=== PATIENT | female | born 1965 | race Caucasian/White ===

== ENCOUNTER 2016-08-14 17:46 | Inpatient (IN) ==
--- NOTE | 2016-08-14 18:21 | Emergency Department Note ---
Disposition Clinical Impression: Depression, Auditory hallucinations Disposition: Admitted As Inpatient Condition: Good Referrals: Eli Carrillo, GEODESIST [Partnered Physician] - Forms: ED Satisfaction Letter Time of Disposition: 22:25 Psych HPI - General Chief Complaint: ED Psychiatric Symptoms Stated Complaint: psych eval Time Seen by Provider: 08/14/16 17:59 Source: patient Mode of arrival: ambulatory Limitations: no limitations Nursing Notes Reviewed: Yes Vital Signs Reviewed: Yes - History of Present Illness HPI Narrative: This is a 51-year-old female who states she wants to be evaluated by [facility]. Patient states she feels like her psych medications are messed up and she is having auditory hallucinations and depression. Patient denies any active suicidal or homicidal thoughts. Patient states she has been mildly short of breath but denies any fever or coughing. Patient states she has not had any chest pain. Patient has no other physical complaints. Pt complaint: feels depressed, other (auditory hallucinations) Onset (ago): day(s) - Related Data Home Medications Medication Instructions Recorded Confirmed Albuterol Sulfate [Albuterol 1 - 2 puff IH Q6HR PRN 07/09/16 08/04/16 Inhaler] Aspirin [Lo-Dose Aspirin EC] 81 mg PO DAILY 07/09/16 08/04/16 Atorvastatin [Lipitor] 10 mg PO DAILY 07/09/16 08/04/16 Budesonide/Formoterol 80/4.5 2 puff IH BID 07/09/16 08/04/16 [Symbicort 80/4.5] Escitalopram [Lexapro] 30 mg PO DAILY 07/09/16 08/04/16 Hydroxychloroquine [Plaquenuil] 200 mg PO BID 07/09/16 08/04/16 Levothyroxine [Synthroid] 50 mcg PO DAILY 07/09/16 08/04/16 SitaGLIPtin [Januvia] 100 mg PO DAILY 07/09/16 08/04/16 Topiramate [Topamax] 100 mg PO QAM 07/09/16 08/04/16 Topiramate [Topamax] 200 mg PO HS 07/09/16 08/04/16 OxyCODONE Immed Rel [Roxicodone 5 5 mg PO Q6HR PRN 08/04/16 08/04/16 MG] Previous Rx's Medication Instructions Recorded TraZODone 50 mg PO HS PRN #30 tablet 07/15/16 Ziprasidone [Geodon] 20 mg PO BID #60 capsule 07/15/16 Atorvastatin [Lipitor] 40 mg PO HS #60 tablet 08/07/16 Omeprazole [PriLOSEC] 20 mg PO DAILY #20 cap 08/07/16 Allergies Allergy/AdvReac Type Severity Reaction Status Date / Time carbamazepine [From Tegretol] Allergy See Verified 08/11/16 20:11 Comments divalproex sodium Allergy See Verified 08/11/16 20:11 [From Depakote] Comments [place] Allergy See Verified 08/11/16 20:11 Comments meloxicam [From Mobic] Allergy See Verified 08/11/16 20:11 Comments phenytoin [From Dilantin] Allergy See Verified 08/11/16 20:11 Comments tramadol [From Ultram] Allergy See Verified 08/11/16 20:11 Comments methocarbamol [From Robaxin] AdvReac Dizziness Verified 08/11/16 20:11 NSAIDS (Non-Steroidal AdvReac See Verified 08/11/16 20:11 Anti-Inflamma Comments All systems ED: reviewed and negative except as stated. Constitutional: Denies: fever, chills, weakness, weight change Eyes: Denies: eye pain, eye discharge, vision change ENT ED: Denies: ear pain, throat pain, dental pain, hearing loss, epistaxis, congestion, dysphagia Cardiovascular: Denies: chest pain, palpitations, dyspnea on exertion, edema, syncope Respiratory: Reports: dyspnea. Denies: cough, wheezes, hemoptysis, stridor Gastrointestinal: Denies: abdominal pain, nausea, vomiting, diarrhea, constipation, hematemesis, melena, hematochezia Genitourinary: Denies: dysuria, frequency, hematuria, discharge Musculoskeletal: Denies: back pain, neck pain, arthralgia, myalgia Integumentary: Denies: rash, abrasion, lesions Neurological: Denies: headache, weakness, numbness, paresthesias, confusion, abnormal gait, vertigo Psychiatric: Reports: depression, auditory hallucinations. Denies: anxiety, suicidal thoughts, homicidal thoughts, visual hallucinations Endocrine: Denies: fatigue Hematological/Lymphatic: Denies: easy bleeding, easy bruising Allergic/Immunologic: Denies: facial swelling, urticaria Past Medical History - Past Medical History Attestation: Yes The following information was validated with the patient. Source: patient Medical history: Reports: arthritis, asthma, COPD, coronary artery disease, diabetes, fibromyalgia, GERD, hyperlipidemia, hypertension, kidney stones, migraine, osteoporosis, RA, thyroid disease, TIA, other Surgical history: Reports: appendectomy, hysterectomy, orthopedic, other (. Lumbar spine surgery. Back surgery.), sinus surgery (Tonsillectomy adenoidectomy. Maxillofacial reconstructive surgery.), VIKI/BSO (Ovarian surgery.), other (Vaginal reconstruction surgery.) Psychiatric history: Reports: anxiety, bipolar, depression, PTSD, prior suicide attempt, previous psychiatric hospitalization, other - Social History Smoking Status: Current every day smoker Smokeless Tobacco Status: No Alcohol use: Reports: none Drug use: Reports: none Physical Exam - General Limitations: no limitations General appearance: alert, in no apparent distress - Head Head exam: atraumatic, normocephalic, normal inspection - Eye Eye exam: Present: normal appearance, PERRL, EOMI - ENT ENT exam: normal exam, normal oropharynx, mucous membranes moist - Expanded ENT Exam External ear exam: Present: normal external inspection Mouth exam: Present: normal external inspection Teeth exam: Present: normal inspection Throat exam: Present: normal inspection - Neck Neck exam: Present: normal inspection, full ROM, trachea midline - Chest Chest inspection: Present: normal inspection, symmetric chest wall rise - Respiratory Respiratory exam: Present: normal lung sounds bilaterally - Cardiovascular Cardiovascular exam: Present: normal rhythm, tachycardia, normal heart sounds - Abdominal Exam Abdominal exam: Present: soft, Non-Tender. Absent: tenderness, distention, guarding, rebound, rigidity - Extremities Exam Extremities exam: Present: normal inspection, full ROM. Absent: tenderness, pedal edema - Expanded Upper Extremity Exam Shoulder exam: Present: normal inspection, full ROM Arm exam: Present: normal inspection, full ROM Elbow exam: Present: normal inspection, full ROM Forearm/Wrist exam: Present: normal inspection, full ROM Hand exam: Present: normal inspection, full ROM Vascular exam: Normal: capillary refill, radial pulse - Expanded Lower Extremity Exam Hip/Pelvis exam: Present: normal inspection, full ROM Upper leg exam: Present: normal inspection, full ROM Knee exam: Present: normal inspection, full ROM Lower leg exam: Present: normal inspection, full ROM Ankle exam: Present: normal inspection, full ROM Foot/toe exam: Present: normal inspection, full ROM Neurovascular/Tendon exam: Absent: motor deficit, sensory deficit, tendon deficit - Back Exam Back exam: Present: normal inspection, full ROM. Absent: tenderness - Neurological Exam Neurological exam: Present: alert, oriented X3 - Expanded Neurological Exam Patient oriented to: Present: person, place, time Coma Scale Eye Opening: Spontaneous Coma Scale Motor Response: Obeys Commands Coma Scale Verbal Response: Oriented Coma Scale Total: 15 - Psychiatric Psychiatric exam: Present: depressed, other (auditory hallucinations) - Skin Skin exam: Present: warm, dry, intact, normal color Course - Consultations Consultation #1: 1A evaluated pt and they are going to admit her. Time: 22:25 Vital Signs Temperature 97.4 F L 08/14/16 17:54 Pulse Rate 121 08/14/16 17:54 Respiratory Rate 18 08/14/16 17:54 Blood Pressure 132/90 08/14/16 17:54 O2 Sat by Pulse Oximetry 94 L 08/14/16 17:54 Temperature 97.4 F L 08/14/16 17:54 Pulse Rate 121 08/14/16 18:22 Respiratory Rate 18 08/14/16 18:22 Blood Pressure 132/90 08/14/16 18:22 O2 Sat by Pulse Oximetry 94 L 08/14/16 18:22 Oxygen Delivery Oxygen Delivery Room Air Psych - Medical Records Medical records reviewed: Yes I reviewed the patient's medical records. - Lab Data Lab results reviewed: Yes I reviewed the patient's lab results. Result diagrams: 08/14/16 18:37 08/14/16 18:37 Lab Results 08/14/16 08/14/16 08/14/16 Range/Units 18:37 18:37 18:37 WBC 9.8 (4.3-11.1) K/mcL RBC 5.58 H (3.82-4.97) M/mcL Hgb 17.3 H (11.5-15.4) g/dL Hct 50.4 H (35.3-44.9) % MCV 90.3 (83.0-100.0) fL MCH 31.0 (28.0-33.3) pg MCHC 34.3 (31.6-35.5) g/dL RDW 13.5 (11.5-14.5) % Plt Count 321 (140-400) K/mcL MPV 8.4 L (9.4-12.4) fL Immature Gran % 0.3 (0-4) % Seg Neutrophils % 58.4 % Lymphocytes % 34.3 % Monocytes % 6.4 % Eosinophils % 0.2 % Basophils % 0.4 % Neutrophils # 5.7 (1.6-8.9) K/mcL Lymphocytes # 3.4 (0.6-4.6) K/mcL Monocytes # 0.6 (0.0-1.3) K/mcL Eosinophils # 0.0 (0.0-0.6) K/mcL Basophils # 0.0 (0.0-0.2) K/mcL D-Dimer (0-500) ng/mLFEU Sodium 140 (136-145) mEq/L Potassium 3.3 L (3.5-4.5) mEq/L Chloride 106 (98-109) mEq/L Carbon Dioxide 23 (19-29) mEq/L BUN 10 (7-20) mg/dL Creatinine 0.94 (0.57-1.11) mg/dL Est GFR ( Amer) > 60 (> 60) Est GFR (Non-Af Amer) > 60 (> 60) BUN/Creatinine Ratio 11 (6-26) Glucose 142 H (70-99) mg/dL Calculated Osmolality 291 (280-300) Calcium 9.9 (8.6-10.8) mg/dL Total Bilirubin (0.2-1.2) mg/dL Direct Bilirubin (0.0-0.5) mg/dL Indirect Bilirubin (0.0-1.2) mg/dL AST (5-34) Units/L ALT (0-55) Units/L Alkaline Phosphatase (38-126) Units/L Troponin I (0-0.03) ng/mL B-Natriuretic Peptide < 10 (0-100) pg/mL Serum Total Protein (6.0-8.3) g/dL Albumin (3.5-5.0) g/dL Globulin (2.4-3.5) g/dL Albumin/Globulin Ratio (1.1-2.2) TSH (0.350-4.840) mcIU/mL Serum , Qual (Negative) Urine Color (Yellow) Urine Clarity (Clear) Urine pH (5.0-8.0) pH Units Ur Specific [place] (1.010-1.025) Urine Protein (Neg-Trace) mg/dL Urine Glucose (UA) (Normal) mg/dL Urine Ketones (Negative) mg/dL Urine Blood (Negative) Urine Nitrite (Negative) Urine Bilirubin (Negative) Urine Urobilinogen (Normal) mg/dL Ur Leukocyte Esterase (Negative) Urine Microscopic RBC (0-3) per hpf Urine Microscopic WBC (0-3) per hpf Ur Squamous Epith Cells (None-Few) per lpf Urine Bacteria (None-Few) per hpf Hyaline Casts (None-Few) per lpf Ur Culture Indicated? (NO) Salicylates (15-30) mg/dL Urine Opiates Screen (Styhkf=264) ng/mL Acetaminophen < 1.0 L (10-30) mcg/mL Ur Barbiturates Screen (Khcnvj=264) ng/mL Ur Phencyclidine Scrn (Cutoff=25) ng/mL Ur Amphetamines Screen (Awqelm=8760) ng/mL U Benzodiazepines Scrn (Mkuixe=625) ng/mL Urine Cocaine Screen (Cutoff= 300) ng/mL U Marijuana (THC) Screen (Cutoff = 50) ng/mL Ethyl Alcohol (0-10) mg/dL 08/14/16 08/14/16 08/14/16 Range/Units 18:37 18:37 18:37 WBC (4.3-11.1) K/mcL RBC (3.82-4.97) M/mcL Hgb (11.5-15.4) g/dL Hct (35.3-44.9) % MCV (83.0-100.0) fL MCH (28.0-33.3) pg MCHC (31.6-35.5) g/dL RDW (11.5-14.5) % Plt Count (140-400) K/mcL MPV (9.4-12.4) fL Immature Gran % (0-4) % Seg Neutrophils % % Lymphocytes % % Monocytes % % Eosinophils % % Basophils % % Neutrophils # (1.6-8.9) K/mcL Lymphocytes # (0.6-4.6) K/mcL Monocytes # (0.0-1.3) K/mcL Eosinophils # (0.0-0.6) K/mcL Basophils # (0.0-0.2) K/mcL D-Dimer (0-500) ng/mLFEU Sodium (136-145) mEq/L Potassium (3.5-4.5) mEq/L Chloride (98-109) mEq/L Carbon Dioxide (19-29) mEq/L BUN (7-20) mg/dL Creatinine (0.57-1.11) mg/dL Est GFR ( Amer) (> 60) Est GFR (Non-Af Amer) (> 60) BUN/Creatinine Ratio (6-26) Glucose (70-99) mg/dL Calculated Osmolality (280-300) Calcium (8.6-10.8) mg/dL Total Bilirubin 0.3 (0.2-1.2) mg/dL Direct Bilirubin 0.1 (0.0-0.5) mg/dL Indirect Bilirubin 0.2 (0.0-1.2) mg/dL AST 15 (5-34) Units/L ALT 15 (0-55) Units/L Alkaline Phosphatase 65 (38-126) Units/L Troponin I 0.00 (0-0.03) ng/mL B-Natriuretic Peptide (0-100) pg/mL Serum Total Protein 8.2 (6.0-8.3) g/dL Albumin 4.2 (3.5-5.0) g/dL Globulin 4.0 H (2.4-3.5) g/dL Albumin/Globulin Ratio 1.1 (1.1-2.2) TSH 5.099 H (0.350-4.840) mcIU/mL Serum , Qual Negative (Negative) Urine Color (Yellow) Urine Clarity (Clear) Urine pH (5.0-8.0) pH Units Ur Specific [place] (1.010-1.025) Urine Protein (Neg-Trace) mg/dL Urine Glucose (UA) (Normal) mg/dL Urine Ketones (Negative) mg/dL Urine Blood (Negative) Urine Nitrite (Negative) Urine Bilirubin (Negative) Urine Urobilinogen (Normal) mg/dL Ur Leukocyte Esterase (Negative) Urine Microscopic RBC (0-3) per hpf Urine Microscopic WBC (0-3) per hpf Ur Squamous Epith Cells (None-Few) per lpf Urine Bacteria (None-Few) per hpf Hyaline Casts (None-Few) per lpf Ur Culture Indicated? (NO) Salicylates < 5.0 L (15-30) mg/dL Urine Opiates Screen (Rwrulm=646) ng/mL Acetaminophen (10-30) mcg/mL Ur Barbiturates Screen (Jtpjcc=935) ng/mL Ur Phencyclidine Scrn (Cutoff=25) ng/mL Ur Amphetamines Screen (Svriax=2417) ng/mL U Benzodiazepines Scrn (Mimakl=477) ng/mL Urine Cocaine Screen (Cutoff= 300) ng/mL U Marijuana (THC) Screen (Cutoff = 50) ng/mL Ethyl Alcohol < 10 (0-10) mg/dL 08/14/16 08/14/16 08/14/16 Range/Units 18:37 19:00 19:00 WBC (4.3-11.1) K/mcL RBC (3.82-4.97) M/mcL Hgb (11.5-15.4) g/dL Hct (35.3-44.9) % MCV (83.0-100.0) fL MCH (28.0-33.3) pg MCHC (31.6-35.5) g/dL RDW (11.5-14.5) % Plt Count (140-400) K/mcL MPV (9.4-12.4) fL Immature Gran % (0-4) % Seg Neutrophils % % Lymphocytes % % Monocytes % % Eosinophils % % Basophils % % Neutrophils # (1.6-8.9) K/mcL Lymphocytes # (0.6-4.6) K/mcL Monocytes # (0.0-1.3) K/mcL Eosinophils # (0.0-0.6) K/mcL Basophils # (0.0-0.2) K/mcL D-Dimer < 215 (0-500) ng/mLFEU Sodium (136-145) mEq/L Potassium (3.5-4.5) mEq/L Chloride (98-109) mEq/L Carbon Dioxide (19-29) mEq/L BUN (7-20) mg/dL Creatinine (0.57-1.11) mg/dL Est GFR ( Amer) (> 60) Est GFR (Non-Af Amer) (> 60) BUN/Creatinine Ratio (6-26) Glucose (70-99) mg/dL Calculated Osmolality (280-300) Calcium (8.6-10.8) mg/dL Total Bilirubin (0.2-1.2) mg/dL Direct Bilirubin (0.0-0.5) mg/dL Indirect Bilirubin (0.0-1.2) mg/dL AST (5-34) Units/L ALT (0-55) Units/L Alkaline Phosphatase (38-126) Units/L Troponin I (0-0.03) ng/mL B-Natriuretic Peptide (0-100) pg/mL Serum Total Protein (6.0-8.3) g/dL Albumin (3.5-5.0) g/dL Globulin (2.4-3.5) g/dL Albumin/Globulin Ratio (1.1-2.2) TSH (0.350-4.840) mcIU/mL Serum , Qual (Negative) Urine Color Yellow (Yellow) Urine Clarity Clear (Clear) Urine pH 6.0 (5.0-8.0) pH Units Ur Specific [place] 1.008 L (1.010-1.025) Urine Protein Negative (Neg-Trace) mg/dL Urine Glucose (UA) Normal (Normal) mg/dL Urine Ketones 15 H (Negative) mg/dL Urine Blood Negative (Negative) Urine Nitrite Negative (Negative) Urine Bilirubin Negative (Negative) Urine Urobilinogen Normal (Normal) mg/dL Ur Leukocyte Esterase Trace H (Negative) Urine Microscopic RBC 0-3 (0-3) per hpf Urine Microscopic WBC 5-15 H (0-3) per hpf Ur Squamous Epith Cells Many H (None-Few) per lpf Urine Bacteria Few (None-Few) per hpf Hyaline Casts None Seen (None-Few) per lpf Ur Culture Indicated? YES A (NO) Salicylates (15-30) mg/dL Urine Opiates Screen Negative (Nfcezy=185) ng/mL Acetaminophen (10-30) mcg/mL Ur Barbiturates Screen Negative (Fdedfy=992) ng/mL Ur Phencyclidine Scrn Negative (Cutoff=25) ng/mL Ur Amphetamines Screen Negative (Juymnm=5449) ng/mL U Benzodiazepines Scrn Negative (Pihdop=010) ng/mL Urine Cocaine Screen Negative (Cutoff= 300) ng/mL U Marijuana (THC) Screen Negative (Cutoff = 50) ng/mL Ethyl Alcohol (0-10) mg/dL - EKG Data EKG attestation: Yes I reviewed and interpreted this EKG. EKG shows normal: sinus rhythm Rate: tachycardia (113) Rhythm: NSR Foster/QRS: normal Interpretation: nonspecific ST-T wave changes Psychiatric Medical Clearance - Medical Clearance Checklist Medical History: No Social History Section defined Current Vitals: Last Vital Signs Temp 97.4 F L 08/14/16 17:54 Pulse 121 08/14/16 18:22 Resp 18 08/14/16 18:22 BP 132/90 08/14/16 18:22 Pulse Ox 94 L 08/14/16 18:22 Psychiatric Lab Panel: Drug Levels and Toxicity 08/14/16 08/14/16 08/14/16 18:37 18:37 19:00 Urine Opiates Screen Negative Acetaminophen < 1.0 L Ur Barbiturates Screen Negative Ur Phencyclidine Scrn Negative Ur Amphetamines Screen Negative U Benzodiazepines Scrn Negative Urine Cocaine Screen Negative U Marijuana (THC) Screen Negative Ethyl Alcohol < 10 Abnormal Labs: Abnormal lab results RBC 5.58 M/mcL (3.82-4.97) H 08/14/16 18:37 Hgb 17.3 g/dL (11.5-15.4) H 08/14/16 18:37 Hct 50.4 % (35.3-44.9) H 08/14/16 18:37 MPV 8.4 fL (9.4-12.4) L 08/14/16 18:37 Potassium 3.3 mEq/L (3.5-4.5) L 08/14/16 18:37 Glucose 142 mg/dL (70-99) H 08/14/16 18:37 Globulin 4.0 g/dL (2.4-3.5) H 08/14/16 18:37 TSH 5.099 mcIU/mL (0.350-4.840) H 08/14/16 18:37 Ur Specific [place] 1.008 (1.010-1.025) L 08/14/16 19:00 Urine Ketones 15 mg/dL (Negative) H 08/14/16 19:00 Ur Leukocyte Esterase Trace (Negative) H 08/14/16 19:00 Urine Microscopic WBC 5-15 per hpf (0-3) H 08/14/16 19:00 Ur Squamous Epith Cells Many per lpf (None-Few) H 08/14/16 19:00 Ur Culture Indicated? YES (NO) A 08/14/16 19:00 Salicylates < 5.0 mg/dL (15-30) L 08/14/16 18:37 Acetaminophen < 1.0 mcg/mL (10-30) L 08/14/16 18:37 Statement of Medical Clearance: I have evaluated the patient, reviewed diagnostic information, and certify that the patient's medical condition is sufficiently stable that transfer to the psychiatric unit does not pose a significant risk of deterioration.
[2016-08-14 18:54] LABS: Basophils % 0.4 %; Eosinophils % 0.2 %; Hematocrit 50.4 % (35.3-44.9); Hemoglobin 17.3 g/dL (11.5-15.4); Immature Granulocytes % 0.3 % (0-4); Lymphocytes # 3.4 K/mcL (0.6-4.6); Lymphocytes % 34.3 %; Mean Corpuscular HGB Conc 34.3 g/dL (31.6-35.5); Mean Corpuscular Volume 90.3 fL (83.0-100.0); Mean Platelet Volume 8.4 fL (9.4-12.4); Monocytes # 0.6 K/mcL (0.0-1.3); Monocytes % 6.4 %; Neutrophils # 5.7 K/mcL (1.6-8.9); Platelet Count 321 K/mcL (140-400); Red Blood Count 5.58 M/mcL (3.82-4.97); Red Cell Distribution Width 13.5 % (11.5-14.5); Segmented Neutrophils % 58.4 %
[2016-08-14 19:10] LABS: Alanine Aminotransferase 15 Units/L (0-55); Albumin 4.2 g/dL (3.5-5.0); Albumin/Globulin Ratio 1.1 (1.1-2.2); Alkaline Phosphatase 65 Units/L (38-126); Aspartate Amino Transferase 15 Units/L (5-34); BUN/Creatinine Ratio 11 (6-26); Bilirubin,Direct 0.1 mg/dL (0.0-0.5); Bilirubin,Indirect 0.2 mg/dL (0.0-1.2); Bilirubin,Total 0.3 mg/dL (0.2-1.2); Blood Urea Nitrogen 10 mg/dL (7-20); Calcium 9.9 mg/dL (8.6-10.8); Carbon Dioxide 23 mEq/L (19-29); Chloride 106 mEq/L (98-109); Glucose 142 mg/dL (70-99); Osmolality,Calculated 291 (280-300); Potassium 3.3 mEq/L (3.5-4.5); Sodium 140 mEq/L (136-145); Total Protein 8.2 g/dL (6.0-8.3); eGFR For African Americans > 60 (> 60); eGFR For Non-African Americans > 60 (> 60)
[2016-08-14 19:11] LABS: Acetaminophen < 1.0 mcg/mL (10-30); Ethanol < 10 mg/dL (0-10); Salicylate < 5.0 mg/dL (15-30)
[2016-08-14 19:12] LABS: Bilirubin,Urine Negative (Negative); Blood,Urine Negative (Negative); Clarity,Urine Clear (Clear); Color,Urine Yellow (Yellow); Glucose,Urine (UA) Normal (Normal); Ketones,Urine 15 mg/dL (Negative); Leukocyte Esterase,Urine Trace (Negative); Nitrite,Urine Negative (Negative); Protein,Urine Negative (Neg-Trace); Specific Gravity,Urine 1.008 (1.010-1.025); Urobilinogen,Urine Normal (Normal)
[2016-08-14 19:17] LABS: Amphetamine Screen,Urine Negative ng/mL (Cutoff=1000); Bacteria,Urine Few per hpf (None-Few); Barbiturate Screen,Urine Negative ng/mL (Cutoff=200); Benzodiazepines Screen,Urine Negative ng/mL (Cutoff=200); Cannabinoid Screen,Urine Negative ng/mL (Cutoff = 50); Cocaine Screen,Urine Negative ng/mL (Cutoff= 300); Hyaline Casts,Urine None Seen per lpf (None-Few); Opiate Screen,Urine Negative ng/mL (Cutoff=300); Phencyclidine Screen,Urine Negative ng/mL (Cutoff=25); Squamous Epithelial Cell,Urine Many per lpf (None-Few)
[2016-08-14 19:31] LABS: Thyroid Stimulating Hormone 5.099 mcIU/mL (0.350-4.840)
[2016-08-14 19:35] LABS: RBC,Urine 0-3 per hpf (0-3)
[2016-08-15] MEDS ORDERED: Haloperidol Lactate 5 MG/ML VIAL IM PRN (02:33)
[2016-08-15] MEDS ORDERED: Mag Hydrox/Al Hydrox/Simeth 30 ML UDC PO PRN (02:33)
[2016-08-15] MEDS ORDERED: *HR* LORazepam 2 MG/ML VIAL IM PRN (02:33)
[2016-08-15] MEDS ORDERED: *HR* LORazepam 1 MG TABLET PO PRN (02:33)
[2016-08-15] MEDS ORDERED: Acetaminophen 325 MG TABLET PO PRN (02:33)
[2016-08-15] MEDS ORDERED: MOM Conc 10 ML UD.LIQ PO PRN (02:33)
[2016-08-15] MEDS: Topiramate 100 MG TABLET PO SCH ×2 (09:40→21:34)
[2016-08-15] MEDS: *HR* SitaGLIPtin 100 MG TABLET PO SCH (09:40)
[2016-08-15] MEDS: Nicotine 21 MG PATCH.TD24 TD SCH (09:40)
[2016-08-15] MEDS: Aspirin Enteric Coated 81 MG Tablet PO SCH (09:40)
[2016-08-15] MEDS: Ziprasidone 20 MG CAPSULE PO SCH ×2 (09:40→21:34)
[2016-08-15] MEDS: Budesonide/Formoterol 80/4.5 MDI IH SCH (09:42)
--- NOTE | 2016-08-15 10:47 | Psychiatry History & Physical ---
Date of Encounter: 08/15/16 Time of Encounter: 10:40 History of Present Illness Patient Stated Chief Complaint: "I am not sure" Medicare Admission Attestation: For traditional Medicare patients the provided hospital inpatient services are reasonable and necessary and in the case of services not specified as inpatient -only under 42 CFR 419.22 (n), that they are appropriately provided as inpatient services in accordance 42 CFR 412.3. For Critical Access Hospital the patient may reasonably be expected to be discharged or transferred to a hospital within 96 hours after admission to the Critical Access Hospital. Admitted From: Emergency Dept Plans for Post Hospital Care: Home History of Present Illness: Ms. Ash is a 51 year old female who is known to us from recent hospitalization. She is noted to have a diagnosis of bipolar disorder. Patient was back in the emergency department with complaint of hearing voices. Patient was confused and endorsing auditory hallucinations. Patient has not been compliant with her medications especially the Geodon and been noticing a relapse of her psychotic symptoms. Patient was overwhelmed and anxious and kept responding with her answers "I do not know" and "I am not sure". A detailed account of history is unable to be gathered since patient is not very cooperative and forthcoming during the interview. Most of the history is gathered from her previous records, from her recent hospitalization. She did endorse depressed mood with sadness hopeless and helpless feelings. She was unable to identify any trigger or precipitating factor for her recent bout of depression and hallucinations other than being noncompliant with her medications. Since patient is reporting of auditory hallucinations and is decompensating and deteriorating it was decided to hospitalize her at [facility] for stabilization Past Med Surg Social Fam HX - Past Medical History Medical history: arthritis, asthma, COPD, coronary artery disease, diabetes, fibromyalgia, GERD, hyperlipidemia, hypertension, kidney stones, migraine, osteoporosis, RA, thyroid disease, TIA, other - Past Psychiatric History Psychiatric history: Reports: anxiety, bipolar, depression, previous psychiatric hospitalization Past psychiatric history details: The patient is noted to have a diagnosis of bipolar disorder. Patient was recently hospitalized with us approximately a month ago. Family psychiatric history: Yes Family Psychiatric History Details: Mother had bipolar disorder and father also has mental health problems. Family History of Suicide: Completed - Past Surgical History Surgical History: appendectomy, hysterectomy, orthopedic, other, sinus surgery, VIKI/BSO, other - Social History Smoking Status: Current every day smoker Smokeless Tobacco Status: No Alcohol use: none Drug use: none Occupational status: disabled Current living situation: Home Activity Level: Independent ambulation Recent Out of Country Travel Within the Last 8 Weeks: No Exposure or Possible Exposure to Illness During Travel: No Medications & Allergies Albuterol Sulfate [Albuterol Inhaler] 1 - 2 puff IH Q6HR PRN 07/09/16 [History] Aspirin [Lo-Dose Aspirin EC] 81 mg PO DAILY 07/09/16 [History] Budesonide/Formoterol 80/4.5 [Symbicort 80/4.5] 2 puff IH BID 07/09/16 [History ] Escitalopram [Lexapro] 30 mg PO DAILY 07/09/16 [History] Hydroxychloroquine [Plaquenuil] 200 mg PO BID 07/09/16 [History] Levothyroxine [Synthroid] 50 mcg PO DAILY 07/09/16 [History] SitaGLIPtin [Januvia] 100 mg PO DAILY 07/09/16 [History] Topiramate [Topamax] 100 mg PO QAM 07/09/16 [History] Topiramate [Topamax] 200 mg PO HS 07/09/16 [History] TraZODone 50 mg PO HS PRN #30 tablet 07/15/16 [Rx] Ziprasidone [Geodon] 20 mg PO BID #60 capsule 07/15/16 [Rx] OxyCODONE Immed Rel [Roxicodone 5 MG] 5 mg PO Q6HR PRN 08/04/16 [History] Atorvastatin [Lipitor] 40 mg PO HS #60 tablet 08/07/16 [Rx] Omeprazole [PriLOSEC] 20 mg PO DAILY #20 cap 08/07/16 [Rx] Allergies carbamazepine [From Tegretol] Allergy (Verified 08/11/16 20:11) See Comments UNABLE TO VERIFY REACTION- NOT LISTED ON PATIENT'S ECW LAST APPT. AND PATIENT UNABLE TO CONFIRM- ALL ALLERGIES/REACTIONS OBTAINED FROM PATIENT'S PCP: DR. VELEZ divalproex sodium [From Depakote] Allergy (Verified 08/11/16 20:11) See Comments UNABLE TO VERIFY REACTION- NOT LISTED ON PATIENT'S ECW LAST APPT. AND PATIENT UNABLE TO CONFIRM- ALL ALLERGIES/REACTIONS OBTAINED FROM PATIENT'S PCP: DR. VELEZ [place] Allergy (Verified 08/11/16 20:11) See Comments UNABLE TO VERIFY REACTION- NOT LISTED ON PATIENT'S ECW LAST APPT. AND PATIENT UNABLE TO CONFIRM- ALL ALLERGIES/REACTIONS OBTAINED FROM PATIENT'S PCP: DR. VELEZ meloxicam [From Mobic] Allergy (Verified 08/11/16 20:11) See Comments UNABLE TO VERIFY REACTION- NOT LISTED ON PATIENT'S ECW LAST APPT. AND PATIENT UNABLE TO CONFIRM- ALL ALLERGIES/REACTIONS OBTAINED FROM PATIENT'S PCP: DR. VELEZ phenytoin [From Dilantin] Allergy (Verified 08/11/16 20:11) See Comments UNABLE TO VERIFY REACTION- NOT LISTED ON PATIENT'S ECW LAST APPT. AND PATIENT UNABLE TO CONFIRM- ALL ALLERGIES/REACTIONS OBTAINED FROM PATIENT'S PCP: DR. VELEZ tramadol [From Ultram] Allergy (Verified 08/11/16 20:11) See Comments UNABLE TO VERIFY REACTION- NOT LISTED ON PATIENT'S ECW LAST APPT. AND PATIENT UNABLE TO CONFIRM- ALL ALLERGIES/REACTIONS OBTAINED FROM PATIENT'S PCP: DR. VELEZ methocarbamol [From Robaxin] Adverse Reaction (Verified 08/11/16 20:11) Dizziness NSAIDS (Non-Steroidal Anti-Inflamma Adverse Reaction (Verified 08/11/16 20:11) See Comments ELEVATED LIVER ENZYMES Review of Systems Constitutional: Denies: fever, chills, weakness, weight change Eyes: Denies: eye pain, vision change Ears, Nose, Throat: Denies: ear pain, throat pain, dental pain, hearing loss, congestion Cardiovascular: Denies: chest pain, palpitations, dyspnea on exertion Respiratory: Denies: cough, dyspnea, wheezes Gastrointestinal: Denies: abdominal pain, nausea, vomiting, diarrhea, constipation Genitourinary male: Denies: urgency, dysuria, frequency, genital lesions Genitourinary female: Denies: urgency, dysuria, frequency, abnormal menses, dyspareunia Musculoskeletal: Denies: joint swelling, joint pain Integumentary: Denies: rash, lesions, pruritus Neurological: Denies: headache, weakness, numbness, memory loss Psychiatric: Reports: depression, anxiety, auditory hallucinations, difficulty concentrating, hopelessness Endocrine: Denies: fatigue, heat or cold intolerance Hematologic/Lymphatic: Denies: easy bruising, lymphadenopathy Allergic/Immunologic: Denies: urticaria, itchy eyes Mental Status Exam Patient orientation: Yes Person, Yes Time, Yes Place Level of alertness: Other (At times appears confused and kept on referring as " I do not know") Patient appearance: Disheveled Behavior: nervous, anxious, dramatic Psychomotor activity: Normal Eye contact: Maintains Eye Contact Mood description: Depressed, Anxious Affect description: dysphoric, anxious Speech pattern: Normal rate, Normal rhythm, Normal tone Speech volume: Normal Thought process: Disorganized Thought content: Yes Intact Perceptual disturbances: Yes Auditory hallucinations Memory description: Grossly Intact Patient reliability: Not Reliable Historian Intelligence estimate: Average Judgment: Limited Insight: Minimal Results - Vital Signs Vital signs: Temp Pulse Resp BP Pulse Ox 98.7 F 103 20 132/91 96 08/15/16 09:00 08/15/16 09:00 08/15/16 09:00 08/15/16 09:00 08/14/16 23:39 - Labs Labs: Laboratory Last Values WBC 9.8 K/mcL (4.3-11.1) 08/14/16 18:37 RBC 5.58 M/mcL (3.82-4.97) H 08/14/16 18:37 Hgb 17.3 g/dL (11.5-15.4) H 08/14/16 18:37 Hct 50.4 % (35.3-44.9) H 08/14/16 18:37 MCV 90.3 fL (83.0-100.0) 08/14/16 18:37 MCH 31.0 pg (28.0-33.3) 08/14/16 18:37 MCHC 34.3 g/dL (31.6-35.5) 08/14/16 18:37 RDW 13.5 % (11.5-14.5) 08/14/16 18:37 Plt Count 321 K/mcL (140-400) 08/14/16 18:37 MPV 8.4 fL (9.4-12.4) L 08/14/16 18:37 Immature Gran % 0.3 % (0-4) 08/14/16 18:37 Seg Neutrophils % 58.4 % 08/14/16 18:37 Lymphocytes % 34.3 % 08/14/16 18:37 Monocytes % 6.4 % 08/14/16 18:37 Eosinophils % 0.2 % 08/14/16 18:37 Basophils % 0.4 % 08/14/16 18:37 Neutrophils # 5.7 K/mcL (1.6-8.9) 08/14/16 18:37 Lymphocytes # 3.4 K/mcL (0.6-4.6) 08/14/16 18:37 Monocytes # 0.6 K/mcL (0.0-1.3) 08/14/16 18:37 Eosinophils # 0.0 K/mcL (0.0-0.6) 08/14/16 18:37 Basophils # 0.0 K/mcL (0.0-0.2) 08/14/16 18:37 D-Dimer < 215 ng/mLFEU (0-500) 08/14/16 18:37 Sodium 140 mEq/L (136-145) 08/14/16 18:37 Potassium 3.3 mEq/L (3.5-4.5) L 08/14/16 18:37 Chloride 106 mEq/L (98-109) 08/14/16 18:37 Carbon Dioxide 23 mEq/L (19-29) 08/14/16 18:37 BUN 10 mg/dL (7-20) 08/14/16 18:37 Creatinine 0.94 mg/dL (0.57-1.11) 08/14/16 18:37 Est GFR ( Amer) > 60 (> 60) 08/14/16 18:37 Est GFR (Non-Af Amer) > 60 (> 60) 08/14/16 18:37 BUN/Creatinine Ratio 11 (6-26) 08/14/16 18:37 Glucose 142 mg/dL (70-99) H 08/14/16 18:37 POC Glucose 130 (58-89) H 08/15/16 08:36 Calculated Osmolality 291 (280-300) 08/14/16 18:37 Calcium 9.9 mg/dL (8.6-10.8) 08/14/16 18:37 Total Bilirubin 0.3 mg/dL (0.2-1.2) 08/14/16 18:37 Direct Bilirubin 0.1 mg/dL (0.0-0.5) 08/14/16 18:37 Indirect Bilirubin 0.2 mg/dL (0.0-1.2) 08/14/16 18:37 AST 15 Units/L (5-34) 08/14/16 18:37 ALT 15 Units/L (0-55) 08/14/16 18:37 Alkaline Phosphatase 65 Units/L (38-126) 08/14/16 18:37 Troponin I 0.00 ng/mL (0-0.03) 08/14/16 18:37 B-Natriuretic Peptide < 10 pg/mL (0-100) 08/14/16 18:37 Serum Total Protein 8.2 g/dL (6.0-8.3) 08/14/16 18:37 Albumin 4.2 g/dL (3.5-5.0) 08/14/16 18:37 Globulin 4.0 g/dL (2.4-3.5) H 08/14/16 18:37 Albumin/Globulin Ratio 1.1 (1.1-2.2) 08/14/16 18:37 TSH 5.099 mcIU/mL (0.350-4.840) H 08/14/16 18:37 Serum , Qual Negative (Negative) 08/14/16 18:37 Urine Color Yellow (Yellow) 08/14/16 19:00 Urine Clarity Clear (Clear) 08/14/16 19:00 Urine pH 6.0 pH Units (5.0-8.0) 08/14/16 19:00 Ur Specific [place] 1.008 (1.010-1.025) L 08/14/16 19:00 Urine Protein Negative mg/dL (Neg-Trace) 08/14/16 19:00 Urine Glucose (UA) Normal mg/dL (Normal) 08/14/16 19:00 Urine Ketones 15 mg/dL (Negative) H 08/14/16 19:00 Urine Blood Negative (Negative) 08/14/16 19:00 Urine Nitrite Negative (Negative) 08/14/16 19:00 Urine Bilirubin Negative (Negative) 08/14/16 19:00 Urine Urobilinogen Normal mg/dL (Normal) 08/14/16 19:00 Ur Leukocyte Esterase Trace (Negative) H 08/14/16 19:00 Urine Microscopic RBC 0-3 per hpf (0-3) 08/14/16 19:00 Urine Microscopic WBC 5-15 per hpf (0-3) H 08/14/16 19:00 Ur Squamous Epith Cells Many per lpf (None-Few) H 08/14/16 19:00 Urine Bacteria Few per hpf (None-Few) 08/14/16 19:00 Hyaline Casts None Seen per lpf (None-Few) 08/14/16 19:00 Ur Culture Indicated? YES (NO) A 08/14/16 19:00 Salicylates < 5.0 mg/dL (15-30) L 08/14/16 18:37 Urine Opiates Screen Negative ng/mL (Srwheu=954) 08/14/16 19:00 Acetaminophen < 1.0 mcg/mL (10-30) L 08/14/16 18:37 Ur Barbiturates Screen Negative ng/mL (Toeftd=111) 08/14/16 19:00 Ur Phencyclidine Scrn Negative ng/mL (Cutoff=25) 08/14/16 19:00 Ur Amphetamines Screen Negative ng/mL (Eupgfp=0081) 08/14/16 19:00 U Benzodiazepines Scrn Negative ng/mL (Jbjgpn=829) 08/14/16 19:00 Urine Cocaine Screen Negative ng/mL (Cutoff= 300) 08/14/16 19:00 U Marijuana (THC) Screen Negative ng/mL (Cutoff = 50) 08/14/16 19:00 Ethyl Alcohol < 10 mg/dL (0-10) 08/14/16 18:37 Assessment and Plan (1) Bipolar disorder Current visit: No Status: Chronic Plan: Admit inpatient for safety and stabilization, Close observation, Suicide Precautions per unit protocol, Encourage participation in unit milieu, Group Therapy, Monitor sleep, Monitor appetite, Other Additional Plan: We will restart patient's home medications which include Lexapro and Geodon and Topamax for her bipolar disorder. We will also emphasize on compliance and adherence. Risks, benefits, side effects, alternatives discussed w/pt: Yes Patient agreeable to treatment: Yes Plans for Post Hospital Care: Home Estimated Length of Stay (Days): 4 Qualifiers: Active/Remission status: currently active Current bipolar episode type: depressed Current episode severity: severe Psychotic features: with psychotic features Qualified Code(s): F31.5 - Bipolar disorder, current episode depressed, severe, with psychotic features
[2016-08-16] MEDS: Budesonide/Formoterol 80/4.5 MDI IH SCH ×3 (03:03→21:17)
[2016-08-16] MEDS: Ziprasidone 20 MG CAPSULE PO SCH ×2 (09:19→20:14)
[2016-08-16] MEDS: *HR* SitaGLIPtin 100 MG TABLET PO SCH (09:19)
[2016-08-16] MEDS: Aspirin Enteric Coated 81 MG Tablet PO SCH (09:19)
[2016-08-16] MEDS: Topiramate 100 MG TABLET PO SCH ×2 (09:19→20:15)
[2016-08-16] MEDS: Nicotine 21 MG PATCH.TD24 TD SCH (09:21)
--- NOTE | 2016-08-16 11:28 | Psychiatry Progress Note ---
Date of Encounter: 08/16/16 Time of Encounter: 10:22 Subjective Interval history: Patient seen and interviewed. Slight improvement to a point where she is able to verbalize her ongoing challenges and stressors. Patient did endorse him feeling extremely lonely and hopeless at home. She reported that holidays were tough because no family member was around and she was all by herself. She did report of having a daughter but she is very busy and does not have time for her. Patient also has siblings but she is not closer attached to them. She reported that loneliness is the biggest challenge and that she is dealing in her life. Patient is open to starting some groups or volunteer work or latter-day activities upon discharge from the hospital. Still endorsing some voices and anxiety. Patient is tearful and hopeless. Denies any suicidal ideations but unable to verbalize a safety plan. Patient is encouraged to attend groups and work on a safety plan. Tolerating medications fairly well. Review of Systems Psychiatric: Reports: depression, anxiety, auditory hallucinations, difficulty concentrating, hopelessness Objective: Exam Patient orientation: Yes Person, Yes Time, Yes Place Level of alertness: Other (At times appears confused and kept on referring as " I do not know") Patient appearance: Disheveled Behavior: nervous, anxious, dramatic Psychomotor activity: Normal Eye contact: Maintains Eye Contact Mood description: Depressed, Anxious Affect description: dysphoric, anxious Speech pattern: Normal rate, Normal rhythm, Normal tone Speech volume: Normal Thought process: Disorganized Thought content: Yes Intact, No Suicidal ideation, No Homicidal ideation, No Overt delusions Perceptual disturbances: Yes Auditory hallucinations Judgment: Limited Insight: Minimal Results - Vital Signs Vital Signs: Temp Pulse Resp BP Pulse Ox 98.5 F 107 20 135/100 96 08/16/16 09:00 08/16/16 09:00 08/16/16 09:00 08/16/16 09:00 08/14/16 23:39 - Labs Labs: Laboratory Results - last 24 hr 08/15/16 08/16/16 20:49 09:18 POC Glucose 96 H 156 H Assessment and Plan (1) Bipolar disorder Current visit: No Status: Chronic Plan: Continue hospitalization, Close observation, Suicide Precautions per unit protocol, Encourage participation in unit milieu, Group Therapy, Monitor sleep, Monitor appetite Additional Plan: We will increase Geodon to 40 mg twice a day for her auditory hallucinations and mood stabilization Risks, benefits, side effects, alternatives discussed w/pt: Yes Patient agreeable to treatment: Yes Qualifiers: Active/Remission status: currently active Current bipolar episode type: depressed Current episode severity: severe Psychotic features: with psychotic features Qualified Code(s): F31.5 - Bipolar disorder, current episode depressed, severe, with psychotic features Consult Discharge Plan - Plan Referrals: NO,PCP [Primary Care Provider] -
[2016-08-16] MEDS: hydrOXYzine pamoate 25 MG CAPSULE PO PRN (20:14)
[2016-08-16] MEDS: traZODone 50 MG TABLET PO PRN (20:15)
[2016-08-17] MEDS: Ziprasidone 20 MG CAPSULE PO SCH ×2 (08:46→21:27)
[2016-08-17] MEDS: Aspirin Enteric Coated 81 MG Tablet PO SCH (08:46)
[2016-08-17] MEDS: Topiramate 100 MG TABLET PO SCH ×2 (08:47→21:27)
[2016-08-17] MEDS: *HR* SitaGLIPtin 100 MG TABLET PO SCH (08:48)
[2016-08-17] MEDS: Nicotine 21 MG PATCH.TD24 TD SCH (08:49)
[2016-08-17] MEDS: Budesonide/Formoterol 80/4.5 MDI IH SCH ×2 (10:03→21:26)
--- NOTE | 2016-08-17 12:12 | Electrocardiograph Report ---
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
[2016-08-17] MEDS: traZODone 50 MG TABLET PO PRN (21:26)
[2016-08-18] MEDS: Nicotine 21 MG PATCH.TD24 TD SCH (08:52)
[2016-08-18] MEDS: Ziprasidone 20 MG CAPSULE PO SCH ×2 (08:52→21:10)
[2016-08-18] MEDS: *HR* SitaGLIPtin 100 MG TABLET PO SCH (08:53)
[2016-08-18] MEDS: Aspirin Enteric Coated 81 MG Tablet PO SCH (08:53)
[2016-08-18] MEDS: Topiramate 100 MG TABLET PO SCH ×2 (08:53→21:11)
[2016-08-18] MEDS: Budesonide/Formoterol 80/4.5 MDI IH SCH ×2 (09:24→21:12)
--- NOTE | 2016-08-18 12:24 | Psychiatry Progress Note ---
Date of Encounter: 08/17/16 Time of Encounter: 15:45 Subjective Interval history: Patient was seen for follow-up. Nursing staff report she is complaining of anxiety and feeling confused. Review of labs show elevated TSH indicating noncompliance with medication. She reports her sleep is adequate and denied any suicidal ideation. concerned about being lonely and lack of support. She is tolerating her medication and denies any side effects. Review of Systems Psychiatric: Reports: depression, anxiety, confusion, difficulty concentrating, mood swings Objective: Exam Patient orientation: Yes Person, Yes Time, Yes Place Level of alertness: Alert, Other (At times appears confused and kept on referring as "I do not know") Patient appearance: Well Groomed, Disheveled Behavior: cooperative, nervous, anxious, dramatic Psychomotor activity: Normal Eye contact: Maintains Eye Contact Mood description: Depressed, Anxious Affect description: labile, blunted, anxious Speech pattern: Normal rate, Normal rhythm, Normal tone, Coherent Speech volume: Normal Thought process: Logical, Goal Oriented, Circumstantial Thought content: Yes Intact, No Suicidal ideation, No Homicidal ideation, No Overt delusions Perceptual disturbances: Yes Auditory hallucinations Judgment: Limited Insight: Minimal Results - Vital Signs Vital Signs: Temp Pulse Resp BP Pulse Ox 98.0 F 75 14 113/81 96 08/18/16 09:00 08/18/16 09:00 08/18/16 09:00 08/18/16 09:00 08/14/16 23:39 - Labs Labs: Laboratory Results - last 24 hr 08/17/16 08/18/16 19:44 08:15 POC Glucose 109 H 99 H Assessment and Plan (1) Auditory hallucinations Current visit: Yes Status: Resolved Plan: Continue hospitalization, Close observation, Encourage participation in unit milieu Risks, benefits, side effects, alternatives discussed w/pt: Yes Patient agreeable to treatment: Yes (2) Depression Current visit: Yes Status: Chronic Plan: Continue hospitalization, Close observation, Encourage participation in unit milieu Qualifiers: Depression Type: major depressive disorder Active/Remission status: in partial remission Consult Discharge Plan - Plan Referrals: NO,PCP [Primary Care Provider] -
--- NOTE | 2016-08-18 15:55 | Psychiatry Progress Note ---
Date of Encounter: 08/18/16 Time of Encounter: 15:00 Subjective Interval history: Patient was seen for follow-up and reports by nursing staff that she is less confused she is more interactive and participating in unit activities compliant was his mood was her medication her discharge plans are ongoing T search was elevated and patient admits to missing her medication on and off she denies any problems and she believes that she is feeling better and not depressed and anxious to be discharged. Review of Systems Psychiatric: Reports: depression, anxiety, mood swings. Denies: confusion, difficulty concentrating, hopelessness Objective: Exam Patient orientation: Yes Person, Yes Time, Yes Place Level of alertness: Alert Patient appearance: Well Groomed, Disheveled Behavior: cooperative, nervous, anxious, dramatic Psychomotor activity: Normal Eye contact: Maintains Eye Contact Mood description: Euthymic/stable, Anxious Affect description: congruent with mood, euthymic, anxious Speech pattern: Normal rate, Normal rhythm, Normal tone, Coherent Speech volume: Normal Thought process: Logical, Goal Oriented, Circumstantial Thought content: Yes Intact, No Suicidal ideation, No Homicidal ideation, No Overt delusions Perceptual disturbances: No Auditory hallucinations Judgment: Good Insight: Partial Results - Vital Signs Vital Signs: Temp Pulse Resp BP Pulse Ox 98.0 F 75 14 113/81 96 08/18/16 09:00 08/18/16 09:00 08/18/16 09:00 08/18/16 09:00 08/14/16 23:39 - Labs Labs: Laboratory Results - last 24 hr 08/17/16 08/18/16 19:44 08:15 POC Glucose 109 H 99 H Assessment and Plan (1) Auditory hallucinations Current visit: Yes Status: Resolved Plan: Continue hospitalization, Close observation, Encourage participation in unit milieu Risks, benefits, side effects, alternatives discussed w/pt: Yes Patient agreeable to treatment: Yes (2) Depression Current visit: Yes Status: Chronic Plan: Continue hospitalization, Close observation, Encourage participation in unit milieu Qualifiers: Depression Type: major depressive disorder Active/Remission status: in partial remission Consult Discharge Plan - Plan Referrals: Akil Ghotra [facility] Darrion Whitney [Outside] - 08/20/16 3:00 pm (The above appointment is with Ashley Ortega, psychiatric prescriber.) Darío Reinoso [Outside] - 09/01/16 1:30 pm (Kane samano appointment is with Arlene Perry for counseling.)
[2016-08-18] MEDS: traZODone 50 MG TABLET PO PRN (21:10)
[2016-08-19] MEDS: hydrOXYzine pamoate 25 MG CAPSULE PO PRN (00:09)
[2016-08-19] MEDS: Budesonide/Formoterol 80/4.5 MDI IH SCH (09:02)
[2016-08-19] MEDS: Ziprasidone 20 MG CAPSULE PO SCH (09:03)
[2016-08-19] MEDS: Aspirin Enteric Coated 81 MG Tablet PO SCH (09:03)
[2016-08-19] MEDS: Topiramate 100 MG TABLET PO SCH (09:04)
[2016-08-19] MEDS: *HR* SitaGLIPtin 100 MG TABLET PO SCH (09:04)
[2016-08-19 09:09] VITALS: BP 116/80
[2016-08-19] MEDS: Nicotine 21 MG PATCH.TD24 TD SCH (09:09)
--- NOTE | 2016-08-19 11:16 | Discharge Summary ---
Date of Encounter: 08/19/16 Time of Encounter: 11:10 Diagnosis - Discharge Diagnosis (1) Auditory hallucinations Status: Resolved (2) Depression Status: Chronic Qualifiers: Depression Type: major depressive disorder Major depression recurrence: recurrent Active/Remission status: in partial remission Qualified Code(s): F33.41 - Major depressive disorder, recurrent, in partial remission Medications - Discharge Medications Prescriptions: Ziprasidone [Geodon] 40 mg PO BID #60 capsule Albuterol Sulfate [Albuterol Inhaler] 1 - 2 puff IH Q6HR PRN 07/09/16 [History] Aspirin [Lo-Dose Aspirin EC] 81 mg PO DAILY 07/09/16 [History] Budesonide/Formoterol 80/4.5 [Symbicort 80/4.5] 2 puff IH BID 07/09/16 [History ] Escitalopram [Lexapro] 30 mg PO DAILY 07/09/16 [History] Hydroxychloroquine [Plaquenuil] 200 mg PO BID 07/09/16 [History] Levothyroxine [Synthroid] 50 mcg PO DAILY 07/09/16 [History] SitaGLIPtin [Januvia] 100 mg PO DAILY 07/09/16 [History] Topiramate [Topamax] 100 mg PO QAM 07/09/16 [History] Topiramate [Topamax] 200 mg PO HS 07/09/16 [History] TraZODone 50 mg PO HS PRN #30 tablet 07/15/16 [Rx] OxyCODONE Immed Rel [Roxicodone 5 MG] 5 mg PO Q6HR PRN 08/04/16 [History] Atorvastatin [Lipitor] 40 mg PO HS #60 tablet 08/07/16 [Rx] Omeprazole [PriLOSEC] 20 mg PO DAILY #20 cap 08/07/16 [Rx] Ziprasidone [Geodon] 40 mg PO BID #60 capsule 08/19/16 [Rx] Allergies carbamazepine [From Tegretol] Allergy (Verified 08/11/16 20:11) See Comments UNABLE TO VERIFY REACTION- NOT LISTED ON PATIENT'S ECW LAST APPT. AND PATIENT UNABLE TO CONFIRM- ALL ALLERGIES/REACTIONS OBTAINED FROM PATIENT'S PCP: DR. VELEZ divangelproex sodium [From Depakote] Allergy (Verified 08/11/16 20:11) See Comments UNABLE TO VERIFY REACTION- NOT LISTED ON PATIENT'S ECW LAST APPT. AND PATIENT UNABLE TO CONFIRM- ALL ALLERGIES/REACTIONS OBTAINED FROM PATIENT'S PCP: DR. VELEZ [place] Allergy (Verified 08/11/16 20:11) See Comments UNABLE TO VERIFY REACTION- NOT LISTED ON PATIENT'S ECW LAST APPT. AND PATIENT UNABLE TO CONFIRM- ALL ALLERGIES/REACTIONS OBTAINED FROM PATIENT'S PCP: DR. VELEZ meloxicam [From Mobic] Allergy (Verified 08/11/16 20:11) See Comments UNABLE TO VERIFY REACTION- NOT LISTED ON PATIENT'S ECW LAST APPT. AND PATIENT UNABLE TO CONFIRM- ALL ALLERGIES/REACTIONS OBTAINED FROM PATIENT'S PCP: DR. VELEZ phenytoin [From Dilantin] Allergy (Verified 08/11/16 20:11) See Comments UNABLE TO VERIFY REACTION- NOT LISTED ON PATIENT'S ECW LAST APPT. AND PATIENT UNABLE TO CONFIRM- ALL ALLERGIES/REACTIONS OBTAINED FROM PATIENT'S PCP: DR. VELEZ tramadol [From Ultram] Allergy (Verified 08/11/16 20:11) See Comments UNABLE TO VERIFY REACTION- NOT LISTED ON PATIENT'S ECW LAST APPT. AND PATIENT UNABLE TO CONFIRM- ALL ALLERGIES/REACTIONS OBTAINED FROM PATIENT'S PCP: DR. VELEZ methocarbamol [From Robaxin] Adverse Reaction (Verified 08/11/16 20:11) Dizziness NSAIDS (Non-Steroidal Anti-Inflamma Adverse Reaction (Verified 08/11/16 20:11) See Comments ELEVATED LIVER ENZYMES Provider Date of admission: 08/15/16 02:23 Primary care physician: PCP NO Discharging clinician: Kameron Navas Assessment and Plan - Patient/Caregiver Discharge Instructions Activity: resume usual activities as tolerated Diet: regular diet - Follow up Plan Follow up with: Akil Ghotra [facility] Darrion Whitney [Outside] - 08/20/16 3:00 pm (The above appointment is with Ashley Ortega, psychiatric prescriber.) Darío Reinoso [Outside] - 09/01/16 1:30 pm (Kane samano appointment is with Arlene Perry for counseling.) Overall status at discharge: Stable Disposition: Home, Self-Care Hospital Course Hospital course: Ms. Ash is a 51 year old female with long history of bipolar disorder presented to the emergency department complaining of auditory hallucinations also has been noncompliant with medication. On admission patient medication was restarted including Geodon Topamax and Lexapro she responded well to medication she was reported to have clear mental status Discharge she was reported prior to this as feeling confused and with "foggy. Prior to discharge she denied any hallucination denied any suicidal ideation she was educated about compliance with medication also it was noted that her TSH was elevated most likely due to noncompliance with her medication this was brought to her attention and she was encouraged to maintain her medication as prescribed. - Time Spent with Patient Total time spent providing and/or coordinating discharge services: Less than 30 minutes Quality - Multiple Antipsychotics Patient discharged on 2 or more antipsychotic medications: No Procedures - Procedures Procedures: Medication Management, Crisis Stabilization, Supportive Therapy, Group Therapy, Psychoeducational Therapy Mental Status Exam - Mental Status Exam Patient orientation: Yes Person, Yes Time, Yes Place Level of alertness: Alert Patient appearance: Well Groomed, Disheveled Behavior: cooperative, nervous, anxious, dramatic Psychomotor activity: Normal Eye contact: Maintains Eye Contact Mood description: Euthymic/stable, Anxious Affect description: congruent with mood, euthymic, anxious Speech pattern: Normal rate, Normal rhythm, Normal tone, Coherent Speech Volume: Normal Thought process: Logical, Goal Oriented, Circumstantial Thought Content: Yes Intact, No Suicidal ideation, No Homicidal ideation, No Overt delusions Perceptual Disturbances: No Auditory hallucinations Judgment: Good Insight: Partial
--- NOTE | 2016-08-19 13:16 | Physician Discharge Referral ---
Home Health/Hosp Referral Info Transfer to: Home Health Attending Provider: BRANDY Provider in Charge Post Discharge: PCP - Diagnosis (1) Auditory hallucinations Priority: Primary Status: Resolved (2) Depression Priority: Secondary Status: Chronic - Respiratory Orders Smoking Cessation: Smoking cessation has been advised. For more information, call the [place] Tobacco Quit Line at 6-623-TFPP-NOW. - Diet/Nutrition Diet/Nutrition Orders: Regular - Activity Activity Orders: Up ad sol - Services Needed Following services are medically necessary services: Nursing, Home Health Aide - Transfer Medications Prescriptions: Ziprasidone [Geodon] 40 mg PO BID #60 capsule Home Medications: Albuterol Sulfate [Albuterol Inhaler] 1 - 2 puff IH Q6HR PRN 07/09/16 [History] Aspirin [Lo-Dose Aspirin EC] 81 mg PO DAILY 07/09/16 [History] Budesonide/Formoterol 80/4.5 [Symbicort 80/4.5] 2 puff IH BID 07/09/16 [History ] Escitalopram [Lexapro] 30 mg PO DAILY 07/09/16 [History] Hydroxychloroquine [Plaquenuil] 200 mg PO BID 07/09/16 [History] Levothyroxine [Synthroid] 50 mcg PO DAILY 07/09/16 [History] SitaGLIPtin [Januvia] 100 mg PO DAILY 07/09/16 [History] Topiramate [Topamax] 100 mg PO QAM 07/09/16 [History] Topiramate [Topamax] 200 mg PO HS 07/09/16 [History] TraZODone 50 mg PO HS PRN #30 tablet 07/15/16 [Rx] OxyCODONE Immed Rel [Roxicodone 5 MG] 5 mg PO Q6HR PRN 08/04/16 [History] Atorvastatin [Lipitor] 40 mg PO HS #60 tablet 08/07/16 [Rx] Omeprazole [PriLOSEC] 20 mg PO DAILY #20 cap 08/07/16 [Rx] Ziprasidone [Geodon] 40 mg PO BID #60 capsule 08/19/16 [Rx] Allergies/Adverse Reactions: Allergies carbamazepine [From Tegretol] Allergy (Verified 08/11/16 20:11) See Comments UNABLE TO VERIFY REACTION- NOT LISTED ON PATIENT'S ECW LAST APPT. AND PATIENT UNABLE TO CONFIRM- ALL ALLERGIES/REACTIONS OBTAINED FROM PATIENT'S PCP: DR. VELEZ divalproex sodium [From Depakote] Allergy (Verified 08/11/16 20:11) See Comments UNABLE TO VERIFY REACTION- NOT LISTED ON PATIENT'S ECW LAST APPT. AND PATIENT UNABLE TO CONFIRM- ALL ALLERGIES/REACTIONS OBTAINED FROM PATIENT'S PCP: DR. VELEZ [place] Allergy (Verified 08/11/16 20:11) See Comments UNABLE TO VERIFY REACTION- NOT LISTED ON PATIENT'S ECW LAST APPT. AND PATIENT UNABLE TO CONFIRM- ALL ALLERGIES/REACTIONS OBTAINED FROM PATIENT'S PCP: DR. VELEZ meloxicam [From Mobic] Allergy (Verified 08/11/16 20:11) See Comments UNABLE TO VERIFY REACTION- NOT LISTED ON PATIENT'S ECW LAST APPT. AND PATIENT UNABLE TO CONFIRM- ALL ALLERGIES/REACTIONS OBTAINED FROM PATIENT'S PCP: DR. VELEZ phenytoin [From Dilantin] Allergy (Verified 08/11/16 20:11) See Comments UNABLE TO VERIFY REACTION- NOT LISTED ON PATIENT'S ECW LAST APPT. AND PATIENT UNABLE TO CONFIRM- ALL ALLERGIES/REACTIONS OBTAINED FROM PATIENT'S PCP: DR. VELEZ tramadol [From Ultram] Allergy (Verified 08/11/16 20:11) See Comments UNABLE TO VERIFY REACTION- NOT LISTED ON PATIENT'S ECW LAST APPT. AND PATIENT UNABLE TO CONFIRM- ALL ALLERGIES/REACTIONS OBTAINED FROM PATIENT'S PCP: DR. VELEZ methocarbamol [From Robaxin] Adverse Reaction (Verified 08/11/16 20:11) Dizziness NSAIDS (Non-Steroidal Anti-Inflamma Adverse Reaction (Verified 08/11/16 20:11) See Comments ELEVATED LIVER ENZYMES Certification: Further, I certify that my clinical findings support that this patient is homebound (i.e. absences from home require considerable and taxing effort and are for medical reasons or jewish services or infrequently or short duration when for other reasons) because: Homebound Reason: Altered mental status requiring supervision when leaving home Attestation: My signature below is to certify that this patient is under my care and that I, or nurse practitioner, or a physician's doctor's assistant working with me, has a face-to -face encounter with this patient.
== END 2016-08-19 13:00 | disposition home or self-care (01) | DRG 885 ==
LOC: 1ANU 17:46 → EMEROO 17:46 → 1ANU 08-15 → SUATTDRO 08-15 02:23
PROVIDERS: ADMIT Psychiatry & Neurology Psychiatry; ATTEND Psychiatry & Neurology Psychiatry

== ENCOUNTER 2017-01-06 12:27 | Inpatient (IN) ==
--- NOTE | 2017-01-06 12:42 | Emergency Department Note ---
Disposition Clinical Impression: Suicidal ideation Depression Qualifiers: Depression Type: unspecified Qualified Code(s): F32.9 - Major depressive disorder, single episode, unspecified Disposition: Admitted As Inpatient Condition: Fair Referrals: NO,PCP [Primary Care Provider] - Forms: ED Satisfaction Letter Time of Disposition: 15:52 Psych HPI - General Chief Complaint: ED Psychiatric Symptoms Stated Complaint: "not taking meds, gonna hurt self" Time Seen by Provider: 01/06/17 12:36 Source: patient Mode of arrival: ambulatory Nursing Notes Reviewed: Yes Vital Signs Reviewed: Yes - History of Present Illness HPI Narrative: 51-year-old who has a history of depression and schizophrenia who comes in stating she's not been taking her medicines. Patient is tearful states she is confused on her medicines as they've been changed multiple times. The patient states that she feels suicidal and feels like she wants to cut her wrist. Pt complaint: suicidal ideation, feels depressed If medical clearance, reason: psychiatric condition Onset (ago): Just [employer] Duration: constant History of similar episodes: Yes Improves with: none Worsens with: none Context: significant life stressor Alleged intoxication: No Associated Psychiatric Symptoms: depression, suicidal ideation Treatments prior to arrival: none - Related Data Home Medications Medication Instructions Recorded Confirmed Albuterol Sulfate [Albuterol 2 puff IH Q6HR PRN 07/09/16 01/06/17 Inhaler] Aspirin [Lo-Dose Aspirin EC] 81 mg PO DAILY 07/09/16 01/06/17 Hydroxychloroquine [Plaquenuil] 200 mg PO BID 07/09/16 01/06/17 Levothyroxine [Synthroid] 50 mcg PO QAM 07/09/16 01/06/17 SitaGLIPtin [Januvia] 100 mg PO DAILY 07/09/16 01/06/17 Topiramate [Topamax] 200 mg PO DAILY 07/09/16 01/06/17 Ergocalciferol (VITAMIN D2) 50,000 unit PO QWEEK 01/06/17 01/06/17 [Vitamin D2] FLUoxetine HCl [Prozac] 40 mg PO QAM 01/06/17 01/06/17 Quetiapine Fumarate [SEROquel] 25 mg PO HS 01/06/17 01/06/17 Trazodone HCl 100 mg PO HS 01/06/17 01/06/17 Ziprasidone HCl [Geodon] 80 mg PO BID 01/06/17 01/06/17 lamoTRIgine [Lamictal] 25 mg PO DAILY 01/06/17 01/06/17 Previous Rx's Medication Instructions Recorded Atorvastatin [Lipitor] 40 mg PO HS #60 tablet 08/07/16 Allergies Allergy/AdvReac Type Severity Reaction Status Date / Time carbamazepine [From Tegretol] Allergy See Verified 08/11/16 20:11 Comments divalproex sodium Allergy See Verified 08/11/16 20:11 [From Depakote] Comments [place] Allergy See Verified 08/11/16 20:11 Comments meloxicam [From Mobic] Allergy See Verified 08/11/16 20:11 Comments phenytoin [From Dilantin] Allergy See Verified 08/11/16 20:11 Comments tramadol [From Ultram] Allergy See Verified 08/11/16 20:11 Comments methocarbamol [From Robaxin] AdvReac Dizziness Verified 08/11/16 20:11 NSAIDS (Non-Steroidal AdvReac See Verified 08/11/16 20:11 Anti-Inflamma Comments Constitutional: Denies: fever, chills, weakness, weight change Eyes: Denies: eye pain, eye discharge, vision change ENT ED: Denies: ear pain, throat pain, dental pain, hearing loss, epistaxis, congestion, dysphagia Cardiovascular: Denies: chest pain, palpitations, dyspnea on exertion, edema, syncope Respiratory: Denies: cough, dyspnea, wheezes, hemoptysis, stridor Gastrointestinal: Denies: abdominal pain, nausea, vomiting, diarrhea, constipation, hematemesis, melena, hematochezia Genitourinary: Denies: dysuria, frequency, hematuria, discharge Musculoskeletal: Denies: back pain, neck pain, arthralgia, myalgia Integumentary: Denies: rash, abrasion, lesions Neurological: Denies: headache, weakness, numbness, paresthesias, confusion, abnormal gait, vertigo Psychiatric: Reports: depression, suicidal thoughts. Denies: anxiety, homicidal thoughts, auditory hallucinations, visual hallucinations Endocrine: Denies: fatigue Hematological/Lymphatic: Denies: easy bleeding, easy bruising Allergic/Immunologic: Denies: facial swelling, urticaria Past Medical History - Past Medical History Medical history: Reports: arthritis, asthma, COPD, coronary artery disease, diabetes, fibromyalgia, GERD, hyperlipidemia, hypertension, kidney stones, migraine, osteoporosis, RA, thyroid disease, TIA, other Surgical history: Reports: appendectomy, hysterectomy, orthopedic, other, sinus surgery, VIKI/BSO, other Psychiatric history: Reports: anxiety, bipolar, depression, previous psychiatric hospitalization - Social History Smoking Status: Former smoker Smokeless Tobacco Status: No Alcohol use: Reports: none Drug use: Reports: none Physical Exam - General Limitations: no limitations General appearance: alert, in no apparent distress - Head Head exam: atraumatic, normocephalic, normal inspection - Eye Eye exam: Present: normal appearance, PERRL, EOMI - ENT ENT exam: normal exam, normal oropharynx, mucous membranes moist - Neck Neck exam: Present: normal inspection, full ROM, trachea midline - Chest Chest inspection: Present: normal inspection, symmetric chest wall rise - Respiratory Respiratory exam: Present: normal lung sounds bilaterally - Cardiovascular Cardiovascular exam: Present: regular rate, normal rhythm, normal heart sounds - Abdominal Exam Abdominal exam: Present: soft, Non-Tender. Absent: tenderness, distention, guarding, rebound, rigidity - Extremities Exam Extremities exam: Present: normal inspection, full ROM. Absent: tenderness, pedal edema - Expanded Lower Extremity Exam Neurovascular/Tendon exam: Absent: motor deficit, sensory deficit, tendon deficit Gait: observed and normal - Back Exam Back exam: Present: normal inspection, full ROM. Absent: tenderness - Neurological Exam Neurological exam: Present: alert, oriented X3 - Psychiatric Psychiatric exam: Present: depressed - Skin Skin exam: Present: warm, dry, intact, normal color Course - Reevaluation(s) Reevaluation #1: The patient is much calmer now her heart rate is 88, BP 140/78 Time: 15:50 Reevaluation #2: Patient complains of right sided chest pain that is tender at the junction of the ribs in the sternum. We did obtain an EKG that shows some T-wave inversion anteriorly however previous EKG done on 12/13/2016 showed similar findings. Clinically she does not appear that this is related to cardiac disease that she is tender it's right side at the joint of the rib and sternum. Time: 17:09 - Consultations Consultation #1: Discussed with1A ,admit. Time: 15:50 Vital Signs Temperature 97.9 F 01/06/17 12:32 Pulse Rate 120 01/06/17 12:32 Respiratory Rate 22 01/06/17 12:32 Blood Pressure 165/118 01/06/17 12:32 O2 Sat by Pulse Oximetry 96 01/06/17 12:32 Temperature 97.9 F 01/06/17 12:32 Pulse Rate 99 01/06/17 16:00 Respiratory Rate 18 01/06/17 16:00 Blood Pressure 106/72 01/06/17 16:00 O2 Sat by Pulse Oximetry 96 01/06/17 16:00 Oxygen Delivery Oxygen Delivery Room Air Psych - Lab Data Result diagrams: 01/06/17 12:52 01/06/17 12:52 Lab Results 01/06/17 01/06/17 01/06/17 Range/Units 12:52 12:52 12:55 WBC 8.4 (4.3-11.1) K/mcL RBC 5.24 H (3.82-4.97) M/mcL Hgb 16.0 H (11.5-15.4) g/dL Hct 46.8 H (35.3-44.9) % MCV 89.3 (83.0-100.0) fL MCH 30.5 (28.0-33.3) pg MCHC 34.2 (31.6-35.5) g/dL RDW 13.0 (11.5-14.5) % Plt Count 344 (140-400) K/mcL MPV 8.1 L (9.4-12.4) fL Immature Gran % 0.4 (0-4) % Seg Neutrophils % 61.2 % Lymphocytes % 28.9 % Monocytes % 8.5 % Eosinophils % 0.4 % Basophils % 0.6 % Neutrophils # 5.2 (1.6-8.9) K/mcL Lymphocytes # 2.4 (0.6-4.6) K/mcL Monocytes # 0.7 (0.0-1.3) K/mcL Eosinophils # 0.0 (0.0-0.6) K/mcL Basophils # 0.1 (0.0-0.2) K/mcL Sodium 140 (136-145) mEq/L Potassium 3.6 (3.5-4.5) mEq/L Chloride 104 (98-109) mEq/L Carbon Dioxide 23 (19-29) mEq/L BUN 8 (7-20) mg/dL Creatinine 0.72 (0.57-1.11) mg/dL Est GFR ( Amer) > 60 (> 60) Est GFR (Non-Af Amer) > 60 (> 60) BUN/Creatinine Ratio 11 (6-26) Glucose 96 (70-99) mg/dL Calculated Osmolality 288 (280-300) Calcium 9.7 (8.6-10.8) mg/dL Urine Color Dark Yellow (Yellow) Urine Clarity Cloudy A (Clear) Urine pH 6.0 (5.0-8.0) pH Units Ur Specific [place] > 1.030 H (1.010-1.025) Urine Protein 30 H (Neg-Trace) mg/dL Urine Glucose (UA) Normal (Normal) mg/dL Urine Ketones >=160 H (Negative) mg/dL Urine Blood Negative (Negative) Urine Nitrite Negative (Negative) Urine Bilirubin Small H (Negative) Urine Urobilinogen Normal (Normal) mg/dL Ur Leukocyte Esterase Negative (Negative) Urine Microscopic WBC 3-5 H (0-3) per hpf Ur Squamous Epith Cells Moderate H (None-Few) per lpf Urine Bacteria Few (None-Few) per hpf Urine Mucus Moderate H (Few) Urine Test (Negative) Salicylates < 5.0 L (15-30) mg/dL Urine Opiates Screen (Oihcrr=915) ng/mL Acetaminophen < 1.0 L (10-30) mcg/mL Ur Barbiturates Screen (Xwmmmq=244) ng/mL Ur Phencyclidine Scrn (Cutoff=25) ng/mL Ur Amphetamines Screen (Alryie=7437) ng/mL U Benzodiazepines Scrn (Xfhgbj=371) ng/mL Urine Cocaine Screen (Cutoff= 300) ng/mL U Marijuana (THC) Screen (Cutoff = 50) ng/mL Ethyl Alcohol < 10 (0-10) mg/dL 01/06/17 01/06/17 Range/Units 12:55 12:55 WBC (4.3-11.1) K/mcL RBC (3.82-4.97) M/mcL Hgb (11.5-15.4) g/dL Hct (35.3-44.9) % MCV (83.0-100.0) fL MCH (28.0-33.3) pg MCHC (31.6-35.5) g/dL RDW (11.5-14.5) % Plt Count (140-400) K/mcL MPV (9.4-12.4) fL Immature Gran % (0-4) % Seg Neutrophils % % Lymphocytes % % Monocytes % % Eosinophils % % Basophils % % Neutrophils # (1.6-8.9) K/mcL Lymphocytes # (0.6-4.6) K/mcL Monocytes # (0.0-1.3) K/mcL Eosinophils # (0.0-0.6) K/mcL Basophils # (0.0-0.2) K/mcL Sodium (136-145) mEq/L Potassium (3.5-4.5) mEq/L Chloride (98-109) mEq/L Carbon Dioxide (19-29) mEq/L BUN (7-20) mg/dL Creatinine (0.57-1.11) mg/dL Est GFR ( Amer) (> 60) Est GFR (Non-Af Amer) (> 60) BUN/Creatinine Ratio (6-26) Glucose (70-99) mg/dL Calculated Osmolality (280-300) Calcium (8.6-10.8) mg/dL Urine Color (Yellow) Urine Clarity (Clear) Urine pH (5.0-8.0) pH Units Ur Specific [place] (1.010-1.025) Urine Protein (Neg-Trace) mg/dL Urine Glucose (UA) (Normal) mg/dL Urine Ketones (Negative) mg/dL Urine Blood (Negative) Urine Nitrite (Negative) Urine Bilirubin (Negative) Urine Urobilinogen (Normal) mg/dL Ur Leukocyte Esterase (Negative) Urine Microscopic WBC (0-3) per hpf Ur Squamous Epith Cells (None-Few) per lpf Urine Bacteria (None-Few) per hpf Urine Mucus (Few) Urine Test Negative (Negative) Salicylates (15-30) mg/dL Urine Opiates Screen Negative (Sdntmt=492) ng/mL Acetaminophen (10-30) mcg/mL Ur Barbiturates Screen Negative (Hdneat=377) ng/mL Ur Phencyclidine Scrn Negative (Cutoff=25) ng/mL Ur Amphetamines Screen Negative (Hnwjfe=2452) ng/mL U Benzodiazepines Scrn Negative (Axcxta=083) ng/mL Urine Cocaine Screen Negative (Cutoff= 300) ng/mL U Marijuana (THC) Screen Negative (Cutoff = 50) ng/mL Ethyl Alcohol (0-10) mg/dL Psychiatric Medical Clearance - Medical Clearance Checklist Does the patient have a NEW psychiatric condition?: No Any abnormalities indicating possible medical illness?: No Any history of medical issues?: No Medical History: No Social History Section defined Any abnormal vital signs prior to transfer?: No Current Vitals: Last Vital Signs Temp 97.9 F 01/06/17 12:32 Pulse 99 01/06/17 16:00 Resp 18 01/06/17 16:00 BP 106/72 01/06/17 16:00 Pulse Ox 96 01/06/17 16:00 Is the patient intoxicated or cognitively impaired?: No Psychiatric Lab Panel: Drug Levels and Toxicity 01/06/17 01/06/17 12:52 12:55 Urine Opiates Screen Negative Acetaminophen < 1.0 L Ur Barbiturates Screen Negative Ur Phencyclidine Scrn Negative Ur Amphetamines Screen Negative U Benzodiazepines Scrn Negative Urine Cocaine Screen Negative U Marijuana (THC) Screen Negative Ethyl Alcohol < 10 Any abnormalities on the physical exam?: No Any abnormal labs?: No Abnormal Labs: Abnormal lab results RBC 5.24 M/mcL (3.82-4.97) H 01/06/17 12:52 Hgb 16.0 g/dL (11.5-15.4) H 01/06/17 12:52 Hct 46.8 % (35.3-44.9) H 01/06/17 12:52 MPV 8.1 fL (9.4-12.4) L 01/06/17 12:52 Urine Clarity Cloudy (Clear) A 01/06/17 12:55 Ur Specific [place] > 1.030 (1.010-1.025) H 01/06/17 12:55 Urine Protein 30 mg/dL (Neg-Trace) H 01/06/17 12:55 Urine Ketones >=160 mg/dL (Negative) H 01/06/17 12:55 Urine Bilirubin Small (Negative) H 01/06/17 12:55 Urine Microscopic WBC 3-5 per hpf (0-3) H 01/06/17 12:55 Ur Squamous Epith Cells Moderate per lpf (None-Few) H 01/06/17 12:55 Urine Mucus Moderate (Few) H 01/06/17 12:55 Salicylates < 5.0 mg/dL (15-30) L 01/06/17 12:52 Acetaminophen < 1.0 mcg/mL (10-30) L 01/06/17 12:52 Does the patient require durable medical equiptment?: No Is the patient ambulatory?: Yes Is the patient a fall risk?: No Has the patient been medically cleared?: Yes Any acute medical condition require Tx prior to transfer?: No Statement of Medical Clearance: I have evaluated the patient, reviewed diagnostic information, and certify that the patient's medical condition is sufficiently stable that transfer to the psychiatric unit does not pose a significant risk of deterioration.
[2017-01-06 13:02] LABS: Basophils # 0.1 K/mcL (0.0-0.2); Basophils % 0.6 %; Eosinophils % 0.4 %; Hematocrit 46.8 % (35.3-44.9); Immature Granulocytes % 0.4 % (0-4); Lymphocytes # 2.4 K/mcL (0.6-4.6); Lymphocytes % 28.9 %; Mean Corpuscular HGB Conc 34.2 g/dL (31.6-35.5); Mean Corpuscular Hemoglobin 30.5 pg (28.0-33.3); Mean Corpuscular Volume 89.3 fL (83.0-100.0); Mean Platelet Volume 8.1 fL (9.4-12.4); Monocytes # 0.7 K/mcL (0.0-1.3); Monocytes % 8.5 %; Neutrophils # 5.2 K/mcL (1.6-8.9); Platelet Count 344 K/mcL (140-400); Red Blood Count 5.24 M/mcL (3.82-4.97); Segmented Neutrophils % 61.2 %
[2017-01-06 13:09] LABS: Bilirubin,Urine Small (Negative); Blood,Urine Negative (Negative); Clarity,Urine Cloudy (Clear); Color,Urine Dark Yellow (Yellow); Glucose,Urine (UA) Normal (Normal); Ketones,Urine >=160 mg/dL (Negative); Leukocyte Esterase,Urine Negative (Negative); Nitrite,Urine Negative (Negative); Protein,Urine 30 mg/dL (Neg-Trace); Specific Gravity,Urine > 1.030 (1.010-1.025); Urobilinogen,Urine Normal (Normal)
[2017-01-06 13:13] LABS: Amphetamine Screen,Urine Negative ng/mL (Cutoff=1000); Barbiturate Screen,Urine Negative ng/mL (Cutoff=200); Benzodiazepines Screen,Urine Negative ng/mL (Cutoff=200); Cannabinoid Screen,Urine Negative ng/mL (Cutoff = 50); Cocaine Screen,Urine Negative ng/mL (Cutoff= 300); Opiate Screen,Urine Negative ng/mL (Cutoff=300); Phencyclidine Screen,Urine Negative ng/mL (Cutoff=25)
[2017-01-06 13:19] LABS: Bacteria,Urine Few per hpf (None-Few); Mucus,Urine Moderate (Few); Squamous Epithelial Cell,Urine Moderate per lpf (None-Few)
[2017-01-06 13:19] LABS: Acetaminophen < 1.0 mcg/mL (10-30); BUN/Creatinine Ratio 11 (6-26); Blood Urea Nitrogen 8 mg/dL (7-20); Calcium 9.7 mg/dL (8.6-10.8); Carbon Dioxide 23 mEq/L (19-29); Chloride 104 mEq/L (98-109); Ethanol < 10 mg/dL (0-10); Glucose 96 mg/dL (70-99); Osmolality,Calculated 288 (280-300); Potassium 3.6 mEq/L (3.5-4.5); Salicylate < 5.0 mg/dL (15-30); Sodium 140 mEq/L (136-145); eGFR For African Americans > 60 (> 60); eGFR For Non-African Americans > 60 (> 60)
[2017-01-06] MEDS ORDERED: *HR* LORazepam 2 MG/ML VIAL IM PRN (17:39)
[2017-01-06] MEDS ORDERED: MOM Conc 10 ML UD.LIQ PO PRN (17:39)
[2017-01-06] MEDS ORDERED: hydrOXYzine pamoate 25 MG CAPSULE PO PRN (17:39)
[2017-01-06] MEDS ORDERED: Haloperidol Lactate 5 MG/ML VIAL IM PRN (17:39)
[2017-01-06] MEDS ORDERED: traZODone 50 MG TABLET PO PRN (17:39)
[2017-01-06] MEDS ORDERED: *HR* LORazepam 1 MG TABLET PO PRN (17:39)
[2017-01-06] MEDS: Nicotine 21 MG PATCH.TD24 TD SCH (19:03)
[2017-01-06] MEDS: Ziprasidone 80 MG CAPSULE PO SCH (21:33)
[2017-01-06] MEDS: traZODone 50 MG TABLET PO SCH (21:33)
[2017-01-06] MEDS: Ibuprofen 400 MG TABLET PO PRN (21:34)
[2017-01-07] MEDS: Ibuprofen 400 MG TABLET PO PRN ×2 (05:43→20:36)
[2017-01-07] MEDS: *HR* SitaGLIPtin 100 MG TABLET PO SCH (09:01)
[2017-01-07] MEDS: Ziprasidone 80 MG CAPSULE PO SCH ×2 (09:02→20:36)
[2017-01-07] MEDS: lamoTRIgine 25 MG TABLET PO SCH (09:02)
[2017-01-07] MEDS: Aspirin Enteric Coated 81 MG Tablet PO SCH (09:02)
[2017-01-07] MEDS: Topiramate 100 MG TABLET PO SCH (09:02)
[2017-01-07] MEDS: FLUoxetine 20 MG CAPSULE PO SCH (09:03)
[2017-01-07] MEDS: Nicotine 21 MG PATCH.TD24 TD SCH (09:04)
[2017-01-07] MEDS: Mag Hydrox/Al Hydrox/Simeth 30 ML UDC PO PRN (10:00)
--- NOTE | 2017-01-07 10:57 | Psychiatry History & Physical ---
Date of Encounter: 01/07/17 Time of Encounter: 10:45 History of Present Illness Patient Stated Chief Complaint: Suicidal ideation and auditory hallucination Medicare Admission Attestation: For traditional Medicare patients the provided hospital inpatient services are reasonable and necessary and in the case of services not specified as inpatient -only under 42 CFR 419.22 (n), that they are appropriately provided as inpatient services in accordance 42 CFR 412.3. For Critical [facility] the patient may reasonably be expected to be discharged or transferred to a hospital within 96 hours after admission to the Critical Access Hospital. Admitted From: Emergency Dept History of Present Illness: Ms. Ash is a 51 year old female admitted from the emergency department for suicidal ideation and auditory hallucinations and paranoia. Patient had long history of bipolar disorder and psychosis and has been off her medication for over a month she experienced auditory hallucination and paranoid delusions and suicidal ideation. Patient has been hospitalized several times in the past most recently in August 2016 with similar presentation. She is followed up as outpatient at [facility]. She reports feeling fearful and confused and came to the hospital to be safe. Past Med Surg Social Fam HX - Past Medical History Medical history: arthritis, asthma, COPD, coronary artery disease, diabetes, fibromyalgia, GERD, hyperlipidemia, hypertension, kidney stones, migraine, osteoporosis, RA, thyroid disease, TIA, other - Past Psychiatric History Psychiatric history: Reports: bipolar, depression, schizophrenia, previous psychiatric hospitalization Past psychiatric history details: Recent pop recent hospitalization in August 2016 - Past Surgical History Surgical History: appendectomy, hysterectomy, orthopedic, other, sinus surgery, VIKI/BSO, other - Social History Smoking Status: Former smoker Smokeless Tobacco Status: No Alcohol use: none Drug use: none Medications & Allergies Albuterol Sulfate [Albuterol Inhaler] 2 puff IH Q6HR PRN 07/09/16 [History] Aspirin [Lo-Dose Aspirin EC] 81 mg PO DAILY 07/09/16 [History] Hydroxychloroquine [Plaquenuil] 200 mg PO BID 07/09/16 [History] Levothyroxine [Synthroid] 50 mcg PO QAM 07/09/16 [History] SitaGLIPtin [Januvia] 100 mg PO DAILY 07/09/16 [History] Topiramate [Topamax] 200 mg PO DAILY 07/09/16 [History] Atorvastatin [Lipitor] 40 mg PO HS #60 tablet 08/07/16 [Rx] Ergocalciferol (VITAMIN D2) [Vitamin D2] 50,000 unit PO QWEEK 01/06/17 [History] FLUoxetine HCl [Prozac] 40 mg PO QAM 01/06/17 [History] Quetiapine Fumarate [SEROquel] 25 mg PO HS 01/06/17 [History] Trazodone HCl 100 mg PO HS 01/06/17 [History] Ziprasidone HCl [Geodon] 80 mg PO BID 01/06/17 [History] lamoTRIgine [Lamictal] 25 mg PO DAILY 01/06/17 [History] Allergies carbamazepine [From Tegretol] Allergy (Verified 08/11/16 20:11) See Comments UNABLE TO VERIFY REACTION- NOT LISTED ON PATIENT'S ECW LAST APPT. AND PATIENT UNABLE TO CONFIRM- ALL ALLERGIES/REACTIONS OBTAINED FROM PATIENT'S PCP: DR. VELEZ divalproex sodium [From Depakote] Allergy (Verified 08/11/16 20:11) See Comments UNABLE TO VERIFY REACTION- NOT LISTED ON PATIENT'S ECW LAST APPT. AND PATIENT UNABLE TO CONFIRM- ALL ALLERGIES/REACTIONS OBTAINED FROM PATIENT'S PCP: DR. VELEZ [place] Allergy (Verified 08/11/16 20:11) See Comments UNABLE TO VERIFY REACTION- NOT LISTED ON PATIENT'S ECW LAST APPT. AND PATIENT UNABLE TO CONFIRM- ALL ALLERGIES/REACTIONS OBTAINED FROM PATIENT'S PCP: DR. VELEZ meloxicam [From Mobic] Allergy (Verified 08/11/16 20:11) See Comments UNABLE TO VERIFY REACTION- NOT LISTED ON PATIENT'S ECW LAST APPT. AND PATIENT UNABLE TO CONFIRM- ALL ALLERGIES/REACTIONS OBTAINED FROM PATIENT'S PCP: DR. VELEZ phenytoin [From Dilantin] Allergy (Verified 08/11/16 20:11) See Comments UNABLE TO VERIFY REACTION- NOT LISTED ON PATIENT'S ECW LAST APPT. AND PATIENT UNABLE TO CONFIRM- ALL ALLERGIES/REACTIONS OBTAINED FROM PATIENT'S PCP: DR. VELEZ tramadol [From Ultram] Allergy (Verified 08/11/16 20:11) See Comments UNABLE TO VERIFY REACTION- NOT LISTED ON PATIENT'S ECW LAST APPT. AND PATIENT UNABLE TO CONFIRM- ALL ALLERGIES/REACTIONS OBTAINED FROM PATIENT'S PCP: DR. VELEZ methocarbamol [From Robaxin] Adverse Reaction (Verified 08/11/16 20:11) Dizziness NSAIDS (Non-Steroidal Anti-Inflamma Adverse Reaction (Verified 08/11/16 20:11) See Comments ELEVATED LIVER ENZYMES Review of Systems Psychiatric: Reports: abnormal sleep pattern, suicidal ideation, auditory hallucinations, confusion, mood swings Mental Status Exam Patient orientation: Yes Person, Yes Time, Yes Place Level of alertness: Alert, Sedated Patient appearance: Appropriate, Well Groomed, Unkempt, Disheveled, Bizarre Behavior: calm, cooperative, anxious, suspicious, distractible Psychomotor activity: Slowed Eye contact: Minimal Contact Mood description: Anxious Affect description: congruent with mood, constricted Speech pattern: Normal rate, Normal rhythm, Normal tone, Slowed, Delayed, Disorganized Speech volume: Normal Thought process: Tangential, Thought Blocking, Disorganized Thought content: Yes Suicidal ideation, No Homicidal ideation, No Overt delusions Perceptual disturbances: Yes Auditory hallucinations, No Visual hallucinations Attention span: Capable of Focused Attention Memory description: Grossly Intact Patient reliability: Reliable Historian Intelligence estimate: Average Judgment: Limited Insight: Partial Results - Vital Signs Vital signs: Temp Pulse Resp BP Pulse Ox 97.5 F L 103 18 130/95 96 01/07/17 09:00 01/07/17 09:00 01/07/17 09:00 01/07/17 09:00 01/06/17 16:00 - Labs Labs: Laboratory Last Values WBC 8.4 K/mcL (4.3-11.1) 01/06/17 12:52 RBC 5.24 M/mcL (3.82-4.97) H 01/06/17 12:52 Hgb 16.0 g/dL (11.5-15.4) H 01/06/17 12:52 Hct 46.8 % (35.3-44.9) H 01/06/17 12:52 MCV 89.3 fL (83.0-100.0) 01/06/17 12:52 MCH 30.5 pg (28.0-33.3) 01/06/17 12:52 MCHC 34.2 g/dL (31.6-35.5) 01/06/17 12:52 RDW 13.0 % (11.5-14.5) 01/06/17 12:52 Plt Count 344 K/mcL (140-400) 01/06/17 12:52 MPV 8.1 fL (9.4-12.4) L 01/06/17 12:52 Immature Gran % 0.4 % (0-4) 01/06/17 12:52 Seg Neutrophils % 61.2 % 01/06/17 12:52 Lymphocytes % 28.9 % 01/06/17 12:52 Monocytes % 8.5 % 01/06/17 12:52 Eosinophils % 0.4 % 01/06/17 12:52 Basophils % 0.6 % 01/06/17 12:52 Neutrophils # 5.2 K/mcL (1.6-8.9) 01/06/17 12:52 Lymphocytes # 2.4 K/mcL (0.6-4.6) 01/06/17 12:52 Monocytes # 0.7 K/mcL (0.0-1.3) 01/06/17 12:52 Eosinophils # 0.0 K/mcL (0.0-0.6) 01/06/17 12:52 Basophils # 0.1 K/mcL (0.0-0.2) 01/06/17 12:52 Sodium 140 mEq/L (136-145) 01/06/17 12:52 Potassium 3.6 mEq/L (3.5-4.5) 01/06/17 12:52 Chloride 104 mEq/L (98-109) 01/06/17 12:52 Carbon Dioxide 23 mEq/L (19-29) 01/06/17 12:52 BUN 8 mg/dL (7-20) 01/06/17 12:52 Creatinine 0.72 mg/dL (0.57-1.11) 01/06/17 12:52 Est GFR ( Amer) > 60 (> 60) 01/06/17 12:52 Est GFR (Non-Af Amer) > 60 (> 60) 01/06/17 12:52 BUN/Creatinine Ratio 11 (6-26) 01/06/17 12:52 Glucose 96 mg/dL (70-99) 01/06/17 12:52 POC Glucose 126 (58-89) H 01/07/17 08:35 Calculated Osmolality 288 (280-300) 01/06/17 12:52 Calcium 9.7 mg/dL (8.6-10.8) 01/06/17 12:52 Urine Color Dark Yellow (Yellow) 01/06/17 12:55 Urine Clarity Cloudy (Clear) A 01/06/17 12:55 Urine pH 6.0 pH Units (5.0-8.0) 01/06/17 12:55 Ur Specific [place] > 1.030 (1.010-1.025) H 01/06/17 12:55 Urine Protein 30 mg/dL (Neg-Trace) H 01/06/17 12:55 Urine Glucose (UA) Normal mg/dL (Normal) 01/06/17 12:55 Urine Ketones >=160 mg/dL (Negative) H 01/06/17 12:55 Urine Blood Negative (Negative) 01/06/17 12:55 Urine Nitrite Negative (Negative) 01/06/17 12:55 Urine Bilirubin Small (Negative) H 01/06/17 12:55 Urine Urobilinogen Normal mg/dL (Normal) 01/06/17 12:55 Ur Leukocyte Esterase Negative (Negative) 01/06/17 12:55 Urine Microscopic WBC 3-5 per hpf (0-3) H 01/06/17 12:55 Ur Squamous Epith Cells Moderate per lpf (None-Few) H 01/06/17 12:55 Urine Bacteria Few per hpf (None-Few) 01/06/17 12:55 Urine Mucus Moderate (Few) H 01/06/17 12:55 Urine Test Negative (Negative) 01/06/17 12:55 Salicylates < 5.0 mg/dL (15-30) L 01/06/17 12:52 Urine Opiates Screen Negative ng/mL (Qauifm=071) 01/06/17 12:55 Acetaminophen < 1.0 mcg/mL (10-30) L 01/06/17 12:52 Ur Barbiturates Screen Negative ng/mL (Kmaiba=325) 01/06/17 12:55 Ur Phencyclidine Scrn Negative ng/mL (Cutoff=25) 01/06/17 12:55 Ur Amphetamines Screen Negative ng/mL (Jwxttj=6195) 01/06/17 12:55 U Benzodiazepines Scrn Negative ng/mL (Pxqmdc=246) 01/06/17 12:55 Urine Cocaine Screen Negative ng/mL (Cutoff= 300) 01/06/17 12:55 U Marijuana (THC) Screen Negative ng/mL (Cutoff = 50) 01/06/17 12:55 Ethyl Alcohol < 10 mg/dL (0-10) 01/06/17 12:52 Assessment and Plan (1) Bipolar disorder Current visit: No Status: Chronic Plan: Admit inpatient for safety and stabilization, Close observation, Suicide Precautions per unit protocol, Encourage participation in unit milieu, Group Therapy, Monitor sleep, Monitor appetite Additional Plan: Will restart patient on medication after verification by pharmacy and will continue to monitor. Risks, benefits, side effects, alternatives discussed w/pt: Yes Patient agreeable to treatment: Yes Qualifiers: Active/Remission status: currently active Current bipolar episode type: depressed Current episode severity: severe Psychotic features: with psychotic features Qualified Code(s): F31.5 - Bipolar disorder, current episode depressed, severe, with psychotic features
--- NOTE | 2017-01-07 12:28 | Electrocardiograph Report ---
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
[2017-01-07] MEDS: traZODone 50 MG TABLET PO SCH (20:36)
[2017-01-08] MEDS: Ziprasidone 80 MG CAPSULE PO SCH ×2 (09:02→20:12)
[2017-01-08] MEDS: FLUoxetine 20 MG CAPSULE PO SCH (09:02)
[2017-01-08] MEDS: *HR* SitaGLIPtin 100 MG TABLET PO SCH (09:03)
[2017-01-08] MEDS: Aspirin Enteric Coated 81 MG Tablet PO SCH (09:03)
[2017-01-08] MEDS: lamoTRIgine 25 MG TABLET PO SCH (09:03)
[2017-01-08] MEDS: Topiramate 100 MG TABLET PO SCH (09:03)
[2017-01-08] MEDS: Nicotine 21 MG PATCH.TD24 TD SCH (09:03)
--- NOTE | 2017-01-08 13:51 | Psychiatry Progress Note ---
Date of Encounter: 01/08/17 Time of Encounter: 13:30 Subjective Interval history: Patient is seen for follow-up. Staff reports she is seclusive to room, not participating and activities. She was restarted on her medication and she is tolerating them without any side effects. She reports better sleep and she is less confused. I reviewed her medication with her. She was encouraged to participate in activities and groups. Review of Systems Psychiatric: Reports: abnormal sleep pattern, suicidal ideation, auditory hallucinations, confusion, mood swings Objective: Exam Patient orientation: Yes Person, Yes Time, Yes Place Level of alertness: Alert, Sedated Patient appearance: Appropriate, Well Groomed Behavior: calm, cooperative, anxious, guarded, withdrawn Psychomotor activity: Slowed Eye contact: Maintains Eye Contact Mood description: Anxious Affect description: congruent with mood, constricted Speech pattern: Normal rate, Normal rhythm, Normal tone, Impoverished Speech volume: Normal Thought process: Linear, Goal Oriented, Slowed Thinking Thought content: No Suicidal ideation, No Homicidal ideation, No Overt delusions Perceptual disturbances: No Auditory hallucinations, No Visual hallucinations Judgment: Fair Insight: Partial Results - Vital Signs Vital Signs: Temp Pulse Resp BP Pulse Ox 98.5 F 94 16 110/85 96 01/08/17 09:00 01/08/17 09:00 01/08/17 09:00 01/08/17 09:00 01/06/17 16:00 - Labs Labs: Laboratory Results - last 24 hr 01/08/17 06:02 POC Glucose 113 H Assessment and Plan (1) Bipolar disorder Current visit: No Status: Chronic Plan: Continue hospitalization, Close observation, Suicide Precautions per unit protocol, Encourage participation in unit milieu, Group Therapy, Monitor sleep, Monitor appetite Risks, benefits, side effects, alternatives discussed w/pt: Yes Patient agreeable to treatment: Yes Qualifiers: Active/Remission status: currently active Current bipolar episode type: depressed Current episode severity: severe Psychotic features: with psychotic features Qualified Code(s): F31.5 - Bipolar disorder, current episode depressed, severe, with psychotic features Consult Discharge Plan - Plan [facility] 8:00 am (The above appointment is with Arlene Perry for counseling. You will also see Ale Shay, psychiatric prescriber, 02/18/2017 at 11:00am.)
[2017-01-08] MEDS: traZODone 50 MG TABLET PO SCH (20:12)
[2017-01-08] MEDS: Ibuprofen 400 MG TABLET PO PRN (20:12)
[2017-01-09] MEDS: Ibuprofen 400 MG TABLET PO PRN (04:12)
[2017-01-09] MEDS: *HR* SitaGLIPtin 100 MG TABLET PO SCH (08:25)
[2017-01-09] MEDS: lamoTRIgine 25 MG TABLET PO SCH (08:25)
[2017-01-09] MEDS: FLUoxetine 20 MG CAPSULE PO SCH (08:26)
[2017-01-09] MEDS: Ziprasidone 80 MG CAPSULE PO SCH ×2 (08:31→21:13)
[2017-01-09] MEDS: Aspirin Enteric Coated 81 MG Tablet PO SCH (08:31)
[2017-01-09] MEDS: Nicotine 21 MG PATCH.TD24 TD SCH (08:31)
[2017-01-09] MEDS: Topiramate 100 MG TABLET PO SCH (08:31)
[2017-01-09] MEDS: Mag Hydrox/Al Hydrox/Simeth 30 ML UDC PO PRN (09:27)
--- NOTE | 2017-01-09 13:44 | Psychiatry Progress Note ---
Date of Encounter: 01/09/17 Time of Encounter: 13:00 Subjective Interval history: Patient is seen for follow-up. She reports feeling better and sleeping better. Her appetite is improving. Her affect is brighter and mood is not depressed. She denied any hallucination or suicidal ideation. She participated in activities and compliant with medication. She is sedated on and off with the start of medication. She was off medication for several weeks prior to admission. Review of Systems Psychiatric: Reports: abnormal sleep pattern, suicidal ideation, auditory hallucinations, confusion, mood swings Objective: Exam Patient orientation: Yes Person, Yes Time, Yes Place Level of alertness: Alert, Sedated Patient appearance: Appropriate, Well Groomed Behavior: calm, cooperative, guarded Psychomotor activity: Normal Eye contact: Maintains Eye Contact Mood description: Euthymic/stable, Anxious Affect description: congruent with mood, full range Speech pattern: Normal rate, Normal rhythm, Normal tone, Slowed Speech volume: Normal Thought process: Linear, Goal Oriented, Slowed Thinking Thought content: No Suicidal ideation, No Homicidal ideation, No Overt delusions Perceptual disturbances: No Auditory hallucinations, No Visual hallucinations Judgment: Fair Insight: Partial Results - Vital Signs Vital Signs: Temp Pulse Resp BP Pulse Ox 97.0 F L 96 14 103/78 96 01/09/17 09:00 01/09/17 09:00 01/09/17 09:00 01/09/17 09:00 01/06/17 16:00 - Labs Labs: Laboratory Results - last 24 hr 01/08/17 01/09/17 16:37 06:56 POC Glucose 101 H 126 H Assessment and Plan (1) Bipolar disorder Current visit: No Status: Chronic Plan: Continue hospitalization, Close observation, Suicide Precautions per unit protocol, Encourage participation in unit milieu, Group Therapy, Monitor sleep, Monitor appetite Risks, benefits, side effects, alternatives discussed w/pt: Yes Patient agreeable to treatment: Yes Qualifiers: Active/Remission status: currently active Current bipolar episode type: depressed Current episode severity: severe Psychotic features: with psychotic features Qualified Code(s): F31.5 - Bipolar disorder, current episode depressed, severe, with psychotic features Consult Discharge Plan - Plan Referrals: [facility] [Outside] - 01/14/17 8:00 am (The above appointment is with Arlene Perry for counseling. You will also see Ale Shay, psychiatric prescriber, 02/18/2017 at 11:00am. This is the first available appointment. You may contact the office regularly to check for cancellations that would allow you to be seen sooner.)
[2017-01-09] MEDS: traZODone 50 MG TABLET PO SCH (21:13)
[2017-01-10] MEDS: FLUoxetine 20 MG CAPSULE PO SCH (09:10)
[2017-01-10] MEDS: Nicotine 21 MG PATCH.TD24 TD SCH (09:10)
[2017-01-10] MEDS: Aspirin Enteric Coated 81 MG Tablet PO SCH (09:11)
[2017-01-10] MEDS: *HR* SitaGLIPtin 100 MG TABLET PO SCH (09:11)
[2017-01-10] MEDS: lamoTRIgine 25 MG TABLET PO SCH (09:11)
[2017-01-10] MEDS: Ziprasidone 80 MG CAPSULE PO SCH ×2 (09:11→21:06)
[2017-01-10] MEDS: Topiramate 100 MG TABLET PO SCH (09:11)
[2017-01-10] MEDS: Mag Hydrox/Al Hydrox/Simeth 30 ML UDC PO PRN (09:22)
--- NOTE | 2017-01-10 10:36 | Psychiatry Progress Note ---
Date of Encounter: 01/10/17 Time of Encounter: 10:35 Subjective Interval history: Patient is here for follow-up. She reports feeling tired and sleeping longer hours. Otherwise her mood is better and denies suicidal ideation and denied any paranoia or hallucinations. She is less isolated and more interactive. Review of Systems Psychiatric: Reports: abnormal sleep pattern, suicidal ideation, auditory hallucinations, confusion, mood swings Objective: Exam Patient orientation: Yes Person, Yes Time, Yes Place Level of alertness: Alert, Sedated Patient appearance: Appropriate, Well Groomed Behavior: calm, cooperative Psychomotor activity: Slowed Eye contact: Maintains Eye Contact Mood description: Euthymic/stable Affect description: congruent with mood, full range Speech pattern: Normal rate, Normal rhythm, Normal tone Speech volume: Normal Thought process: Linear, Goal Oriented Thought content: No Suicidal ideation, No Homicidal ideation, No Overt delusions Perceptual disturbances: No Auditory hallucinations, No Visual hallucinations Judgment: Fair Insight: Partial Results - Vital Signs Vital Signs: Temp Pulse Resp BP Pulse Ox 97.4 F L 93 18 119/85 96 01/10/17 08:00 01/10/17 08:00 01/10/17 08:00 01/10/17 08:00 01/06/17 16:00 - Labs Labs: Laboratory Results - last 24 hr 01/09/17 01/10/17 21:11 09:17 POC Glucose 139 H 163 H Assessment and Plan (1) Bipolar disorder Current visit: No Status: Chronic Plan: Continue hospitalization, Close observation, Suicide Precautions per unit protocol, Encourage participation in unit milieu, Group Therapy, Monitor sleep, Monitor appetite Additional Plan: We will discontinue Seroquel Risks, benefits, side effects, alternatives discussed w/pt: Yes Patient agreeable to treatment: Yes Qualifiers: Active/Remission status: currently active Current bipolar episode type: depressed Current episode severity: severe Psychotic features: with psychotic features Qualified Code(s): F31.5 - Bipolar disorder, current episode depressed, severe, with psychotic features Consult Discharge Plan - Plan Referrals: [facility] [Outside] - 01/14/17 8:00 am (The above appointment is with Arlene Perry for counseling. You will also see Ale Shay, psychiatric prescriber, 02/18/2017 at 11:00am. This is the first available appointment. You may contact the office regularly to check for cancellations that would allow you to be seen sooner.)
[2017-01-10] MEDS: traZODone 50 MG TABLET PO SCH (21:06)
[2017-01-10] MEDS: Ibuprofen 400 MG TABLET PO PRN (21:06)
[2017-01-11] MEDS: Nicotine 21 MG PATCH.TD24 TD SCH (08:30)
[2017-01-11] MEDS: Topiramate 100 MG TABLET PO SCH (08:30)
[2017-01-11] MEDS: lamoTRIgine 25 MG TABLET PO SCH (08:30)
[2017-01-11] MEDS: *HR* SitaGLIPtin 100 MG TABLET PO SCH (08:30)
[2017-01-11] MEDS: Aspirin Enteric Coated 81 MG Tablet PO SCH (08:30)
[2017-01-11] MEDS: Ziprasidone 80 MG CAPSULE PO SCH (08:30)
[2017-01-11] MEDS: FLUoxetine 20 MG CAPSULE PO SCH (08:30)
[2017-01-11 09:37] VITALS: BP 109/75
--- NOTE | 2017-01-11 12:28 | Physician Discharge Referral ---
- Diagnosis (1) Bipolar disorder Status: Chronic - Respiratory Orders Smoking Cessation: Smoking cessation has been advised. For more information, call the [place] Tobacco Quit Line at 5-447-BODC-NOW. - Services Needed Following services are medically necessary services: Nursing, Home Health Aide - Transfer Medications Home Medications: Albuterol Sulfate [Albuterol Inhaler] 2 puff IH Q6HR PRN 07/09/16 [History] Aspirin [Lo-Dose Aspirin EC] 81 mg PO DAILY 07/09/16 [History] Hydroxychloroquine [Plaquenuil] 200 mg PO BID 07/09/16 [History] Levothyroxine [Synthroid] 50 mcg PO QAM 07/09/16 [History] SitaGLIPtin [Januvia] 100 mg PO DAILY 07/09/16 [History] Topiramate [Topamax] 200 mg PO DAILY 07/09/16 [History] Atorvastatin [Lipitor] 40 mg PO HS #60 tablet 08/07/16 [Rx] Ergocalciferol (VITAMIN D2) [Vitamin D2] 50,000 unit PO QWEEK 01/06/17 [History] FLUoxetine HCl [Prozac] 40 mg PO QAM 01/06/17 [History] Quetiapine Fumarate [SEROquel] 25 mg PO HS 01/06/17 [History] Trazodone HCl 100 mg PO HS 01/06/17 [History] Ziprasidone HCl [Geodon] 80 mg PO BID 01/06/17 [History] lamoTRIgine [Lamictal] 25 mg PO DAILY 01/06/17 [History] Allergies/Adverse Reactions: Allergies carbamazepine [From Tegretol] Allergy (Verified 08/11/16 20:11) See Comments UNABLE TO VERIFY REACTION- NOT LISTED ON PATIENT'S ECW LAST APPT. AND PATIENT UNABLE TO CONFIRM- ALL ALLERGIES/REACTIONS OBTAINED FROM PATIENT'S PCP: DR. VELEZ divalproex sodium [From Depakote] Allergy (Verified 08/11/16 20:11) See Comments UNABLE TO VERIFY REACTION- NOT LISTED ON PATIENT'S ECW LAST APPT. AND PATIENT UNABLE TO CONFIRM- ALL ALLERGIES/REACTIONS OBTAINED FROM PATIENT'S PCP: DR. VELEZ [place] Allergy (Verified 08/11/16 20:11) See Comments UNABLE TO VERIFY REACTION- NOT LISTED ON PATIENT'S ECW LAST APPT. AND PATIENT UNABLE TO CONFIRM- ALL ALLERGIES/REACTIONS OBTAINED FROM PATIENT'S PCP: DR. VELEZ meloxicam [From Mobic] Allergy (Verified 08/11/16 20:11) See Comments UNABLE TO VERIFY REACTION- NOT LISTED ON PATIENT'S ECW LAST APPT. AND PATIENT UNABLE TO CONFIRM- ALL ALLERGIES/REACTIONS OBTAINED FROM PATIENT'S PCP: DR. VELEZ phenytoin [From Dilantin] Allergy (Verified 08/11/16 20:11) See Comments UNABLE TO VERIFY REACTION- NOT LISTED ON PATIENT'S ECW LAST APPT. AND PATIENT UNABLE TO CONFIRM- ALL ALLERGIES/REACTIONS OBTAINED FROM PATIENT'S PCP: DR. VELEZ tramadol [From Ultram] Allergy (Verified 08/11/16 20:11) See Comments UNABLE TO VERIFY REACTION- NOT LISTED ON PATIENT'S ECW LAST APPT. AND PATIENT UNABLE TO CONFIRM- ALL ALLERGIES/REACTIONS OBTAINED FROM PATIENT'S PCP: DR. VELEZ methocarbamol [From Robaxin] Adverse Reaction (Verified 08/11/16 20:11) Dizziness NSAIDS (Non-Steroidal Anti-Inflamma Adverse Reaction (Verified 08/11/16 20:11) See Comments ELEVATED LIVER ENZYMES Certification: Further, I certify that my clinical findings support that this patient is homebound (i.e. absences from home require considerable and taxing effort and are for medical reasons or zoroastrianism services or infrequently or short duration when for other reasons) because: psychiatric disability. Homebound Reason: Patient requires assistance of a person or device to safely leave home Attestation: My signature below is to certify that this patient is under my care and that I, or nurse practitioner, or a physician's assistant printer floor covering working with me, has a face-to -face encounter with this patient.
--- NOTE | 2017-01-11 12:40 | Discharge Summary ---
Date of Encounter: 01/11/17 Time of Encounter: 12:30 Diagnosis - Discharge Diagnosis (1) Bipolar disorder Status: Chronic Qualifiers: Active/Remission status: currently active Current bipolar episode type: depressed Current episode severity: severe Psychotic features: with psychotic features Qualified Code(s): F31.5 - Bipolar disorder, current episode depressed, severe, with psychotic features Medications - Discharge Medications Prescriptions: FLUoxetine HCl [Prozac] 40 mg PO QAM #30 capsule lamoTRIgine [Lamictal] 25 mg PO DAILY #30 tablet Omeprazole [PriLOSEC] 40 mg PO DAILY@0630 #30 capsule. Topiramate [Topamax] 200 mg PO DAILY #30 tablet Trazodone HCl 100 mg PO HS #30 tablet Ziprasidone HCl [Geodon] 80 mg PO BID #60 capsule Albuterol Sulfate [Albuterol Inhaler] 2 puff IH Q6HR PRN 07/09/16 [History] Aspirin [Lo-Dose Aspirin EC] 81 mg PO DAILY 07/09/16 [History] Hydroxychloroquine [Plaquenuil] 200 mg PO BID 07/09/16 [History] Levothyroxine [Synthroid] 50 mcg PO QAM 07/09/16 [History] SitaGLIPtin [Januvia] 100 mg PO DAILY 07/09/16 [History] Atorvastatin [Lipitor] 40 mg PO HS #60 tablet 08/07/16 [Rx] Ergocalciferol (VITAMIN D2) [Vitamin D2] 50,000 unit PO QWEEK 01/06/17 [History] FLUoxetine HCl [Prozac] 40 mg PO QAM #30 capsule 01/11/17 [Rx] Omeprazole [PriLOSEC] 40 mg PO DAILY@0630 #30 capsule. 01/11/17 [Rx] Topiramate [Topamax] 200 mg PO DAILY #30 tablet 01/11/17 [Rx] Trazodone HCl 100 mg PO HS #30 tablet 01/11/17 [Rx] Ziprasidone HCl [Geodon] 80 mg PO BID #60 capsule 01/11/17 [Rx] lamoTRIgine [Lamictal] 25 mg PO DAILY #30 tablet 01/11/17 [Rx] Allergies carbamazepine [From Tegretol] Allergy (Verified 08/11/16 20:11) See Comments UNABLE TO VERIFY REACTION- NOT LISTED ON PATIENT'S ECW LAST APPT. AND PATIENT UNABLE TO CONFIRM- ALL ALLERGIES/REACTIONS OBTAINED FROM PATIENT'S PCP: DR. VELEZ divalproex sodium [From Depakote] Allergy (Verified 08/11/16 20:11) See Comments UNABLE TO VERIFY REACTION- NOT LISTED ON PATIENT'S ECW LAST APPT. AND PATIENT UNABLE TO CONFIRM- ALL ALLERGIES/REACTIONS OBTAINED FROM PATIENT'S PCP: DR. VELEZ [place] Allergy (Verified 08/11/16 20:11) See Comments UNABLE TO VERIFY REACTION- NOT LISTED ON PATIENT'S ECW LAST APPT. AND PATIENT UNABLE TO CONFIRM- ALL ALLERGIES/REACTIONS OBTAINED FROM PATIENT'S PCP: DR. VELEZ meloxicam [From Mobic] Allergy (Verified 08/11/16 20:11) See Comments UNABLE TO VERIFY REACTION- NOT LISTED ON PATIENT'S ECW LAST APPT. AND PATIENT UNABLE TO CONFIRM- ALL ALLERGIES/REACTIONS OBTAINED FROM PATIENT'S PCP: DR. VELEZ phenytoin [From Dilantin] Allergy (Verified 08/11/16 20:11) See Comments UNABLE TO VERIFY REACTION- NOT LISTED ON PATIENT'S ECW LAST APPT. AND PATIENT UNABLE TO CONFIRM- ALL ALLERGIES/REACTIONS OBTAINED FROM PATIENT'S PCP: DR. VELEZ tramadol [From Ultram] Allergy (Verified 08/11/16 20:11) See Comments UNABLE TO VERIFY REACTION- NOT LISTED ON PATIENT'S ECW LAST APPT. AND PATIENT UNABLE TO CONFIRM- ALL ALLERGIES/REACTIONS OBTAINED FROM PATIENT'S PCP: DR. VELEZ methocarbamol [From Robaxin] Adverse Reaction (Verified 08/11/16 20:11) Dizziness NSAIDS (Non-Steroidal Anti-Inflamma Adverse Reaction (Verified 08/11/16 20:11) See Comments ELEVATED LIVER ENZYMES Provider Date of admission: 01/06/17 17:20 Primary care physician: PCP NO Consults: 01/06/17 18:10 Consult to Pastoral Services [CONS] Routine Comment: Discharging clinician: Kameron Navas Assessment and Plan - Patient/Caregiver Discharge Instructions Activity: resume usual activities as tolerated Diet: regular diet - Follow up Plan Follow up with: Darío Reinoso [Outside] - 01/14/17 8:00 am (The above appointment is with Arlene Perry for counseling. You will also see Ale Shay, psychiatric prescriber, 02/18/2017 at 11:00am. This is the first available appointment. You may contact the office regularly to check for cancellations that would allow you to be seen sooner.) Functional capacity at discharge: independent ambulation Overall status at discharge: Stable Disposition: Home, Self-Care Hospital Course Hospital course: Ms. Ash is a 51 year old female admitted suicidal ideation and noncompliance with medication. For details of admission please see H&P On the units patient was started on her medication, she tolerated the medication but complained of feeling tired and sleepy. Seroquel was discontinued and patient also was given omeprazole for GERD. Patient reported improved energy level and she was able to participate in some activities and denied any suicidal ideation or auditory hallucinations. Prior to discharge patient was medically stable, nonsuicidal not psychotic and future oriented. Her discharge plan and disposition to longer-term care was completed by social work. - Time Spent with Patient Total time spent providing and/or coordinating discharge services: Greater than 30 minutes Quality - Multiple Antipsychotics Patient discharged on 2 or more antipsychotic medications: No Procedures - Procedures Procedures: Medication Management, Crisis Stabilization, Supportive Therapy, Group Therapy, Psychoeducational Therapy Mental Status Exam - Mental Status Exam Patient orientation: Yes Person, Yes Time, Yes Place Level of alertness: Alert Patient appearance: Appropriate, Well Groomed Behavior: calm, cooperative Psychomotor activity: Normal Eye contact: Maintains Eye Contact Mood description: Euthymic/stable Affect description: congruent with mood, full range Speech pattern: Normal rate, Normal rhythm, Normal tone Speech Volume: Normal Thought process: Linear, Goal Oriented Thought Content: No Suicidal ideation, No Homicidal ideation, No Overt delusions Perceptual Disturbances: No Auditory hallucinations, No Visual hallucinations Judgment: Limited Insight: Partial
== END 2017-01-11 13:55 | disposition home or self-care (01) | DRG 885 ==
LOC: EMEROO 12:27 → 1ANU 17:20
PROVIDERS: ADMIT Psychiatry & Neurology Psychiatry; ATTEND Psychiatry & Neurology Psychiatry

== ENCOUNTER 2017-02-19 11:38 | Observation (INO) ==
[2017-02-19] MEDS ORDERED: Aspirin 81 MG TAB.CHEW PO ONE (11:47)
--- NOTE | 2017-02-19 11:51 | Emergency Department Note ---
Disposition Clinical Impression: Chest pain Qualifiers: Chest pain type: unspecified Qualified Code(s): R07.9 - Chest pain, unspecified Disposition: Admitted As Inpatient Condition: Fair Referrals: NO,PCP [Non-Partnered Physician] - Forms: ED Satisfaction Letter Time of Disposition: 13:28 Chest Pain HPI - General Chief Complaint: ED Chest Pain Stated Complaint: "chest pain/sob" Time Seen by Provider: 02/19/17 11:41 Source: patient Mode of arrival: ambulatory Limitations: no limitations Vital Signs Reviewed: Yes Nursing Notes Reviewed: Yes - History of Present Illness HPI Narrative: 51-year-old with a history of previous MN 5 years ago who comes in complaining of chest pain. She describes it as pressure-like chest pain across her chest. The patient states she was seen 2 days ago for facial pressure was diagnosed with sinusitis and placed on antibiotics. Pt complaint: chest pain Onset (ago): [employer] Duration: constant Onset: during rest Pain Location: substernal, left chest Severity: moderate Quality: tightness, aching, heaviness Pain Radiation: none Improves with: nothing Worsens with: nothing Context: recent illness Treatments prior to arrival chest pain: aspirin - Related Data Home Medications Medication Instructions Recorded Confirmed Albuterol Sulfate [Albuterol 2 puff IH Q6HR PRN 07/09/16 01/06/17 Inhaler] Aspirin [Lo-Dose Aspirin EC] 81 mg PO DAILY 07/09/16 01/06/17 Hydroxychloroquine [Plaquenuil] 200 mg PO BID 07/09/16 01/06/17 Levothyroxine [Synthroid] 50 mcg PO QAM 07/09/16 01/06/17 SitaGLIPtin [Januvia] 100 mg PO DAILY 07/09/16 01/06/17 Ergocalciferol (VITAMIN D2) 50,000 unit PO QWEEK 01/06/17 01/06/17 [Vitamin D2] Previous Rx's Medication Instructions Recorded Atorvastatin [Lipitor] 40 mg PO HS #60 tablet 08/07/16 FLUoxetine HCl [Prozac] 40 mg PO QAM #30 capsule 01/11/17 Omeprazole [PriLOSEC] 40 mg PO DAILY@0630 #30 capsule. 01/11/17 Topiramate [Topamax] 200 mg PO DAILY #30 tablet 01/11/17 Trazodone HCl 100 mg PO HS #30 tablet 01/11/17 Ziprasidone HCl [Geodon] 80 mg PO BID #60 capsule 01/11/17 lamoTRIgine [Lamictal] 25 mg PO DAILY #30 tablet 01/11/17 Allergies Allergy/AdvReac Type Severity Reaction Status Date / Time carbamazepine [From Tegretol] Allergy See Verified 08/11/16 20:11 Comments divalproex sodium Allergy See Verified 08/11/16 20:11 [From Depakote] Comments Protivin Allergy See Verified 08/11/16 20:11 Comments meloxicam [From Mobic] Allergy See Verified 08/11/16 20:11 Comments phenytoin [From Dilantin] Allergy See Verified 08/11/16 20:11 Comments tramadol [From Ultram] Allergy See Verified 08/11/16 20:11 Comments methocarbamol [From Robaxin] AdvReac Dizziness Verified 08/11/16 20:11 NSAIDS (Non-Steroidal AdvReac See Verified 08/11/16 20:11 Anti-Inflamma Comments All systems ED: reviewed and negative except as stated. Constitutional: Denies: fever, chills, weakness, weight change Eyes: Denies: eye pain, eye discharge, vision change ENT ED: Denies: ear pain, throat pain, dental pain, hearing loss, epistaxis, congestion, dysphagia Cardiovascular: Reports: chest pain. Denies: palpitations, dyspnea on exertion , edema, syncope Respiratory: Denies: cough, dyspnea, wheezes, hemoptysis, stridor Gastrointestinal: Denies: abdominal pain, nausea, vomiting, diarrhea, constipation, hematemesis, melena, hematochezia Genitourinary: Denies: dysuria, frequency, hematuria, discharge Musculoskeletal: Denies: back pain, neck pain, arthralgia, myalgia Integumentary: Denies: rash, abrasion, lesions Neurological: Denies: headache, weakness, numbness, paresthesias, confusion, abnormal gait, vertigo Psychiatric: Denies: anxiety, depression, suicidal thoughts, homicidal thoughts , auditory hallucinations, visual hallucinations Endocrine: Denies: fatigue Hematological/Lymphatic: Denies: easy bleeding, easy bruising Allergic/Immunologic: Denies: facial swelling, urticaria Chest Pain PMH - Past Medical History Medical history: Reports: arthritis, asthma, COPD, coronary artery disease, diabetes, fibromyalgia, GERD, hyperlipidemia, hypertension, migraine, osteoporosis, RA, thyroid disease, TIA, other Surgical history: Reports: appendectomy, hysterectomy, orthopedic, other, sinus surgery, VIKI/BSO, other Psychiatric history: Reports: bipolar, depression, previous psychiatric hospitalization - Social History Smoking Status: Current every day smoker Alcohol use: Reports: none Drug use: Reports: none Physical Exam - General Limitations: no limitations General appearance: alert, in no apparent distress - Head Head exam: atraumatic, normocephalic, normal inspection - Eye Eye exam: Present: normal appearance, PERRL, EOMI - ENT ENT exam: normal exam, normal oropharynx, mucous membranes moist - Neck Neck exam: Present: normal inspection, full ROM, trachea midline - Chest Chest inspection: Present: normal inspection, symmetric chest wall rise - Respiratory Respiratory exam: Present: normal lung sounds bilaterally - Cardiovascular Cardiovascular exam: Present: regular rate, normal rhythm, normal heart sounds - Abdominal Exam Abdominal exam: Present: soft, Non-Tender. Absent: tenderness, distention, guarding, rebound, rigidity - Extremities Exam Extremities exam: Present: normal inspection, full ROM. Absent: tenderness, pedal edema - Expanded Lower Extremity Exam Neurovascular/Tendon exam: Absent: motor deficit, sensory deficit, tendon deficit Gait: observed and normal - Back Exam Back exam: Present: normal inspection, full ROM. Absent: tenderness - Neurological Exam Neurological exam: Present: alert, oriented X3 - Psychiatric Psychiatric exam: Present: normal affect, normal mood - Skin Skin exam: Present: warm, dry, intact, normal color Course - Reevaluation(s) Reevaluation #1: 51-year-old female comes in with some intermittent chest pain over the last day with pressure in her head. She does have a history of an MN 5 years ago. We did obtain a workup for the chest pain her EKG showed no acute change initial troponin was negative chest x-ray was clear. Patient will be admitted for rule out. Time: 13:27 - Consultations Consultation #1: Discussed with , admit. Time: 13:27 Vital Signs Temperature 97.8 F 02/19/17 11:42 Pulse Rate 79 02/19/17 11:42 Respiratory Rate 18 02/19/17 11:42 Blood Pressure 114/77 02/19/17 11:42 O2 Sat by Pulse Oximetry 96 02/19/17 11:42 Temperature 97.8 F 02/19/17 11:42 Pulse Rate 82 02/19/17 11:42 Respiratory Rate 18 02/19/17 11:42 Blood Pressure 114/77 02/19/17 11:42 O2 Sat by Pulse Oximetry 97 02/19/17 11:47 Oxygen Delivery Oxygen Delivery Room Air Chest Pain - Lab Data Lab results reviewed: Yes I reviewed the patient's lab results. Result diagrams: 02/19/17 12:22 02/19/17 12:22 Lab Results 02/19/17 02/19/17 02/19/17 Range/Units 12:22 12:22 12:22 WBC 9.7 (4.3-11.1) K/mcL RBC 4.94 (3.82-4.97) M/mcL Hgb 15.2 (11.5-15.4) g/dL Hct 45.2 H (35.3-44.9) % MCV 91.5 (83.0-100.0) fL MCH 30.8 (28.0-33.3) pg MCHC 33.6 (31.6-35.5) g/dL RDW 14.0 (11.5-14.5) % Plt Count 305 (140-400) K/mcL MPV 8.1 L (9.4-12.4) fL Immature Gran % 0.4 (0-4) % Seg Neutrophils % 69.4 % Lymphocytes % 22.3 % Monocytes % 6.1 % Eosinophils % 1.3 % Basophils % 0.5 % Neutrophils # 6.7 (1.6-8.9) K/mcL Lymphocytes # 2.2 (0.6-4.6) K/mcL Monocytes # 0.6 (0.0-1.3) K/mcL Eosinophils # 0.1 (0.0-0.6) K/mcL Basophils # 0.1 (0.0-0.2) K/mcL PT 12.6 H (9.4-12.1) Seconds INR 1.2 APTT 32.4 (26.0-36.0) Seconds Sodium 138 (136-145) mEq/L Potassium 4.1 (3.5-4.5) mEq/L Chloride 108 (98-109) mEq/L Carbon Dioxide 24 (19-29) mEq/L BUN 8 (7-20) mg/dL Creatinine 0.86 (0.57-1.11) mg/dL Est GFR ( Amer) > 60 (> 60) Est GFR (Non-Af Amer) > 60 (> 60) BUN/Creatinine Ratio 9 (6-26) Glucose 103 H (70-99) mg/dL Calculated Osmolality 285 (280-300) Calcium 9.2 (8.6-10.8) mg/dL Troponin I (0-0.03) ng/mL 02/19/17 Range/Units 12:22 WBC (4.3-11.1) K/mcL RBC (3.82-4.97) M/mcL Hgb (11.5-15.4) g/dL Hct (35.3-44.9) % MCV (83.0-100.0) fL MCH (28.0-33.3) pg MCHC (31.6-35.5) g/dL RDW (11.5-14.5) % Plt Count (140-400) K/mcL MPV (9.4-12.4) fL Immature Gran % (0-4) % Seg Neutrophils % % Lymphocytes % % Monocytes % % Eosinophils % % Basophils % % Neutrophils # (1.6-8.9) K/mcL Lymphocytes # (0.6-4.6) K/mcL Monocytes # (0.0-1.3) K/mcL Eosinophils # (0.0-0.6) K/mcL Basophils # (0.0-0.2) K/mcL PT (9.4-12.1) Seconds INR APTT (26.0-36.0) Seconds Sodium (136-145) mEq/L Potassium (3.5-4.5) mEq/L Chloride (98-109) mEq/L Carbon Dioxide (19-29) mEq/L BUN (7-20) mg/dL Creatinine (0.57-1.11) mg/dL Est GFR ( Amer) (> 60) Est GFR (Non-Af Amer) (> 60) BUN/Creatinine Ratio (6-26) Glucose (70-99) mg/dL Calculated Osmolality (280-300) Calcium (8.6-10.8) mg/dL Troponin I 0.00 (0-0.03) ng/mL - Radiology Data Radiology results reviewed: Yes I reviewed the patient's radiology results. Chest X-Ray 02/19/17 11:47 IMPRESSION: No acute abnormality. D/ / Emile Llanes MD / Emile Llanes MD Interpreting Provider: Emile Llanes MD Head CT 02/19/17 11:47 IMPRESSION: No acute intracranial abnormality. D/ / Wing Dietz MD / Wing Dietz MD Interpreting Provider: Wing Dietz MD - EKG Data EKG attestation: Yes I reviewed and interpreted this EKG. EKG shows normal: sinus rhythm Rate: normal Rhythm: NSR [place]/QRS: normal Interpretation: no acute changes Heart Score - Score History: Moderately Suspicious EKG: Non Specific repolarisation Disturbance Age: 45-65 Risk Factors: Equal/Greater than 3 risk factor or history of atherosclerotic disease Troponin: Less than normal limit HEART Score Total: 5
[2017-02-19 12:34] LABS: Basophils # 0.1 K/mcL (0.0-0.2); Basophils % 0.5 %; Eosinophils # 0.1 K/mcL (0.0-0.6); Eosinophils % 1.3 %; Hematocrit 45.2 % (35.3-44.9); Hemoglobin 15.2 g/dL (11.5-15.4); Immature Granulocytes % 0.4 % (0-4); Lymphocytes # 2.2 K/mcL (0.6-4.6); Lymphocytes % 22.3 %; Mean Corpuscular HGB Conc 33.6 g/dL (31.6-35.5); Mean Corpuscular Hemoglobin 30.8 pg (28.0-33.3); Mean Corpuscular Volume 91.5 fL (83.0-100.0); Mean Platelet Volume 8.1 fL (9.4-12.4); Monocytes # 0.6 K/mcL (0.0-1.3); Monocytes % 6.1 %; Neutrophils # 6.7 K/mcL (1.6-8.9); Platelet Count 305 K/mcL (140-400); Red Blood Count 4.94 M/mcL (3.82-4.97); Segmented Neutrophils % 69.4 %
[2017-02-19 12:47] LABS: BUN/Creatinine Ratio 9 (6-26); Blood Urea Nitrogen 8 mg/dL (7-20); Calcium 9.2 mg/dL (8.6-10.8); Carbon Dioxide 24 mEq/L (19-29); Chloride 108 mEq/L (98-109); Glucose 103 mg/dL (70-99); Osmolality,Calculated 285 (280-300); Potassium 4.1 mEq/L (3.5-4.5); Sodium 138 mEq/L (136-145); eGFR For African Americans > 60 (> 60); eGFR For Non-African Americans > 60 (> 60)
[2017-02-19 12:54] LABS: INR 1.2; Prothrombin Time 12.6 Seconds (9.4-12.1)
[2017-02-19 12:57] LABS: Activated Partial Thrombo Time 32.4 Seconds (26.0-36.0)
--- NOTE | 2017-02-19 15:38 | Internal Med History&Physical ---
Date of Encounter: 02/19/17 Time of Encounter: 15:00 Assessment and Plan (1) Chest pain Current visit: Yes Status: Acute 1 patient was experiencing chest pressure 2 hours before presenting to the ER. Pressure was nonradiating associated symptoms of nausea eventually resolved on its own. Per personal history She does have a past history of NH approximately 5 years ago. She is a smoker as well as diabetes and obese. she did have a stress test in August 2015 which was nondiagnostic echo EF of 6065% with mild diastolic dysfunction. First cardiac troponin was 0 we will continue to cycle troponins 2 we will obtain a cardiac echo 3 continuous cardiac monitoring 4 continue with aspirin and statin 5 check lipid profile 6 nitroglycerin as needed for chest pain 7 oxygen as needed 8 consult cardiology as needed Qualifiers: Chest pain type: unspecified Qualified Code(s): R07.9 - Chest pain, unspecified (2) COPD (chronic obstructive pulmonary disease) Current visit: No Status: Chronic Presently stable we will continue with bronchodilators and oxygen as needed to maintain SPO2 greater than 92% Encourage patient to stop smoking Qualifiers: COPD type: unspecified COPD Qualified Code(s): J44.9 - Chronic obstructive pulmonary disease, unspecified (3) Bipolar disorder Current visit: No Status: Chronic Qualifiers: Active/Remission status: currently active Current bipolar episode type: depressed Current episode severity: severe Psychotic features: with psychotic features Qualified Code(s): F31.5 - Bipolar disorder, current episode depressed, severe, with psychotic features (4) Diabetes mellitus Current visit: No Status: Chronic Accu-Cheks before meals at bedtime with sliding-scale insulin hold Januvia for now and resume once discharged Diabetic diet Qualifiers: Diabetes mellitus type: type 2 Diabetes mellitus complication status: without complication Diabetes mellitus jail insulin use: without 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 Ash is a 51 year old female past medical history of asthma COPD coronary disease diabetes fibromyalgia GERD hyperlipidemia hypertension rheumatoid arthritis thyroid disease and bipolar with previous psychiatric hospitalizations. According to the patient's approximate 2 hours before presenting to the ER patient experienced midsternal chest pressure while she was sitting. Described it as a pressure nonradiating pressure worsens with exertion and relieved with rest. Associated symptom of nausea. She presented to the ER with the above complaints. On arrival to the ER chest x-ray revealed no acute processes lab work was unremarkable troponin was [address]-T wave abnormalities. Patient did complain of a headache which she described as occurring the headache radiated to the base of her head. Been going on for approximately week and she did see urgent care about this and she was given antibiotics for sinus infection. CT of her head was negative. She will be admitted for further workup and evaluation. Presently the patient denies any chest pain this time she continues complaining of a headache no nausea vomiting or visual changes or photophobia. Lung sounds are clear heart sounds are regular S1-S2 with no rubs clicks, murmurs noted abdomen soft and nontender no pedal edema noted cranial nerves II through XII are intact patient is alert appropriate following simple commands. She E with ampicillin this time. I reviewed this case with Dr. Foote who agrees with plan. Past Med Surg Social Fam HX - Past Medical History Medical history: arthritis, asthma, COPD, coronary artery disease, diabetes, fibromyalgia, GERD, hyperlipidemia, hypertension, migraine, osteoporosis, RA, thyroid disease, TIA, other Psychiatric history: bipolar, depression, previous psychiatric hospitalization - Past Surgical History Surgical History: appendectomy, hysterectomy, orthopedic, other, sinus surgery, VIKI/BSO, other - Social History Smoking Status: Current every day smoker Smokeless Tobacco Status: No Alcohol use: none Drug use: none - Family History Mother Living Status: Age at : 55 Cause of : Subarachnoid hemorrhage Father Living Status: Still Living Hx Family Cardiac Disorders: Yes (Coronary artery disease heart disease) Internal Medicine - H&P: Meds Albuterol Sulfate [Albuterol Inhaler] 2 puff IH Q6HR PRN 07/09/16 [History] Aspirin [Lo-Dose Aspirin EC] 81 mg PO DAILY 07/09/16 [History] Hydroxychloroquine [Plaquenuil] 200 mg PO BID 07/09/16 [History] Levothyroxine [Synthroid] 50 mcg PO QAM 07/09/16 [History] SitaGLIPtin [Januvia] 100 mg PO DAILY 07/09/16 [History] Atorvastatin [Lipitor] 40 mg PO HS #60 tablet 08/07/16 [Rx] Ergocalciferol (VITAMIN D2) [Vitamin D2] 50,000 unit PO QWEEK 01/06/17 [History] FLUoxetine HCl [Prozac] 40 mg PO QAM #30 capsule 01/11/17 [Rx] Omeprazole [PriLOSEC] 40 mg PO DAILY@0630 #30 capsule. 01/11/17 [Rx] Topiramate [Topamax] 200 mg PO DAILY #30 tablet 01/11/17 [Rx] Trazodone HCl 100 mg PO HS #30 tablet 01/11/17 [Rx] Fluticasone/Salmeterol [Advair 250-50 Diskus] 1 puff IH BID 02/19/17 [History] Multivitamin [Multi-Day Vitamins] 1 tab PO DAILY 02/19/17 [History] Multivits Min/Iron/FA/Herb#186 [Hair, Skin & Nails Caplet] 1 tab PO DAILY [History] Allergies carbamazepine [From Tegretol] Allergy (Verified 08/11/16 20:11) See Comments UNABLE TO VERIFY REACTION- NOT LISTED ON PATIENT'S ECW LAST APPT. AND PATIENT UNABLE TO CONFIRM- ALL ALLERGIES/REACTIONS OBTAINED FROM PATIENT'S PCP: DR. VELEZ divalproex sodium [From Depakote] Allergy (Verified 08/11/16 20:11) See Comments UNABLE TO VERIFY REACTION- NOT LISTED ON PATIENT'S ECW LAST APPT. AND PATIENT UNABLE TO CONFIRM- ALL ALLERGIES/REACTIONS OBTAINED FROM PATIENT'S PCP: DR. VELEZ [place] Allergy (Verified 08/11/16 20:11) See Comments UNABLE TO VERIFY REACTION- NOT LISTED ON PATIENT'S ECW LAST APPT. AND PATIENT UNABLE TO CONFIRM- ALL ALLERGIES/REACTIONS OBTAINED FROM PATIENT'S PCP: DR. VELEZ meloxicam [From Mobic] Allergy (Verified 08/11/16 20:11) See Comments UNABLE TO VERIFY REACTION- NOT LISTED ON PATIENT'S ECW LAST APPT. AND PATIENT UNABLE TO CONFIRM- ALL ALLERGIES/REACTIONS OBTAINED FROM PATIENT'S PCP: DR. VELEZ phenytoin [From Dilantin] Allergy (Verified 08/11/16 20:11) See Comments UNABLE TO VERIFY REACTION- NOT LISTED ON PATIENT'S ECW LAST APPT. AND PATIENT UNABLE TO CONFIRM- ALL ALLERGIES/REACTIONS OBTAINED FROM PATIENT'S PCP: DR. VELEZ tramadol [From Ultram] Allergy (Verified 08/11/16 20:11) See Comments UNABLE TO VERIFY REACTION- NOT LISTED ON PATIENT'S ECW LAST APPT. AND PATIENT UNABLE TO CONFIRM- ALL ALLERGIES/REACTIONS OBTAINED FROM PATIENT'S PCP: DR. VELEZ methocarbamol [From Robaxin] Adverse Reaction (Verified 08/11/16 20:11) Dizziness NSAIDS (Non-Steroidal Anti-Inflamma Adverse Reaction (Verified 08/11/16 20:11) See Comments ELEVATED LIVER ENZYMES All Systems PM: A 10-system review of systems was performed and is negative for pertinent findings except as documented above in the HPI. - Constitutional Constitutional: no chills, no fever(s), no night sweats - EENT Eyes: no change in vision, no discharge, no pain, no photophobia Nose, mouth and throat: no dysphagia, no nasal discharge, no neck pain, no sore throat - Cardiovascular Cardiovascular ROS IM: chest pain, no diaphoresis, no dyspnea, no lightheadedness, no palpitations, no syncope - Respiratory Respiratory: no cough, no dyspnea, no wheezing, no excessive phlegm production - Gastrointestinal Gastrointestinal: no abdominal pain, no diarrhea, no hematemesis, no hematochezia, no melena, no nausea, no vomiting - Genitourinary Genitourinary: no change in urinary stream, no dysuria, no flank pain, no hematuria - Musculoskeletal Musculoskeletal ROS IM: no numbness, no tingling - Integumentary Integumentary IM: no rash, no unusual bruising - Neurological Neurological ROS: no confusion, no convulsions, no focal weakness, no numbness, no tingling, no tremor(s) - Hematologic/Lymphatic Hematologic/Lymphatic: no easy bruising - Constitutional Vitals: Temp Pulse Resp BP Pulse Ox 97.8 F 77 16 133/87 95 02/19/17 11:42 02/19/17 14:55 02/19/17 14:55 02/19/17 14:55 02/19/17 14:55 General appearance: Present: A&O X 3, answers questions appropriately - Head Head exam: Present: atraumatic, normocephalic - Eye Eye exam: Present: PERRL, conjuntiva pink, sclera anicteric Pupils: Present: PERRL - Neck Neck exam general surgery: Present: supple, trachea midline. Absent: lymphadenopathy - Respiratory Respiratory exam: Present: CTAB. Absent: accessory muscle use, rales, rhonchi, wheezes - Cardiovascular Cardiovascular exam: Present: RRR, +S1, +S2. Absent: diastolic murmur, gallop, rubs, systolic murmur - GI/Abdominal GI/Abdominal exam: Present: normal bowel sounds, soft, no peritoneal signs. Absent: distended, tenderness - Extremities Exam Extremities exam: Present: warm, radial pulses palpable and symetrical. Absent : calf tenderness, cyanotic, pedal edema - Neurological Exam Neurological exam: Present: CN II-XII intact, oriented X3, no focal deficits. Absent: pronater drift, facial droop, speech deficit - Psychiatric Psychiatric exam: Present: flat affect - Skin Skin exam: Present: dry, intact Internal Med - H&P Results - Labs CBC & Chem 7: 02/19/17 12:22 02/19/17 12:22 - EKG Data EKG shows normal: sinus rhythm - Diagnostic Studies Other Images Additional comments: Chest X-Ray 02/19/17 11:47 IMPRESSION: No acute abnormality. D/ / Emile Llanes MD / Emile Llanes MD Interpreting Provider: Emile Llanes MD Head CT 02/19/17 11:47 IMPRESSION: No acute intracranial abnormality. D/ / Wing Dietz MD / Wing Dietz MD Interpreting Provider: Wing Dietz MD - VTE Reasons for not Prescribing Prophylaxis: Treatment not Indicated - Low risk for VTE
[2017-02-19] MEDS ORDERED: Dextrose Gel 15 GM PO PRN ×2 (16:14)
[2017-02-19] MEDS ORDERED: *HR* Dextrose 50 % in Water (Syg) 50 ML SYRINGE IVP PRN (16:14)
[2017-02-19] MEDS ORDERED: D5% in Water 1,000 ML IVC PRN (16:14)
[2017-02-19] MEDS ORDERED: Nicotine 14 MG PATCH.TD24 TD SCH (16:15)
[2017-02-19] MEDS: Insulin LISPRO 300 UNITS/3 ML VIAL SQ SCH (17:03)
[2017-02-19] MEDS ORDERED: Insulin LISPRO 300 UNITS/3 ML VIAL SQ SCH (21:00)
[2017-02-19] MEDS ORDERED: traZODone 50 MG TABLET PO SCH (21:00)
[2017-02-19] MEDS: Budesonide/Formoterol 80/4.5 MDI IH SCH (21:43)
[2017-02-20 00:53] LABS: Basophils # 0.1 K/mcL (0.0-0.2); Basophils % 0.7 %; Eosinophils # 0.2 K/mcL (0.0-0.6); Eosinophils % 2.8 %; Hematocrit 42.5 % (35.3-44.9); Hemoglobin 14.2 g/dL (11.5-15.4); Immature Granulocytes % 0.3 % (0-4); Lymphocytes # 3.5 K/mcL (0.6-4.6); Lymphocytes % 45.5 %; Mean Corpuscular HGB Conc 33.4 g/dL (31.6-35.5); Mean Corpuscular Hemoglobin 30.8 pg (28.0-33.3); Mean Corpuscular Volume 92.2 fL (83.0-100.0); Mean Platelet Volume 8.5 fL (9.4-12.4); Monocytes # 0.6 K/mcL (0.0-1.3); Monocytes % 7.4 %; Neutrophils # 3.3 K/mcL (1.6-8.9); Platelet Count 288 K/mcL (140-400); Red Blood Count 4.61 M/mcL (3.82-4.97); Red Cell Distribution Width 14.1 % (11.5-14.5); Segmented Neutrophils % 43.3 %
[2017-02-20 01:08] LABS: BUN/Creatinine Ratio 10 (6-26); Blood Urea Nitrogen 10 mg/dL (7-20); Carbon Dioxide 27 mEq/L (19-29); Chloride 106 mEq/L (98-109); Chol/HDL Ratio 3.4 (0-4.9); Cholesterol 120 mg/dL (< 200); Glucose 147 mg/dL (70-99); HDL Cholesterol 35 mg/dL (40-59); LDL Cholesterol,Calculated 59 mg/dL (0-99); Magnesium 1.9 mg/dL (1.6-2.6); Osmolality,Calculated 290 (280-300); Potassium 3.8 mEq/L (3.5-4.5); Sodium 139 mEq/L (136-145); Triglycerides 130 mg/dL (< 150); eGFR For African Americans > 60 (> 60); eGFR For Non-African Americans 56 (> 60)
[2017-02-20] MEDS: Insulin LISPRO 300 UNITS/3 ML VIAL SQ SCH ×2 (07:28→12:26)
[2017-02-20] MEDS ORDERED: Aspirin Enteric Coated 81 MG Tablet PO SCH (09:00)
[2017-02-20] MEDS ORDERED: Azithromycin 250 MG TABLET PO SCH (09:00)
[2017-02-20] MEDS ORDERED: FLUoxetine 20 MG CAPSULE PO SCH (09:00)
[2017-02-20] MEDS ORDERED: Multivit/Ca/Min/Fe/FA 1 TAB TABLET PO SCH (09:00)
[2017-02-20] MEDS ORDERED: Topiramate 100 MG TABLET PO SCH (09:00)
--- NOTE | 2017-02-20 11:08 | Discharge Summary ---
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 insulin use: without termite control representative use Qualified Code(s): E11.9 - Type 2 diabetes mellitus without complications (4) Hypothyroidism Priority: Secondary Status: Chronic Qualifiers: Hypothyroidism type: acquired Qualified Code(s): E03.9 - Hypothyroidism, unspecified (5) Mixed connective tissue disease Priority: Secondary Status: Chronic (6) Dyslipidemia Priority: Secondary Status: Chronic (7) Obesity (BMI 30-39.9) Priority: Secondary Status: Chronic (8) GERD (gastroesophageal reflux disease) Priority: Secondary Status: Chronic Qualifiers: Esophagitis presence: esophagitis presence not specified Qualified Code(s) : K21.9 - Gastro-esophageal reflux disease without esophagitis (9) CAD (coronary artery disease) Priority: Secondary Status: Chronic Qualifiers: Coronary Disease-Associated Artery/Lesion type: [place] artery [place] vs. transplanted heart: [place] heart Associated angina: without angina Qualified Code(s): I25.10 - Atherosclerotic heart disease of [place] coronary artery without angina pectoris (10) Tobacco abuse Priority: Secondary Status: Chronic - Discharge Medications Home Medications: Albuterol Sulfate [Albuterol Inhaler] 2 puff IH Q6HR PRN 07/09/16 [History] Aspirin [Lo-Dose Aspirin EC] 81 mg PO DAILY 07/09/16 [History] Hydroxychloroquine [Plaquenuil] 200 mg PO BID 07/09/16 [History] Levothyroxine [Synthroid] 50 mcg PO QAM 07/09/16 [History] SitaGLIPtin [Januvia] 100 mg PO DAILY 07/09/16 [History] Atorvastatin [Lipitor] 40 mg PO HS #60 tablet 08/07/16 [Rx] Ergocalciferol (VITAMIN D2) [Vitamin D2] 50,000 unit PO QWEEK 01/06/17 [History] FLUoxetine HCl [Prozac] 40 mg PO QAM #30 capsule 01/11/17 [Rx] Omeprazole [PriLOSEC] 40 mg PO DAILY@0630 #30 capsule. 01/11/17 [Rx] Topiramate [Topamax] 200 mg PO DAILY #30 tablet 01/11/17 [Rx] Trazodone HCl 100 mg PO HS #30 tablet 01/11/17 [Rx] Azithromycin [Zithromax] 250 mg PO DAILY 02/19/17 [History] Fluticasone/Salmeterol [Advair 250-50 Diskus] 1 puff IH BID 02/19/17 [History] Multivitamin [Multi-Day Vitamins] 1 tab PO DAILY 02/19/17 [History] Multivits Min/Iron/FA/Herb#186 [Hair, Skin and Nails Caplet] 1 tab PO DAILY [History] Nicotine Patch [Nicoderm] 14 mg TD Q24H 02/20/17 [Rx] Allergies/Adverse Reactions: Allergies carbamazepine [From Tegretol] Allergy (Verified 08/11/16 20:11) See Comments UNABLE TO VERIFY REACTION- NOT LISTED ON PATIENT'S ECW LAST APPT. AND PATIENT UNABLE TO CONFIRM- ALL ALLERGIES/REACTIONS OBTAINED FROM PATIENT'S PCP: DR. VELEZ divalproex sodium [From Depakote] Allergy (Verified 08/11/16 20:11) See Comments UNABLE TO VERIFY REACTION- NOT LISTED ON PATIENT'S ECW LAST APPT. AND PATIENT UNABLE TO CONFIRM- ALL ALLERGIES/REACTIONS OBTAINED FROM PATIENT'S PCP: DR. VELEZ [place] Allergy (Verified 08/11/16 20:11) See Comments UNABLE TO VERIFY REACTION- NOT LISTED ON PATIENT'S ECW LAST APPT. AND PATIENT UNABLE TO CONFIRM- ALL ALLERGIES/REACTIONS OBTAINED FROM PATIENT'S PCP: DR. VELEZ meloxicam [From Mobic] Allergy (Verified 08/11/16 20:11) See Comments UNABLE TO VERIFY REACTION- NOT LISTED ON PATIENT'S ECW LAST APPT. AND PATIENT UNABLE TO CONFIRM- ALL ALLERGIES/REACTIONS OBTAINED FROM PATIENT'S PCP: DR. VELEZ phenytoin [From Dilantin] Allergy (Verified 08/11/16 20:11) See Comments UNABLE TO VERIFY REACTION- NOT LISTED ON PATIENT'S ECW LAST APPT. AND PATIENT UNABLE TO CONFIRM- ALL ALLERGIES/REACTIONS OBTAINED FROM PATIENT'S PCP: DR. VELEZ tramadol [From Ultram] Allergy (Verified 08/11/16 20:11) See Comments UNABLE TO VERIFY REACTION- NOT LISTED ON PATIENT'S ECW LAST APPT. AND PATIENT UNABLE TO CONFIRM- ALL ALLERGIES/REACTIONS OBTAINED FROM PATIENT'S PCP: DR. VELEZ methocarbamol [From Robaxin] Adverse Reaction (Verified 08/11/16 20:11) Dizziness NSAIDS (Non-Steroidal Anti-Inflamma Adverse Reaction (Verified 08/11/16 20:11) See Comments ELEVATED LIVER ENZYMES Procedures/tests Complete & Pending: Procedures Performed prior 72 hours Category Date Time Status EV echocardiogram Routine Y 02/19/17 15:34 Completed Date of admission: 02/19/17 13:56 Primary care physician: Mainor Ardon DO Discharging clinician: Scar Vasquez Anticipated date of discharge: 02/20/17 - Patient Status Disposition: Home, Self-Care Condition: Good Functional capacity at discharge: independent ambulation Overall status at discharge: patient is progressing back to baseline - Discharge Instructions Instructions: Chest Pain (DC), Depression (DC), Hypothyroidism (DC), Diabetes Mellitus Type 2 in Adults (DC), Chronic Obstructive Pulmonary Disease (DC) Follow Up With: Mainor Ardon DO [Primary Care Provider] - - Diet and Activity Activity: resume usual activities as tolerated Diet: diabetic diet, low fat, low cholesterol, low salt diet Interval History: See below Hospital course: Ms. Ash is a 51 year old female with PMH of PTSD, depression, bipolar disorder, DM , Hypothyroidism, mixed CTD She presented with multiple complains including chest pain and headache, neck pain, lower extremity pain Patient has had multiple psychiatric hospitalizations and admissions for chest pain in the past. Work up on this admission showed Troponins negative X3, EKG and CXR unremarkable , Head CT unremarkable. At time of review,she denied any complains, and stated she has not had chest pain since her arrival to the hospital Her physical exam is unremarkable and she was ambulatory She had a negative stress test in 07/2016 Her ECHo showed no wall motion abnormalities, LV mild diastolis dysfuntion. No valvular abnormalities Patient is educated and reassured and is stable for discharge to follow up with PCP, Psychiatrist No changed have been made to her medications She is counselled on tobacco cessation for 3 minutes Time spent discussing smoking cessation with patient: 3 to 10 minutes - Time Spent with Patient Total time spent providing and/or coordinating discharge services: Less than 30 minutes - Constitutional Vitals: Temp Pulse Resp BP Pulse Ox 98.0 F 82 14 122/81 92 02/20/17 07:08 02/20/17 07:08 02/20/17 07:08 02/20/17 07:08 02/20/17 07:30 General appearance: Present: A&O X 3, pleasant, no acute distress, answers questions appropriately - Head Head exam: Present: atraumatic, normocephalic - Eye Eye exam: Present: PERRL, conjuntiva pink, sclera anicteric Pupils: Present: PERRL - Neck Neck exam general surgery: Present: supple, trachea midline. Absent: lymphadenopathy - Respiratory Respiratory exam: Present: CTAB. Absent: accessory muscle use, rales, rhonchi, wheezes - Cardiovascular Cardiovascular exam: Present: RRR, +S1, +S2. Absent: diastolic murmur, gallop, rubs, systolic murmur - GI/Abdominal GI/Abdominal exam: Present: normal bowel sounds, soft, no peritoneal signs. Absent: distended, tenderness - Extremities Exam Extremities exam: Present: warm, radial pulses palpable and symetrical. Absent : calf tenderness, cyanotic, pedal edema - Neurological Exam Neurological exam: Present: alert, CN II-XII intact, oriented X3, no focal deficits. Absent: pronater drift, facial droop, speech deficit - Skin Skin exam: Present: dry, intact - VTE Reasons for not Prescribing Prophylaxis: Treatment not Indicated - Low risk for VTE
[2017-02-20 11:15] VITALS: BP 120/79
[2017-02-20] MEDS: Budesonide/Formoterol 80/4.5 MDI IH SCH (12:24)
--- NOTE | 2017-02-20 14:03 | Physician Discharge Referral ---
Home Health/Hosp Referral Info Transfer to: Home Health Attending Provider: Pedro Provider in Charge Post Discharge: PCP - Diagnosis (1) Chest pain Priority: Primary Status: Acute (2) Bipolar disorder Priority: Secondary Status: Chronic (3) Diabetes mellitus Priority: Secondary Status: Chronic (4) Hypothyroidism Priority: Secondary Status: Chronic (5) Mixed connective tissue disease Priority: Secondary Status: Chronic (6) Dyslipidemia Priority: Secondary Status: Chronic (7) Obesity (BMI 30-39.9) Priority: Secondary Status: Chronic (8) GERD (gastroesophageal reflux disease) Priority: Secondary Status: Chronic (9) CAD (coronary artery disease) Priority: Secondary Status: Chronic (10) Tobacco abuse Priority: Secondary Status: Chronic - Respiratory Orders Smoking Cessation: Smoking cessation has been advised. For more information, call the [place] [employer] Quit Line at 4-763-RDLE-NOW. - Diet/Nutrition Diet/Nutrition Orders: Cardiac, No Concentrated Sweets - Services Needed Following services are medically necessary services: Nursing, Home Health Aide - Transfer Medications Home Medications: Albuterol Sulfate [Albuterol Inhaler] 2 puff IH Q6HR PRN 07/09/16 [History] Aspirin [Lo-Dose Aspirin EC] 81 mg PO DAILY 07/09/16 [History] Hydroxychloroquine [Plaquenuil] 200 mg PO BID 07/09/16 [History] Levothyroxine [Synthroid] 50 mcg PO QAM 07/09/16 [History] SitaGLIPtin [Januvia] 100 mg PO DAILY 07/09/16 [History] Atorvastatin [Lipitor] 40 mg PO HS #60 tablet 08/07/16 [Rx] Ergocalciferol (VITAMIN D2) [Vitamin D2] 50,000 unit PO QWEEK 01/06/17 [History] FLUoxetine HCl [Prozac] 40 mg PO QAM #30 capsule 01/11/17 [Rx] Omeprazole [PriLOSEC] 40 mg PO DAILY@0630 #30 capsule. 01/11/17 [Rx] Topiramate [Topamax] 200 mg PO DAILY #30 tablet 01/11/17 [Rx] Trazodone HCl 100 mg PO HS #30 tablet 01/11/17 [Rx] Azithromycin [Zithromax] 250 mg PO DAILY 02/19/17 [History] Fluticasone/Salmeterol [Advair 250-50 Diskus] 1 puff IH BID 02/19/17 [History] Multivitamin [Multi-Day Vitamins] 1 tab PO DAILY 02/19/17 [History] Multivits Min/Iron/FA/Herb#186 [Hair, Skin and Nails Caplet] 1 tab PO DAILY [History] Nicotine Patch [Nicoderm] 14 mg TD Q24H 02/20/17 [Rx] Allergies/Adverse Reactions: Allergies carbamazepine [From Tegretol] Allergy (Verified 08/11/16 20:11) See Comments UNABLE TO VERIFY REACTION- NOT LISTED ON PATIENT'S ECW LAST APPT. AND PATIENT UNABLE TO CONFIRM- ALL ALLERGIES/REACTIONS OBTAINED FROM PATIENT'S PCP: DR. VELEZ divalproex sodium [From Depakote] Allergy (Verified 08/11/16 20:11) See Comments UNABLE TO VERIFY REACTION- NOT LISTED ON PATIENT'S ECW LAST APPT. AND PATIENT UNABLE TO CONFIRM- ALL ALLERGIES/REACTIONS OBTAINED FROM PATIENT'S PCP: DR. VELEZ [place] Allergy (Verified 08/11/16 20:11) See Comments UNABLE TO VERIFY REACTION- NOT LISTED ON PATIENT'S ECW LAST APPT. AND PATIENT UNABLE TO CONFIRM- ALL ALLERGIES/REACTIONS OBTAINED FROM PATIENT'S PCP: DR. VELEZ meloxicam [From Mobic] Allergy (Verified 08/11/16 20:11) See Comments UNABLE TO VERIFY REACTION- NOT LISTED ON PATIENT'S ECW LAST APPT. AND PATIENT UNABLE TO CONFIRM- ALL ALLERGIES/REACTIONS OBTAINED FROM PATIENT'S PCP: DR. VELEZ phenytoin [From Dilantin] Allergy (Verified 08/11/16 20:11) See Comments UNABLE TO VERIFY REACTION- NOT LISTED ON PATIENT'S ECW LAST APPT. AND PATIENT UNABLE TO CONFIRM- ALL ALLERGIES/REACTIONS OBTAINED FROM PATIENT'S PCP: DR. VELEZ tramadol [From Ultram] Allergy (Verified 08/11/16 20:11) See Comments UNABLE TO VERIFY REACTION- NOT LISTED ON PATIENT'S ECW LAST APPT. AND PATIENT UNABLE TO CONFIRM- ALL ALLERGIES/REACTIONS OBTAINED FROM PATIENT'S PCP: DR. VELEZ methocarbamol [From Robaxin] Adverse Reaction (Verified 08/11/16 20:11) Dizziness NSAIDS (Non-Steroidal Anti-Inflamma Adverse Reaction (Verified 08/11/16 20:11) See Comments ELEVATED LIVER ENZYMES Certification: Further, I certify that my clinical findings support that this patient is homebound (i.e. absences from home require considerable and taxing effort and are for medical reasons or episcopal services or infrequently or short duration when for other reasons) because: Homebound Reason: Patient requires assistance of a person or device to safely leave home Attestation: My signature below is to certify that this patient is under my care and that I, or nurse practitioner, or a physician's surgical services assistant working with me, has a face-to -face encounter with this patient.
--- NOTE | 2017-02-22 06:17 | Electrocardiograph Report ---
[place] [id number] Test Date: 2017-02-19 Pat Name: Aiyana Ash Department: 104 Room: 3B Gender: F Lisw: EULA : 1965 Requested By: Shimon Vail Order Number: [id number] Reading MD: Pepe Adler MD Measurements Intervals [place] Rate: 80 P: 12 GA: 164 QRS: 18 QRSD: 91 T: 5 QT: 410 QTc: 447 Interpretive Statements SINUS RHYTHM Electronically Signed On 02-22-2017 6:16:28 EDT by Pepe Adler MD
== END 2017-02-20 12:42 | disposition home or self-care (01) ==
LOC: 3BNU 11:38 → EMEROO 11:38 → 3BNU 13:58
PROVIDERS: ADMIT Internal Medicine; ATTEND Nurse Practitioner Family

== ENCOUNTER 2017-06-18 10:21 | Inpatient (IN) ==
[2017-06-18] MEDS ORDERED: Ipratropium/Albuterol Neb 3 ML IH ONE (10:32)
[2017-06-18 10:48] LABS: Basophils % 0.2 %; Eosinophils % 0.1 %; Hematocrit 43.4 % (35.3-44.9); Hemoglobin 14.6 g/dL (11.5-15.4); Immature Granulocytes % 0.8 % (0-4); Lymphocytes # 1.4 K/mcL (0.6-4.6); Lymphocytes % 9.6 %; Mean Corpuscular HGB Conc 33.6 g/dL (31.6-35.5); Mean Corpuscular Hemoglobin 30.9 pg (28.0-33.3); Mean Corpuscular Volume 91.9 fL (83.0-100.0); Mean Platelet Volume 8.1 fL (9.4-12.4); Monocytes # 0.9 K/mcL (0.0-1.3); Monocytes % 6.2 %; Neutrophils # 12.1 K/mcL (1.6-8.9); Platelet Count 354 K/mcL (140-400); Red Blood Count 4.72 M/mcL (3.82-4.97); Red Cell Distribution Width 13.9 % (11.5-14.5); Segmented Neutrophils % 83.1 %
[2017-06-18 11:01] LABS: BUN/Creatinine Ratio 15 (6-26); Blood Urea Nitrogen 13 mg/dL (7-20); Calcium 8.6 mg/dL (8.6-10.8); Carbon Dioxide 20 mEq/L (19-29); Chloride 109 mEq/L (98-109); Glucose 212 mg/dL (70-99); Osmolality,Calculated 292 (280-300); Potassium 3.7 mEq/L (3.5-4.5); Sodium 138 mEq/L (136-145); eGFR For African Americans > 60 (> 60); eGFR For Non-African Americans > 60 (> 60)
[2017-06-18] MEDS ORDERED: 0.9 % Sodium Chloride 1,000 ML IVC ONE (11:34)
[2017-06-18] MEDS ORDERED: methylPREDNISolone 125 MG/2 ML VIAL IVP ONE (11:34)
--- NOTE | 2017-06-18 13:29 | Emergency Department Note ---
Disposition Clinical Impression: COPD exacerbation, SOB (shortness of breath), Requires supplemental oxygen Disposition: Admitted As Inpatient General Adult HPI - General Chief complaint: ED Shortness of Breath/Dyspnea Stated complaint: pneumonia Time Seen by Provider: 06/18/17 10:29 Source: patient Limitations: no limitations Nursing Notes Reviewed: Yes Vital Signs Reviewed: Yes - History of Present Illness HPI Narrative: 51-year-old female past medical history of COPD and recent diagnosis of COPD exacerbation by urgent care in which she was given Levaquin, prednisone for outpatient management presents to the emergency department with increasing shortness of breath, and cough. Patient states that she is not on any nasal cannula oxygen at home. Patient denies any history of blood clot, hemoptysis, unilateral leg swelling, history of cancer, but does admit to having a recent operation to have a spinal stimulator removed. Pain Scale: 0 - Related Data Home Medications Medication Instructions Recorded Confirmed Aspirin [Lo-Dose Aspirin EC] 81 mg PO DAILY 07/09/16 06/18/17 Hydroxychloroquine [Plaquenuil] 200 mg PO BID 07/09/16 06/18/17 Levothyroxine [Synthroid] 50 mcg PO QAM 07/09/16 06/18/17 Ergocalciferol (VITAMIN D2) 50,000 unit PO QWEEK 01/06/17 06/18/17 [Vitamin D2] Omeprazole [PriLOSEC] 40 mg PO DAILY 05/27/17 06/18/17 Topiramate [Topamax] 100 mg PO BID 05/27/17 06/18/17 Guaifenesin/Dm/Pseudoephedrine 1 tab PO Q6H PRN 06/18/17 06/18/17 [Capmist Dm Tablet] guaiFENesin [Guaifenesin] 10 ml PO Q6H PRN 06/18/17 06/18/17 levoFLOXacin [Levofloxacin] 750 mg PO DAILY 06/18/17 06/18/17 Previous Rx's Medication Instructions Recorded Atorvastatin [Lipitor] 40 mg PO HS #60 tablet 08/07/16 Trazodone HCl 100 mg PO HS #30 tablet 01/11/17 Loratadine [Allergy Relief] 10 mg PO DAILY #30 tablet 05/26/17 FLUoxetine HCl [Prozac] 40 mg PO DAILY #60 capsule 06/02/17 Ziprasidone [Geodon] 80 mg PO BID #60 capsule 06/02/17 Allergies Allergy/AdvReac Type Severity Reaction Status Date / Time carbamazepine [From Tegretol] Allergy See Verified 06/18/17 10:25 Comments divalproex sodium Allergy See Verified 06/18/17 10:25 [From Depakote] Comments [place] Allergy See Verified 06/18/17 10:25 Comments meloxicam [From Mobic] Allergy See Verified 06/18/17 10:25 Comments phenytoin [From Dilantin] Allergy See Verified 06/18/17 10:25 Comments tramadol [From Ultram] Allergy See Verified 06/18/17 10:25 Comments methocarbamol [From Robaxin] AdvReac Dizziness Verified 06/18/17 10:25 NSAIDS (Non-Steroidal AdvReac See Verified 06/18/17 10:25 Anti-Inflamma Comments All systems ED: reviewed and negative except as stated. Review of Systems: As Per HPI Constitutional: Reports: fever Respiratory: Reports: cough, dyspnea, wheezes, sputum production. Denies: hemoptysis Musculoskeletal: Denies: back pain Past Medical History - Past Medical History Medical history: Reports: arthritis, asthma, COPD, coronary artery disease, fibromyalgia, GERD, hyperlipidemia, hypertension, migraine, RA, thyroid disease , TIA, other Surgical history: Reports: appendectomy, hysterectomy, orthopedic, other, VIKI/ BSO Psychiatric history: Reports: bipolar, depression, prior suicide attempt, previous psychiatric hospitalization - Social History Smoking Status: Current every day smoker Smokeless Tobacco Status: No Alcohol use: Reports: none Drug use: Reports: none Physical Exam General: 51-year-old female who appears to be in moderate respiratory distress, bent over, tachypneic, tachycardic Head: autraumatic, EOMI, no conjuncitval pallor, no scleral icterus, Mouth: oral mucous membranes moist Neck: neck soft, trachea midline Chest:: Equal chest wall rise Lungs: Decreased breath sounds on the right lower lobe, diffuse rhonchi Heart: normal heart sounds, tachycardia and rhythm, Abdomen: soft, non-tender, no rigidity, no guarding, no rebdound tenderness Lower Extremities: no pedal edema, calves non-tender Integumentary: Skin warm, dry, and intact Neuro: Alert Psych: normal affect, normal mood - General Limitations: no limitations General appearance: alert, in no apparent distress Course Vital Signs Temperature 97.5 F L 06/18/17 10:26 Pulse Rate 102 06/18/17 10:26 Respiratory Rate 18 06/18/17 10:26 Blood Pressure 129/82 06/18/17 10:26 O2 Sat by Pulse Oximetry 94 06/18/17 10:26 Temperature 97.7 F 06/18/17 18:36 Pulse Rate 97 06/18/17 18:36 Respiratory Rate 20 06/18/17 18:36 Blood Pressure 124/85 06/18/17 18:36 O2 Sat by Pulse Oximetry 97 06/18/17 18:36 Oxygen Delivery Oxygen Delivery Room Air Medical Decision Making - MDM Narrative Medical decision making narrative: 51-year-old female presents to the emergency department with what appears to be acute respiratory distress. Oxygen saturation initially was 94% on 2 L of oxygen via nasal cannula. Patient does admit having COPD and recent diagnosis of a COPD exacerbation and pneumonia in our urgent care clinic. There was concern for possible blood clot in the lung. We did obtain a d-dimer and this was not elevated. However, due to lack of a positive chest x-ray revealing pneumonia, it became more apparent that the patient was at moderate to high risk of having a pulmonary embolus as she was tachycardic, had a recent surgery , oxygen saturation was below 95%. CTA of the chest was obtained and this did not reveal any pneumonia or coronary embolus. While talking to the patient about her negative workup in the emergency department, her oxygen saturation went to about 90% in conversation while on 2 L. As this patient does not have any oxygen at home, I think it is important to admit this patient for an exacerbation of COPD as this patient is obviously failed outpatient management and has a new oxygen requirement. I fear that if we sent her home she could bounce back to our emergency department again with worsening symptoms. I spoke with the hospitalist regarding my concern he agreed to accept the patient for admission. I spoke with the patient as well and she agreed to be admitted to the hospital. Patient was hemodynamically stable and not in any acute distress while on 2 L of nasal cannula. Patient was provided 125 mg of Solu-Medrol here in the emergency Department as well as 3 DuoNebs. Patient stated that these helped her feel a little better and improved her aeration, however clinically, she still appeared to be short of breath. Patient does have a leukocytosis here in the emergency department of 40.6. I think this may be due to just therefore she has been given as she has been on prednisone for the past few days. Chest X-Ray 06/18/17 10:32 IMPRESSION: Mild cardiomegaly. No acute cardiopulmonary process. D/ / 06/18/2017 11:37:54 Ashish Patel MD / [facility] Interpreting Provider: Ashish Patel MD Chest CTA 06/18/17 11:34 IMPRESSION: 1. No CT evidence of a pulmonary embolism. 2. No acute abnormality of the thoracic aorta. 3. No acute intrapulmonary findings. 4. Multiple stable scattered subcentimeter pulmonary nodules throughout both lungs demonstrate near 1 year of stability, most consistent with a benign granuloma. D/ / 06/18/2017 13:17:54 Baljit Morales MD / [facility] Interpreting Provider: Baljit Morales MD Vital Signs Temperature 97.5 F L 06/18/17 10:26 Pulse Rate 102 06/18/17 10:26 Respiratory Rate 18 06/18/17 10:26 Blood Pressure 129/82 06/18/17 10:26 O2 Sat by Pulse Oximetry 94 06/18/17 10:26 Temperature 97.7 F 06/18/17 18:36 Pulse Rate 97 06/18/17 18:36 Respiratory Rate 20 06/18/17 18:36 Blood Pressure 124/85 06/18/17 18:36 O2 Sat by Pulse Oximetry 97 06/18/17 18:36 Oxygen Delivery Oxygen Delivery Room Air - Medical Records Medical records reviewed: Yes I reviewed the patient's medical records. - Lab Data Lab results reviewed: Yes I reviewed the patient's lab results. Result diagrams: 06/18/17 10:40 06/18/17 10:40 Lab Results 06/18/17 06/18/17 06/18/17 Range/Units 10:40 10:40 10:40 WBC 14.6 H (4.3-11.1) K/mcL RBC 4.72 (3.82-4.97) M/mcL Hgb 14.6 (11.5-15.4) g/dL Hct 43.4 (35.3-44.9) % MCV 91.9 (83.0-100.0) fL MCH 30.9 (28.0-33.3) pg MCHC 33.6 (31.6-35.5) g/dL RDW 13.9 (11.5-14.5) % Plt Count 354 (140-400) K/mcL MPV 8.1 L (9.4-12.4) fL Immature Gran % 0.8 (0-4) % Seg Neutrophils % 83.1 % Lymphocytes % 9.6 % Monocytes % 6.2 % Eosinophils % 0.1 % Basophils % 0.2 % Neutrophils # 12.1 H (1.6-8.9) K/mcL Lymphocytes # 1.4 (0.6-4.6) K/mcL Monocytes # 0.9 (0.0-1.3) K/mcL Eosinophils # 0.0 (0.0-0.6) K/mcL Basophils # 0.0 (0.0-0.2) K/mcL D-Dimer 406 (0-500) ng/mLFEU Sodium 138 (136-145) mEq/L Potassium 3.7 (3.5-4.5) mEq/L Chloride 109 (98-109) mEq/L Carbon Dioxide 20 (19-29) mEq/L BUN 13 (7-20) mg/dL Creatinine 0.85 (0.57-1.11) mg/dL Est GFR ( Amer) > 60 (> 60) Est GFR (Non-Af Amer) > 60 (> 60) BUN/Creatinine Ratio 15 (6-26) Glucose 212 H (70-99) mg/dL Calculated Osmolality 292 (280-300) Calcium 8.6 (8.6-10.8) mg/dL Troponin I (0-0.03) ng/mL 06/18/17 Range/Units 10:40 WBC (4.3-11.1) K/mcL RBC (3.82-4.97) M/mcL Hgb (11.5-15.4) g/dL Hct (35.3-44.9) % MCV (83.0-100.0) fL MCH (28.0-33.3) pg MCHC (31.6-35.5) g/dL RDW (11.5-14.5) % Plt Count (140-400) K/mcL MPV (9.4-12.4) fL Immature Gran % (0-4) % Seg Neutrophils % % Lymphocytes % % Monocytes % % Eosinophils % % Basophils % % Neutrophils # (1.6-8.9) K/mcL Lymphocytes # (0.6-4.6) K/mcL Monocytes # (0.0-1.3) K/mcL Eosinophils # (0.0-0.6) K/mcL Basophils # (0.0-0.2) K/mcL D-Dimer (0-500) ng/mLFEU Sodium (136-145) mEq/L Potassium (3.5-4.5) mEq/L Chloride (98-109) mEq/L Carbon Dioxide (19-29) mEq/L BUN (7-20) mg/dL Creatinine (0.57-1.11) mg/dL Est GFR ( Amer) (> 60) Est GFR (Non-Af Amer) (> 60) BUN/Creatinine Ratio (6-26) Glucose (70-99) mg/dL Calculated Osmolality (280-300) Calcium (8.6-10.8) mg/dL Troponin I 0.01 (0-0.03) ng/mL - Radiology Data Radiology results reviewed: Yes I reviewed the patient's radiology results. - EKG Data EKG #1 EKG attestation: Yes I reviewed and interpreted this EKG. EKG results narrative: EKG #110:48 Ventricular rate 99 bpm, [place] interval 156 seconds, QRS duration 94 ms, QT 381 segs, QTC 437 ms, normal axis. Sinus rhythm with a ventricular rate of 99 bpm. There is no evidence of any ischemic changes noted on this electrocardiogram. This echocardiogram was in comparison to one performed on June 13, 2017. EKG #2 Ventricular rate 92 bpm, [place] interval 156, seconds, QRS duration 89 ms, QT 385 ms , QTC 435 ms There is a new Q-wave in lead 3 with T-wave inversion in lead 3 and is not on the previous electrocardiogram today. This is nonspecific and nondiagnostic in nature. Attestation Statement - Attestation Attestation: I, Bryon Zuniga DO, examined this patient [id number] and my medical decision-making was reviewed with Dr. Trent Barron, Resident Physician. I agree with the documented findings, disposition and treatment plan as described except to the extent set forth below. Please see my progress notes for details. 51-year-old female presents emergency room for evaluation of shortness of breath. Patient has been seen once in the emergency room a week ago as well as as an outpatient at an urgent care for similar issues. One week ago she had a pump removed from her back. The surgical procedure was uncomplicated. She had detailed workup completed at that time in the emergency room and discharged home. The last several days she went to an urgent care for productive cough shortness of breath and sputum should start on antibiotics and treated for pneumonia. Patient does have baseline COPD. Detailed workup and evaluation completed today looking for pulmonary emboli, source of hypoxia, cardiac related disease in source. Patient does have persistence of hypoxia in the emergency room. She does not use oxygen at home. Currently she has responded to breathing treatments but is still tachycardic and tachypnea Times. Angiography completed eliminating the risk of pulmonary emboli at this point. Lungs do not show any acute signs of focal consolidation or infection. Patient will be treated symptomatically and admitted for what appears to be a failed outpatient treatment of COPD exacerbation along with shortness of breath and tachycardia. Patient is otherwise resting comfortably in the bed no distress at this time. See detailed documentation of physical exam, medical intervention , medical decision-making and disposition and the resident physician's note. No critical care was applied to this patient during this treatment course and evaluation.
--- NOTE | 2017-06-18 18:17 | Internal Med History&Physical ---
Date of Encounter: 06/18/17 Time of Encounter: 18:13 Assessment and Plan (1) Acute and chronic respiratory failure with hypoxia Current visit: No Status: Acute From COPD exacerbation (2) COPD exacerbation Current visit: Yes Status: Acute Failed to respond to antibiotics and corticosteroids as an outpatient setting. I did review a recent ED visit for psychosis on 06/02, which notes patient was compliant with her medications. This could be medication non-compliance in regards to COPD. She is afebrile with a mild leukocytosis of 14, possibly from steroids. Her X-ray and CTA chest are both negative. Suspect this could be a COPD trigger not associated with infection or a viral process. - Continue Prednisone 40 mg daily - Emperic therapy with Rocephin/Azithromycin - Follow-up sputum/blood cultures, check flu a/b, strep/legionella antigens, mycoplasma Ig - Scheduled Duo Nebs - Follow-up procalcitonin which could be helpful in determining if this is a bacterial infection. (3) Anxiety Current visit: No Status: Acute (4) Bipolar disorder Current visit: No Status: Chronic Recently seen in ED on 06/02 for bizzar behavior and paranoia. Will continue medications that she was recently discharged on. Qualifiers: Active/Remission status: currently active Current bipolar episode type: depressed Current episode severity: severe Psychotic features: with psychotic features Qualified Code(s): F31.5 - Bipolar disorder, current episode depressed, severe, with psychotic features (5) CAD (coronary artery disease) Current visit: No Status: Chronic On lipitor and aspirin Qualifiers: Coronary Disease-Associated Artery/Lesion type: [place] artery [place] vs. transplanted heart: [place] heart Associated angina: without angina Qualified Code(s): I25.10 - Atherosclerotic heart disease of [place] coronary artery without angina pectoris (6) Diabetes mellitus Current visit: No Status: Chronic Diabetic diet and low dose sliding scale. Qualifiers: Diabetes mellitus type: type 2 Diabetes mellitus complication status: without complication Diabetes mellitus assisted insulin use: without intermediate card tender use Qualified Code(s): E11.9 - Type 2 diabetes mellitus without complications (7) Dyslipidemia Current visit: No Status: Chronic on lipitor, diet is cardiac/diabetic (8) GERD (gastroesophageal reflux disease) Current visit: No Status: Chronic continue ppi Qualifiers: Esophagitis presence: esophagitis presence not specified Qualified Code(s) : K21.9 - Gastro-esophageal reflux disease without esophagitis (9) Hypothyroidism Current visit: No Status: Chronic Continue levothyroxin Qualifiers: Hypothyroidism type: acquired Qualified Code(s): E03.9 - Hypothyroidism, unspecified (10) Tobacco abuse Current visit: No Status: Chronic Will offer patient nicotine patch if needed. We did have a brief discussion on smoking cessation and relation to COPD. Internal Medicine - H&P: HPI Chief complaint: Dyspnea Admitted From: Home Plans for Post Hospital Care: Home History of present illness: Patient is a 51 year old female with history of COPD who presented for dyspnea. She initially had complains of non-productive cough and fevers and chills, this progressively lead to dyspnea within past day. She was treated for exacerbation recently as OP with Levaquin and Prednisone. She is a current smoker. She denies chest pain, nausea/vomiting, diaphoresis, leg swelling, orthopnea, tachypnea, palpitations, hemoptysis, sick contacts. She had an echo done in 02/2017 which showed normal EF and wall motion. In the ED a chest x-ray was negative and to rule out a PE, a CTA was done and was negative. Patient was treated with nebulizers and solumedrol. She does not require oxygen at home but in the ED she did become hypoxic with conversation even on 2 L NC. Past Med Surg Social Fam HX - Past Medical History Medical history: arthritis, asthma, COPD, coronary artery disease, fibromyalgia , GERD, hyperlipidemia, hypertension, migraine, RA, thyroid disease, TIA, other Psychiatric history: bipolar, depression, prior suicide attempt, previous psychiatric hospitalization - Past Surgical History Surgical History: appendectomy, hysterectomy, orthopedic, other, VIKI/BSO - Social History Smoking Status: Current every day smoker Smokeless Tobacco Status: No Alcohol use: none Drug use: none - Family History Mother Family Member Ethnicity: Unknown Living Status: Hx Family Cardiac Disorders: Yes (HTN) Hx Family Respiratory Disorders: No Hx Family Cancer: No Hx Family GI Disorders: Yes (ulcerative colitis) Hx Family Endocrine Disorder: No Hx Family Neuromuscular Disorders: Yes (fibromylagia) Hx Family Neurologic Disorders: Yes (brain anerysm) Hx Family HEENT Disorders: No Hx Family Autoimmune Disorders: No Father Family Member Ethnicity: Unknown Living Status: Still Living Hx Family Cardiac Disorders: Yes (I dont know) Hx Family Respiratory Disorders: No Hx Family Cancer: Yes (Stomach) Hx Family GI Disorders: No Hx Family Endocrine Disorder: Yes (diabetes) Hx Family Neuromuscular Disorders: No Hx Family Neurologic Disorders: No Hx Family HEENT Disorders: No Hx Family Autoimmune Disorders: No Internal Medicine - H&P: Meds Aspirin [Lo-Dose Aspirin EC] 81 mg PO DAILY 07/09/16 [History] Hydroxychloroquine [Plaquenuil] 200 mg PO BID 07/09/16 [History] Levothyroxine [Synthroid] 50 mcg PO QAM 07/09/16 [History] Atorvastatin [Lipitor] 40 mg PO HS #60 tablet 08/07/16 [Rx] Ergocalciferol (VITAMIN D2) [Vitamin D2] 50,000 unit PO QWEEK 01/06/17 [History] Trazodone HCl 100 mg PO HS #30 tablet 01/11/17 [Rx] Loratadine [Allergy Relief] 10 mg PO DAILY #30 tablet 05/26/17 [Rx] Omeprazole [PriLOSEC] 40 mg PO DAILY 05/27/17 [History] Topiramate [Topamax] 100 mg PO BID 05/27/17 [History] FLUoxetine HCl [Prozac] 40 mg PO DAILY #60 capsule 06/02/17 [Rx] Ziprasidone [Geodon] 80 mg PO BID #60 capsule 06/02/17 [Rx] Guaifenesin/Dm/Pseudoephedrine [Capmist Dm Tablet] 1 tab PO Q6H PRN 06/18/17 [ History] guaiFENesin [Guaifenesin] 10 ml PO Q6H PRN 06/18/17 [History] levoFLOXacin [Levofloxacin] 750 mg PO DAILY 06/18/17 [History] 3 Allergy/AdvReac Type Severity Reaction Status Date / Time carbamazepine [From Tegretol] Allergy See Verified 06/18/17 10:25 Comments divalproex sodium Allergy See Verified 06/18/17 10:25 [From Depakote] Comments [place] Allergy See Verified 06/18/17 10:25 Comments meloxicam [From Mobic] Allergy See Verified 06/18/17 10:25 Comments phenytoin [From Dilantin] Allergy See Verified 06/18/17 10:25 Comments tramadol [From Ultram] Allergy See Verified 06/18/17 10:25 Comments methocarbamol [From Robaxin] AdvReac Dizziness Verified 06/18/17 10:25 NSAIDS (Non-Steroidal AdvReac See Verified 06/18/17 10:25 Anti-Inflamma Comments All Systems PM: A 10-system review of systems was performed and is negative for pertinent findings except as documented above in the HPI. - Constitutional Constitutional: chills, fever(s) (subjective), no excessive sweating, no fatigue , no night sweats, no weakness, no weight gain - EENT Eyes: no change in vision Nose, mouth and throat: no change in voice, no dysphagia, no sore throat - Cardiovascular Cardiovascular ROS IM: no chest pain, no irregular heart rhythm - Respiratory Respiratory: cough, dyspnea, dyspnea on exertion, wheezing, no hemoptysis, no stridor, no pain on inspiration, no excessive phlegm production - Gastrointestinal Gastrointestinal: no abdominal pain, no diarrhea, no nausea, no vomiting - Musculoskeletal Musculoskeletal ROS IM: no numbness, no tingling - Integumentary Integumentary IM: no rash, no unusual bruising - Neurological Neurological ROS: no confusion, no convulsions, no focal weakness, no numbness, no tingling, no tremor(s) - Constitutional Vitals: Temp Pulse Resp BP Pulse Ox 97.5 F L 100 16 140/95 96 06/18/17 10:26 06/18/17 17:56 06/18/17 15:59 06/18/17 17:56 06/18/17 17:56 General appearance: Present: mild distress, A&O X 3 - Head Head exam: Present: atraumatic, normocephalic - Respiratory Respiratory exam: Present: decreased breath sounds. Absent: accessory muscle use, chest wall tenderness, prolonged expiratory phase, rales, wheezes, tachypnea - Cardiovascular Cardiovascular exam: Present: tachycardia. Absent: clicks, diastolic murmur, distant heart sounds - Extremities Exam Extremities exam: Present: warm, radial pulses palpable and symmetrical. Absent : calf tenderness, cyanotic, pedal edema Internal Med - H&P Results - Labs CBC & Chem 7: 06/18/17 10:40 06/18/17 10:40
[2017-06-18] MEDS ORDERED: Bupivacaine/EPI 1:200k 0.25%PF 30 ML VIAL ONE (18:25)
[2017-06-18] MEDS ORDERED: Acetaminophen 325 MG TABLET PO PRN (18:36)
[2017-06-18] MEDS ORDERED: Naloxone 0.4 MG/ML INJ IVP PRN (18:36)
--- NOTE | 2017-06-18 18:54 | Electrocardiograph Report ---
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
[2017-06-18] MEDS ORDERED: Ipratropium/Albuterol Neb 3 ML ONE (20:40)
[2017-06-18] MEDS: Ipratropium/Albuterol Neb 3 ML IH SCH (20:41)
[2017-06-18] MEDS ORDERED: GuaiFENesin Liq 200 MG/10 ML UDC PO PRN (20:46)
[2017-06-18] MEDS ORDERED: traZODone 50 MG TABLET PO SCH (21:00)
[2017-06-18] MEDS ORDERED: TRAZODONE HCL 100 MG PO SCH (21:00)
[2017-06-18] MEDS: Ziprasidone 80 MG CAPSULE PO SCH (21:23)
[2017-06-18] MEDS: traZODone 50 MG TABLET PO SCH (21:23)
[2017-06-18] MEDS: Azithromycin 250 MG TABLET PO SCH (21:23)
[2017-06-18] MEDS: cefTRIAXone 1,000 MG in Water for inj. (sterile) 10 ML IVP SCH (21:23)
[2017-06-18] MEDS: Topiramate 100 MG TABLET PO SCH (21:24)
[2017-06-19] MEDS: *HR* Enoxaparin 40 MG/0.4 ML SYRINGE SQ SCH (05:13)
[2017-06-19] MEDS: Ipratropium/Albuterol Neb 3 ML IH SCH ×4 (05:18→23:10)
[2017-06-19 06:43] LABS: Basophils % 0.1 %; Eosinophils % 0.1 %; Hematocrit 41.8 % (35.3-44.9); Hemoglobin 13.8 g/dL (11.5-15.4); Immature Granulocytes % 0.6 % (0-4); Lymphocytes # 2.8 K/mcL (0.6-4.6); Lymphocytes % 14.6 %; Mean Corpuscular Hemoglobin 30.6 pg (28.0-33.3); Mean Corpuscular Volume 92.7 fL (83.0-100.0); Mean Platelet Volume 8.4 fL (9.4-12.4); Monocytes # 1.4 K/mcL (0.0-1.3); Monocytes % 7.5 %; Neutrophils # 14.7 K/mcL (1.6-8.9); Platelet Count 364 K/mcL (140-400); Red Blood Count 4.51 M/mcL (3.82-4.97); Red Cell Distribution Width 14.3 % (11.5-14.5); Segmented Neutrophils % 77.1 %
[2017-06-19 06:56] LABS: BUN/Creatinine Ratio 15 (6-26); Blood Urea Nitrogen 11 mg/dL (7-20); Calcium 8.7 mg/dL (8.6-10.8); Carbon Dioxide 22 mEq/L (19-29); Chloride 110 mEq/L (98-109); Glucose 119 mg/dL (70-99); Osmolality,Calculated 293 (280-300); Potassium 3.8 mEq/L (3.5-4.5); eGFR For African Americans > 60 (> 60); eGFR For Non-African Americans > 60 (> 60)
[2017-06-19 06:58] LABS: Sodium 141 mEq/L (136-145)
[2017-06-19] MEDS: Cholecalciferol (D-3) 1,000 UNIT TABLET PO SCH (08:26)
[2017-06-19] MEDS: Ziprasidone 80 MG CAPSULE PO SCH ×2 (08:26→20:09)
[2017-06-19] MEDS: Aspirin Enteric Coated 81 MG Tablet PO SCH (08:26)
[2017-06-19] MEDS: Topiramate 100 MG TABLET PO SCH ×2 (08:26→20:09)
[2017-06-19] MEDS: predniSONE 20 MG TABLET PO SCH (08:26)
[2017-06-19] MEDS: FLUoxetine 20 MG CAPSULE PO SCH (08:26)
[2017-06-19] MEDS: Loratadine 10 MG TABLET PO SCH (08:26)
[2017-06-19] MEDS: Insulin LISPRO 300 UNITS/3 ML VIAL SQ SCH ×3 (08:28→17:01)
[2017-06-19] MEDS: cefTRIAXone 1,000 MG in Water for inj. (sterile) 10 ML IVP SCH (20:07)
[2017-06-19] MEDS: traZODone 50 MG TABLET PO SCH (20:09)
[2017-06-19] MEDS: Azithromycin 250 MG TABLET PO SCH (20:09)
--- NOTE | 2017-06-19 20:42 | Internal Med Progress Note ---
Date of Encounter: 06/19/17 Time of Encounter: 10:39 - Assessment and plan (1) Acute and chronic respiratory failure with hypoxia Current Visit: No Status: Acute Assessment and plan: Failed to respond to antibiotics and corticosteroids as an outpatient setting. I did review a recent ED visit for psychosis on 06/02, which notes patient was compliant with her medications. This could be medication non-compliance in regards to COPD. She is afebrile with a mild leukocytosis of 14, possibly from steroids. Her X-ray and CTA chest are both negative. Suspect this could be a COPD trigger not associated with infection or a viral process. Continue supplemental O2, wean as tolerated Continue Prednisone, Now Day #2 of corticosteroid treatment Continue Rocephin/Azithromycin. Plan Azithromycin to stop after 3 days treatment of 500 mg. Duo nebs Q3H Follow-up cultures. Consider pulmonology consult if no improvement despite therapy. (2) COPD exacerbation Current Visit: Yes Status: Acute Assessment and plan: Failed to respond to antibiotics and corticosteroids as an outpatient setting. I did review a recent ED visit for psychosis on 06/02, which notes patient was compliant with her medications. This could be medication non-compliance in regards to COPD. She is afebrile with a mild leukocytosis of 14, possibly from steroids. Her X-ray and CTA chest are both negative. Suspect this could be a COPD trigger not associated with infection or a viral process. (3) Leukocytosis Current Visit: Yes Status: Acute Assessment and plan: Corticosteroid therapy vs infection. Today went from 14 to 19. She only received one dose of solu medrol yesterday, will recheck tomorrow after she has had two full days worth of treatment. If she shows signs of infection/ worsening infection, will broaden her antibiotic coverage. Continue Rocephin/ Azithromycin. Qualifiers: Leukocytosis type: bandemia Qualified Code(s): D72.825 - Bandemia (4) Anxiety Current Visit: No Status: Acute Assessment and plan: On fluoxetine (5) Bipolar disorder Current Visit: No Status: Chronic Assessment and plan: Kym hollingsworth Qualifiers: Active/Remission status: currently active Current bipolar episode type: depressed Current episode severity: severe Psychotic features: with psychotic features Qualified Code(s): F31.5 - Bipolar disorder, current episode depressed, severe, with psychotic features (6) CAD (coronary artery disease) Current Visit: No Status: Chronic Assessment and plan: aspirin, lipitor, cardiac/ADA diet Qualifiers: Coronary Disease-Associated Artery/Lesion type: [place] artery [place] vs. transplanted heart: [place] heart Associated angina: without angina Qualified Code(s): I25.10 - Atherosclerotic heart disease of [place] coronary artery without angina pectoris (7) Diabetes mellitus Current Visit: No Status: Chronic Assessment and plan: ADA, insulin sliding scale Qualifiers: Diabetes mellitus type: type 2 Diabetes mellitus complication status: without complication Diabetes mellitus intermodal dispatcher insulin use: without half-way use Qualified Code(s): E11.9 - Type 2 diabetes mellitus without complications (8) Dyslipidemia Current Visit: No Status: Chronic Assessment and plan: Lipitor, aspirin (9) GERD (gastroesophageal reflux disease) Current Visit: No Status: Chronic Qualifiers: Esophagitis presence: esophagitis presence not specified Qualified Code(s) : K21.9 - Gastro-esophageal reflux disease without esophagitis (10) Hypothyroidism Current Visit: No Status: Chronic Assessment and plan: Levothyroxine Qualifiers: Hypothyroidism type: acquired Qualified Code(s): E03.9 - Hypothyroidism, unspecified (11) Tobacco abuse Current Visit: No Status: Chronic Assessment and plan: We had discussion in ED upon admission about smoking cessation. (12) Mixed connective tissue disease Current Visit: No Status: Chronic Assessment and plan: Most likely why she is on hydroxychlorquine. There were rheumatology labs done in 05/05/17. If she shows no signs of respiratory improvement, will consider a Pulmonology consult. - Subjective Interval history: still feels short of breath. Was unable to wean off O2. Denies CP, fevers/ chills, n/v. - Constitutional Vitals: Temp Pulse Resp BP Pulse Ox 98.3 F 68 16 132/85 95 06/19/17 19:10 06/19/17 19:10 06/19/17 19:10 06/19/17 19:10 06/19/17 19:10 General appearance: Present: A&O X 3. Absent: mild distress (no longer in mild distress as seen yesterday) - Respiratory Respiratory exam: Present: prolonged expiratory phase, wheezes (end expiratory) . Absent: accessory muscle use, chest wall tenderness, decreased breath sounds , rales, respiratory distress - Cardiovascular Cardiovascular exam: Present: RRR, +S1, +S2. Absent: diastolic murmur, gallop, rubs, systolic murmur - GI/Abdominal GI/Abdominal exam: Present: normal bowel sounds, soft, no peritoneal signs. Absent: distended, tenderness - Extremities Exam Extremities exam: Present: warm, radial pulses palpable and symmetrical. Absent : calf tenderness, cyanotic, pedal edema - Psychiatric Psychiatric exam: Present: flat affect Internal Medicine: Result - Labs CBC & Chem 7: 06/19/17 05:55 06/19/17 05:55 Labs: Short CBC 06/19/17 Range/Units 05:55 WBC 19.1 H (4.3-11.1) K/mcL Hgb 13.8 (11.5-15.4) g/dL Hct 41.8 (35.3-44.9) % Plt Count 364 (140-400) K/mcL Neutrophils # 14.7 H (1.6-8.9) K/mcL BMP 06/19/17 05:55 Sodium 141 Potassium 3.8 Chloride 110 H Carbon Dioxide 22 BUN 11 Creatinine 0.73 Glucose 119 H Calcium 8.7 - ABG Interpretation ABG results: PT/INR, D-dimer D-Dimer 406 ng/mLFEU (0-500) 06/18/17 10:40 Consult Discharge Plan - Plan Referrals: Mainor Ardon DO [Primary Care Provider] -
[2017-06-20 04:18] LABS: Basophils % 0.2 %; Eosinophils % 0.3 %; Hematocrit 41.1 % (35.3-44.9); Hemoglobin 13.6 g/dL (11.5-15.4); Immature Granulocytes % 0.3 % (0-4); Lymphocytes # 4.4 K/mcL (0.6-4.6); Lymphocytes % 35.6 %; Mean Corpuscular HGB Conc 33.1 g/dL (31.6-35.5); Mean Corpuscular Hemoglobin 30.6 pg (28.0-33.3); Mean Corpuscular Volume 92.4 fL (83.0-100.0); Mean Platelet Volume 8.2 fL (9.4-12.4); Monocytes # 1.2 K/mcL (0.0-1.3); Neutrophils # 6.6 K/mcL (1.6-8.9); Platelet Count 325 K/mcL (140-400); Red Blood Count 4.45 M/mcL (3.82-4.97); Red Cell Distribution Width 14.3 % (11.5-14.5); Segmented Neutrophils % 53.6 %
[2017-06-20 04:46] LABS: BUN/Creatinine Ratio 18 (6-26); Blood Urea Nitrogen 14 mg/dL (7-20); Calcium 8.9 mg/dL (8.6-10.8); Carbon Dioxide 25 mEq/L (19-29); Chloride 106 mEq/L (98-109); Glucose 127 mg/dL (70-99); Osmolality,Calculated 290 (280-300); Potassium 3.4 mEq/L (3.5-4.5); Sodium 139 mEq/L (136-145); eGFR For African Americans > 60 (> 60); eGFR For Non-African Americans > 60 (> 60)
[2017-06-20] MEDS: Ipratropium/Albuterol Neb 3 ML IH SCH ×4 (04:48→22:27)
[2017-06-20] MEDS: *HR* Enoxaparin 40 MG/0.4 ML SYRINGE SQ SCH (05:08)
[2017-06-20] MEDS: FLUoxetine 20 MG CAPSULE PO SCH (07:46)
[2017-06-20] MEDS: predniSONE 20 MG TABLET PO SCH (07:46)
[2017-06-20] MEDS: Ziprasidone 80 MG CAPSULE PO SCH ×2 (07:47→20:38)
[2017-06-20] MEDS: Loratadine 10 MG TABLET PO SCH (07:47)
[2017-06-20] MEDS: Aspirin Enteric Coated 81 MG Tablet PO SCH (07:47)
[2017-06-20] MEDS: Topiramate 100 MG TABLET PO SCH ×2 (07:47→20:38)
[2017-06-20] MEDS: Cholecalciferol (D-3) 1,000 UNIT TABLET PO SCH (07:47)
[2017-06-20] MEDS: Insulin LISPRO 300 UNITS/3 ML VIAL SQ SCH ×3 (07:49→17:00)
[2017-06-20] MEDS: Nicotine 21 MG PATCH.TD24 TD SCH (17:04)
--- NOTE | 2017-06-20 17:30 | Electrocardiograph Report ---
[place] [id number] Test Date: 2017-06-18 Pat Name: Aiyana Ash Department: 102 Room: 2A23 Gender: F Partner Integration Planner: Jamel : 1965 Requested By: Trent Barron Order Number: [id number] Reading MD: Pepe Adler MD Measurements Intervals [place] Rate: 92 P: 15 WV: 156 QRS: 9 QRSD: 89 T: 5 QT: 385 QTc: 435 Interpretive Statements SINUS RHYTHM LOW QRS VOLTAGE IN PRECORDIAL LEADS Electronically Signed On 06-20-2017 17:28:46 EST by Pepe Adler MD
[2017-06-20] MEDS: cefTRIAXone 1,000 MG in Water for inj. (sterile) 10 ML IVP SCH (20:37)
[2017-06-20] MEDS: traZODone 50 MG TABLET PO SCH (20:38)
[2017-06-20] MEDS: Azithromycin 250 MG TABLET PO SCH (20:38)
--- NOTE | 2017-06-20 20:45 | Internal Med Progress Note ---
Date of Encounter: 06/20/17 Time of Encounter: 13:43 - Assessment and plan (1) Acute and chronic respiratory failure with hypoxia Current Visit: No Status: Acute Assessment and plan: Failed to respond to antibiotics and corticosteroids as an outpatient setting. Leukocytosis improved from 19 to 12, she remains afebrile. Her X-ray and CTA chest are both negative. Now weaned off O2 last night. Will monitor for 24 hours after being off O2. Continue Prednisone, Now Day #3 of corticosteroid treatment Continue Rocephin/Azithromycin. Azithromycin to stop after 3 days treatment of 500 mg. Ally nebs Q3H Follow-up cultures. 06/18 blood cultures no growth to date (2) COPD exacerbation Current Visit: Yes Status: Acute Assessment and plan: Continue Rocephin and Azithromycin (3) Leukocytosis Current Visit: Yes Status: Acute Assessment and plan: Corticosteroid therapy vs infection. went from 19 yesterday now 12. No signs of fevers, sepsis, or worsening respiratory status.Continue Rocephin/ Azithromycin. Qualifiers: Leukocytosis type: bandemia Qualified Code(s): D72.825 - Bandemia (4) Anxiety Current Visit: No Status: Acute Assessment and plan: On fluoxetine (5) Bipolar disorder Current Visit: No Status: Chronic Assessment and plan: Kym worthingtoned Qualifiers: Active/Remission status: currently active Current bipolar episode type: depressed Current episode severity: severe Psychotic features: with psychotic features Qualified Code(s): F31.5 - Bipolar disorder, current episode depressed, severe, with psychotic features (6) CAD (coronary artery disease) Current Visit: No Status: Chronic Assessment and plan: aspirin, lipitor, cardiac/ADA diet Qualifiers: Coronary Disease-Associated Artery/Lesion type: [place] artery [place] vs. transplanted heart: [place] heart Associated angina: without angina Qualified Code(s): I25.10 - Atherosclerotic heart disease of [place] coronary artery without angina pectoris (7) Diabetes mellitus Current Visit: No Status: Chronic Assessment and plan: ADA, insulin sliding scale Qualifiers: Diabetes mellitus type: type 2 Diabetes mellitus complication status: without complication Diabetes mellitus assisted insulin use: without rodent exterminator use Qualified Code(s): E11.9 - Type 2 diabetes mellitus without complications (8) Dyslipidemia Current Visit: No Status: Chronic Assessment and plan: Lipitor, aspirin (9) GERD (gastroesophageal reflux disease) Current Visit: No Status: Chronic Qualifiers: Esophagitis presence: esophagitis presence not specified Qualified Code(s) : K21.9 - Gastro-esophageal reflux disease without esophagitis (10) Hypothyroidism Current Visit: No Status: Chronic Assessment and plan: Levothyroxine Qualifiers: Hypothyroidism type: acquired Qualified Code(s): E03.9 - Hypothyroidism, unspecified (11) Tobacco abuse Current Visit: No Status: Chronic Assessment and plan: We had discussion in ED upon admission about smoking cessation. Reintroduced the smoking discussion on 06/20. (12) Mixed connective tissue disease Current Visit: No Status: Chronic Assessment and plan: Most likely why she is on hydroxychlorquine. There were rheumatology labs done in 05/05/17. If she shows no signs of respiratory improvement, will consider a Pulmonology consult. - Subjective Interval history: Weaned off oxygen last night. Dyspnea improved. Unsure if she can go home without returning short of breath. Admits to feeling like having bronchospasms. Denies fevers/chills. - Constitutional Vitals: Temp Pulse Resp BP Pulse Ox 97.5 F L 73 16 126/83 94 06/20/17 19:25 06/20/17 19:25 06/20/17 19:25 06/20/17 19:25 06/20/17 19:25 General appearance: Present: A&O X 3. Absent: mild distress (no longer in mild distress as seen yesterday) Exam: CVS: RRR Lungs: CTAB, no wheezing/rales Abd: NT/ND Ext: no edema Internal Medicine: Result - Labs CBC & Chem 7: 06/20/17 03:23 06/20/17 03:23 Labs: Short CBC 06/20/17 Range/Units 03:23 WBC 12.4 H (4.3-11.1) K/mcL Hgb 13.6 (11.5-15.4) g/dL Hct 41.1 (35.3-44.9) % Plt Count 325 (140-400) K/mcL Neutrophils # 6.6 (1.6-8.9) K/mcL BMP 06/20/17 03:23 Sodium 139 Potassium 3.4 L Chloride 106 Carbon Dioxide 25 BUN 14 Creatinine 0.78 Glucose 127 H Calcium 8.9 - ABG Interpretation ABG results: PT/INR, D-dimer D-Dimer 406 ng/mLFEU (0-500) 06/18/17 10:40 Consult Discharge Plan - Plan Referrals: Mainor Ardon DO [Primary Care Provider] - (web request sent on 06/20/17)
[2017-06-21 03:31] LABS: Basophils % 0.2 %; Eosinophils # 0.1 K/mcL (0.0-0.6); Hematocrit 42.9 % (35.3-44.9); Hemoglobin 14.2 g/dL (11.5-15.4); Immature Granulocytes % 0.4 % (0-4); Lymphocytes # 4.6 K/mcL (0.6-4.6); Lymphocytes % 34.8 %; Mean Corpuscular HGB Conc 33.1 g/dL (31.6-35.5); Mean Corpuscular Hemoglobin 30.3 pg (28.0-33.3); Mean Corpuscular Volume 91.5 fL (83.0-100.0); Monocytes # 1.1 K/mcL (0.0-1.3); Monocytes % 8.3 %; Neutrophils # 7.3 K/mcL (1.6-8.9); Platelet Count 334 K/mcL (140-400); Red Blood Count 4.69 M/mcL (3.82-4.97); Red Cell Distribution Width 14.1 % (11.5-14.5); Segmented Neutrophils % 55.3 %
[2017-06-21 03:39] LABS: BUN/Creatinine Ratio 18 (6-26); Blood Urea Nitrogen 15 mg/dL (7-20); Calcium 8.8 mg/dL (8.6-10.8); Carbon Dioxide 22 mEq/L (19-29); Chloride 108 mEq/L (98-109); Glucose 131 mg/dL (70-99); Osmolality,Calculated 293 (280-300); Potassium 3.4 mEq/L (3.5-4.5); Sodium 140 mEq/L (136-145); eGFR For African Americans > 60 (> 60); eGFR For Non-African Americans > 60 (> 60)
[2017-06-21] MEDS: Ipratropium/Albuterol Neb 3 ML IH SCH ×2 (05:05→10:31)
[2017-06-21] MEDS: *HR* Enoxaparin 40 MG/0.4 ML SYRINGE SQ SCH (05:11)
[2017-06-21 06:52] VITALS: BP 152/84
[2017-06-21] MEDS: Ziprasidone 80 MG CAPSULE PO SCH (09:19)
[2017-06-21] MEDS: predniSONE 20 MG TABLET PO SCH (09:19)
[2017-06-21] MEDS: FLUoxetine 20 MG CAPSULE PO SCH (09:19)
[2017-06-21] MEDS: Topiramate 100 MG TABLET PO SCH (09:20)
[2017-06-21] MEDS: Nicotine 21 MG PATCH.TD24 TD SCH (09:20)
[2017-06-21] MEDS: Aspirin Enteric Coated 81 MG Tablet PO SCH (09:20)
[2017-06-21] MEDS: Loratadine 10 MG TABLET PO SCH (09:20)
[2017-06-21] MEDS: Cholecalciferol (D-3) 1,000 UNIT TABLET PO SCH (09:21)
[2017-06-21] MEDS: Insulin LISPRO 300 UNITS/3 ML VIAL SQ SCH (09:23)
--- NOTE | 2017-06-21 10:25 | Discharge Summary ---
Date of Encounter: 06/21/17 Time of Encounter: 10:29 - Discharge Diagnosis (1) Acute and chronic respiratory failure with hypoxia Priority: Primary Status: Acute (2) COPD exacerbation Priority: Secondary Status: Acute (3) Leukocytosis Priority: Secondary Status: Acute Qualifiers: Leukocytosis type: bandemia Qualified Code(s): D72.825 - Bandemia (4) Anxiety Priority: Secondary Status: Acute (5) Bipolar disorder Priority: Secondary Status: Chronic Qualifiers: Active/Remission status: currently active Current bipolar episode type: depressed Current episode severity: severe Psychotic features: with psychotic features Qualified Code(s): F31.5 - Bipolar disorder, current episode depressed, severe, with psychotic features (6) CAD (coronary artery disease) Priority: Secondary Status: Chronic Qualifiers: Coronary Disease-Associated Artery/Lesion type: [place] artery [place] vs. transplanted heart: [place] heart Associated angina: without angina Qualified Code(s): I25.10 - Atherosclerotic heart disease of [place] coronary artery without angina pectoris (7) Diabetes mellitus Priority: Secondary Status: Chronic Qualifiers: Diabetes mellitus type: type 2 Diabetes mellitus complication status: without complication Diabetes mellitus bed bug exterminator insulin use: without residential use Qualified Code(s): E11.9 - Type 2 diabetes mellitus without complications (8) Dyslipidemia Priority: Secondary Status: Chronic (9) GERD (gastroesophageal reflux disease) Priority: Secondary Status: Chronic Qualifiers: Esophagitis presence: esophagitis presence not specified Qualified Code(s) : K21.9 - Gastro-esophageal reflux disease without esophagitis (10) Hypothyroidism Priority: Secondary Status: Chronic Qualifiers: Hypothyroidism type: acquired Qualified Code(s): E03.9 - Hypothyroidism, unspecified (11) Tobacco abuse Priority: Secondary Status: Chronic (12) Mixed connective tissue disease Priority: Secondary Status: Chronic - Discharge Medications Prescriptions: Nicotine Patch [Nicoderm] 21 mg TD DAILY #30 patch.td24 predniSONE [PredniSONE] 40 mg PO DAILY #3 tablet Home Medications: Aspirin [Lo-Dose Aspirin EC] 81 mg PO DAILY 07/09/16 [History] Hydroxychloroquine [Plaquenuil] 200 mg PO BID 07/09/16 [History] Levothyroxine [Synthroid] 50 mcg PO QAM 07/09/16 [History] Atorvastatin [Lipitor] 40 mg PO HS #60 tablet 08/07/16 [Rx] Ergocalciferol (VITAMIN D2) [Vitamin D2] 50,000 unit PO QWEEK 01/06/17 [History] Trazodone HCl 100 mg PO HS #30 tablet 01/11/17 [Rx] Loratadine [Allergy Relief] 10 mg PO DAILY #30 tablet 05/26/17 [Rx] Omeprazole [PriLOSEC] 40 mg PO DAILY 05/27/17 [History] Topiramate [Topamax] 100 mg PO BID 05/27/17 [History] FLUoxetine HCl [Prozac] 40 mg PO DAILY #60 capsule 06/02/17 [Rx] Ziprasidone [Geodon] 80 mg PO BID #60 capsule 06/02/17 [Rx] guaiFENesin [Guaifenesin] 10 ml PO Q6H PRN 06/18/17 [History] Nicotine Patch [Nicoderm] 21 mg TD DAILY #30 patch.td24 06/21/17 [Rx] predniSONE [PredniSONE] 40 mg PO DAILY #3 tablet 06/21/17 [Rx] Allergies/Adverse Reactions: 3 Allergy/AdvReac Type Severity Reaction Status Date / Time carbamazepine [From Tegretol] Allergy See Verified 06/18/17 10:25 Comments divalproex sodium Allergy See Verified 06/18/17 10:25 [From Depakote] Comments [place] Allergy See Verified 06/18/17 10:25 Comments meloxicam [From Mobic] Allergy See Verified 06/18/17 10:25 Comments phenytoin [From Dilantin] Allergy See Verified 06/18/17 10:25 Comments tramadol [From Ultram] Allergy See Verified 06/18/17 10:25 Comments methocarbamol [From Robaxin] AdvReac Dizziness Verified 06/18/17 10:25 NSAIDS (Non-Steroidal AdvReac See Verified 06/18/17 10:25 Anti-Inflamma Comments Date of admission: 06/18/17 16:20 Primary care physician: Mainor Ardon DO Consults: 06/18/17 18:27 Consult to Nurse Navigator [CONS] Routine Comment: Discharging clinician: Yamile Crowely - Patient Status Disposition: Home Health Service Condition: Fair Functional capacity at discharge: independent ambulation Overall status at discharge: patient is progressing back to baseline - Discharge Instructions Follow Up With: Ferdous,Aasia, DO [Primary Care Provider] - (web request sent on 06/20/17) - Diet and Activity Activity: increase activity as tolerated Diet: diabetic diet, low fat, low cholesterol, low salt diet Interval History: Patient is a 51 year old female with history of COPD who presented for dyspnea. She initially had complains of non-productive cough and fevers and chills, this progressively lead to dyspnea within past day. She was treated for exacerbation recently as OP with Levaquin and Prednisone. She is a current smoker. She denies chest pain, nausea/vomiting, diaphoresis, leg swelling, orthopnea, tachypnea, palpitations, hemoptysis, sick contacts. She had an echo done in 02/2017 which showed normal EF and wall motion. In the ED a chest x-ray was negative and to rule out a PE, a CTA was done and was negative. Patient was treated with nebulizers and solumedrol. She does not require oxygen at home but in the ED she did become hypoxic with conversation even on 2 L NC. She was started on Prednisone 40 mg daily, Rocephin, Azithromycin, and scheduled Duo Neb treatment. She was able to wean off oxygen after 2 days of therapy on to room air. She tested negative for flu, blood culture showed no growth since 06/18.She finished 3 days of azithromycin 500 mg and so therapy was completed. She had 3 morales therapy of Rocephin. She was discharged home with amoxicillin to for 4 days to complete total of 7 days of pneumonia treatment. She is sent with Prednisone to complete a 40 mg burst. We discussed tobacco cessation in depth and she is willing to try nicotine patches and follow-up with her primary care provider in regards to cessation and follow- up for exacerbation of COPD. I advised writing down COPD triggers other than smoking, writing down smoking desire triggers, and come up with a set quit date. Hospital course: Ms. Ash is a 51 year old female Time spent discussing smoking cessation with patient: more than 10 minutes - Time Spent with Patient Total time spent providing and/or coordinating discharge services: Less than 30 minutes - Constitutional Vitals: Temp Pulse Resp BP Pulse Ox 97.2 F L 98 18 152/84 92 06/21/17 06:45 06/21/17 06:45 06/21/17 06:45 06/21/17 06:45 06/21/17 06:45 General appearance: Present: A&O X 3, no acute distress. Absent: mild distress (no longer in mild distress as seen yesterday) Exam: - Head Head exam: Present: atraumatic, normocephalic - Respiratory Respiratory exam: Present: decreased breath sounds. Absent: accessory muscle use, chest wall tenderness, prolonged expiratory phase, rales, wheezes, tachypnea - Cardiovascular Cardiovascular exam: Present: tachycardia. Absent: clicks, diastolic murmur, distant heart sounds - Extremities Exam Extremities exam: Present: warm, radial pulses palpable and symmetrical. Absent : calf tenderness, cyanotic, pedal edema
--- NOTE | 2017-06-21 10:26 | Physician Discharge Referral ---
Home Health/Hosp Referral Info Transfer to: Home Health - Diagnosis (1) Acute and chronic respiratory failure with hypoxia Priority: Primary Status: Acute (2) COPD exacerbation Priority: Secondary Status: Acute (3) Leukocytosis Priority: Secondary Status: Acute (4) Anxiety Priority: Secondary Status: Acute (5) Bipolar disorder Priority: Secondary Status: Chronic (6) CAD (coronary artery disease) Priority: Secondary Status: Chronic (7) Diabetes mellitus Priority: Secondary Status: Chronic (8) Dyslipidemia Priority: Secondary Status: Chronic (9) GERD (gastroesophageal reflux disease) Priority: Secondary Status: Chronic (10) Hypothyroidism Priority: Secondary Status: Chronic (11) Tobacco abuse Priority: Secondary Status: Chronic (12) Mixed connective tissue disease Priority: Secondary Status: Chronic - Respiratory Orders Smoking Cessation: Smoking cessation has been advised. For more information, call the [place] Tobacco Quit Line at 1-006-YROS-NOW. - Services Needed Following services are medically necessary services: Home Health Aide - Transfer Medications Prescriptions: Nicotine Patch [Nicoderm] 21 mg TD DAILY #30 patch.td24 predniSONE [PredniSONE] 40 mg PO DAILY #3 tablet Home Medications: Aspirin [Lo-Dose Aspirin EC] 81 mg PO DAILY 07/09/16 [History] Hydroxychloroquine [Plaquenuil] 200 mg PO BID 07/09/16 [History] Levothyroxine [Synthroid] 50 mcg PO QAM 07/09/16 [History] Atorvastatin [Lipitor] 40 mg PO HS #60 tablet 08/07/16 [Rx] Ergocalciferol (VITAMIN D2) [Vitamin D2] 50,000 unit PO QWEEK 01/06/17 [History] Trazodone HCl 100 mg PO HS #30 tablet 01/11/17 [Rx] Loratadine [Allergy Relief] 10 mg PO DAILY #30 tablet 05/26/17 [Rx] Omeprazole [PriLOSEC] 40 mg PO DAILY 05/27/17 [History] Topiramate [Topamax] 100 mg PO BID 05/27/17 [History] FLUoxetine HCl [Prozac] 40 mg PO DAILY #60 capsule 06/02/17 [Rx] Ziprasidone [Geodon] 80 mg PO BID #60 capsule 06/02/17 [Rx] guaiFENesin [Guaifenesin] 10 ml PO Q6H PRN 06/18/17 [History] Nicotine Patch [Nicoderm] 21 mg TD DAILY #30 patch.td24 06/21/17 [Rx] predniSONE [PredniSONE] 40 mg PO DAILY #3 tablet 06/21/17 [Rx] Allergies/Adverse Reactions: 3 Allergy/AdvReac Type Severity Reaction Status Date / Time carbamazepine [From Tegretol] Allergy See Verified 06/18/17 10:25 Comments divalproex sodium Allergy See Verified 06/18/17 10:25 [From Depakote] Comments [place] Allergy See Verified 06/18/17 10:25 Comments meloxicam [From Mobic] Allergy See Verified 06/18/17 10:25 Comments phenytoin [From Dilantin] Allergy See Verified 06/18/17 10:25 Comments tramadol [From Ultram] Allergy See Verified 06/18/17 10:25 Comments methocarbamol [From Robaxin] AdvReac Dizziness Verified 06/18/17 10:25 NSAIDS (Non-Steroidal AdvReac See Verified 06/18/17 10:25 Anti-Inflamma Comments Certification: Further, I certify that my clinical findings support that this patient is homebound (i.e. absences from home require considerable and taxing effort and are for medical reasons or shinto services or infrequently or short duration when for other reasons) because: Homebound Reason: Patient requires assistance of a person or device to safely leave home (Also needs help with medication dosing.) Attestation: My signature below is to certify that this patient is under my care and that I, or nurse practitioner, or a physician's geriatric assistant working with me, has a face-to -face encounter with this patient.
[2017-06-21 14:58] LABS: Mycoplasma pneumoniae IgG 0.18 U/L (<=0.09); Procalcitonin <0.07 ng/mL (<=0.10)
== END 2017-06-21 11:40 | disposition home or self-care (01) | DRG 190 ==
LOC: EMEROO 10:21 → 2ANU 10:21
PROVIDERS: ADMIT Internal Medicine; ATTEND Internal Medicine